=== PATIENT | female | born 1960 | race Caucasian/White ===

== ENCOUNTER 2021-10-06 11:00 | Outpatient (CLI) | payer MEDICARE, SELFPAY ==
[2021-10-06 11:40] LABS: Basophils % 0.4 %; Eosinophils % 0.1 %; Hematocrit 34.9 % (37.0-47.0); Hemoglobin 11.8 g/dL (11.5-15.3); Lymphocytes # 2.5 10^3/uL (0.8-4.8); Lymphocytes % 30.9 %; Mean Corpuscular HGB Conc 33.8 g/dL (30.0-36.0); Mean Corpuscular Hemoglobin 31.2 pg (28.0-34.0); Mean Corpuscular Volume 92.3 fl (81-99); Mean Platelet Volume 11.4 fL (7.4-10.4); Monocytes # 0.5 10^3/uL (0.2-0.9); Monocytes % 6.3 %; Neutrophils # 5.08 10^3/uL (1.8-7.7); Neutrophils % 62.2 %; Nucleated Red Blood Cells % 0 %; Platelet Count 279 10^3/cmm (130-400); Red Blood Count 3.78 10^6/uL (4.1-5.3); Red Cell Distribution Width 13.8 % (12.1-15.1); White Blood Count 8.2 10^3/uL (4.0-10.0)
[2021-10-06 12:07] LABS: Alanine Aminotransferase < 5 U/L (0-33); Albumin Level 4.3 g/dL (3.5-5.2); Alkaline Phosphatase 73 IU/L (35-105); Anion Gap 16.8 (5-19); Aspartate Amino Transferase 11 U/L (0-32); Blood Urea Nitrogen 7 mg/dL (6-20); Calcium 8.9 mg/dL (8.5-10.5); Carbon Dioxide 22 mmol/L (22-29); Chloride 103 mmol/L (98-107); Chol HDL Ratio 4.52 mg/dL (0.0-4.40); Cholesterol 199 mg/dL (0-200); Globulin 3.1 g/dL (1.3-4.6); Glomerular Filtration Rate 85.9 mL/min (90-130); Glucose 122 mg/dL (65-115); HDL Cholesterol 44 mg/dL (60-100); LDL Cholesterol Calculated 131 mg/dL (50-129); LDL HDL Ratio 2.98 RATIO (0.00-3.22); Osmolality Calculated 285 mOsm/kg (285-295); Potassium 3.8 mmol/L (3.5-5.1); Sodium 138 mmol/L (136-145); Thyroid Stimulating Hormone 0.55 uIU/mL (0.27-4.20); Total Bilirubin 0.3 mg/dL (0.15-1.2); Total Protein 7.4 g/dL (6.6-8.7); Triglycerides 120 mg/dL (0-150)
[2021-10-06 12:18] LABS: HIV 1 & 2 Antibody Non-Reactive (Non-Reactiv); HIV 1 & 2 Antigen Non-Reactive (Non-Reactiv)
[2021-10-06 14:42] LABS: Hepatitis C Virus Antibody Reactive (Nonreactive)
[2021-10-08 00:28] LABS: HEP C RNA Viral Load Quant <1.18 NOT DETECTED Log IU/mL (NOT DETECTED); HEP C RNA Viral Load Quant <15 NOT DETECTED IU/mL (NOT DETECTED)
== END 2021-10-06 11:01 | disposition home or self-care (01) ==
LOC: LAB 11:06
PROVIDERS: Family Provider Family Medicine; PCP Family Medicine; Visit Provider Family Medicine
DX: Z76.89 Persons encountering health services in other specified circumstances (principal); E78.2 Mixed hyperlipidemia; Z79.899 Other long term (current) drug therapy
CPT/HCPCS: 36415; 80053; 80061; 84443; 85025; 86803; 87522; 87806

== ENCOUNTER → 2021-10-28 09:58 | Outpatient (BNVA) | payer OTHER, SELFPAY | PROVIDERS: Family Provider Family Medicine; PCP Family Medicine; Visit Provider Psychiatry & Neurology Psychiatry | DX: F25.9 Schizoaffective disorder, unspecified (principal); F41.0 Panic disorder [episodic paroxysmal anxiety]; F41.1 Generalized anxiety disorder; M54.50 Low back pain, unspecified; Z79.899 Other long term (current) drug therapy | CPT/HCPCS: 80307 ==

== ENCOUNTER 2021-11-13 10:33 | Inpatient (IN) | payer MEDICARE, MEDICAID, SELFPAY ==
[2021-11-13 10:36] VITALS: BP 123/82; PULSE 81; RESP 16; TEMP 36.6; O2SAT 94; BMI 26.6
--- NOTE | 2021-11-13 10:50 | PC.NURSE ---
Pt reports feeling stressed and hasnt been able to keep anything down. Reports only nauseous when she drinks something. States she lives [facility] a [facility] and she feels like people are watching her in her shower and possibly putting stuff in her drinks. States she sees things in the shower drain and things go into her uterus and fire darts. Pt reports lower abdominal pain for last 4 days. Pt reports she fell off her bed a couple days ago onto the hard floor. Pt denies any hallucinations. Denies SI/Hi
[2021-11-13 11:00] LABS: Basophils # 0.1 10^3/uL (0.0-0.1); Basophils % 0.7 %; Eosinophils % 0.3 %; Hematocrit 37.2 % (37.0-47.0); Lymphocytes # 2.1 10^3/uL (0.8-4.8); Lymphocytes % 28.2 %; Mean Corpuscular HGB Conc 32.3 g/dL (30.0-36.0); Mean Corpuscular Hemoglobin 30.7 pg (28.0-34.0); Mean Corpuscular Volume 95.1 fl (81-99); Mean Platelet Volume 11.8 fL (7.4-10.4); Monocytes # 1.1 10^3/uL (0.2-0.9); Monocytes % 15.3 %; Neutrophils # 4.13 10^3/uL (1.8-7.7); Neutrophils % 55.4 %; Nucleated Red Blood Cells % 0 %; Platelet Count 227 10^3/cmm (130-400); Red Blood Count 3.91 10^6/uL (4.1-5.3); Red Cell Distribution Width 12.8 % (12.1-15.1); White Blood Count 7.5 10^3/uL (4.0-10.0)
[2021-11-13 11:08] VITALS: TEMP 36.9
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
[2021-11-13 11:29] LABS: Alanine Aminotransferase 11 U/L (0-33); Albumin Level 4.2 g/dL (3.5-5.2); Alkaline Phosphatase 89 U/L (35-105); Anion Gap 17.3 (5-19); Aspartate Amino Transferase 32 U/L (0-32); Blood Urea Nitrogen 13 mg/dL (6-20); Calcium 9.3 mg/dL (8.5-10.5); Carbon Dioxide 25 mmol/L (22-29); Chloride 97 mmol/L (98-107); Globulin 3.3 g/dL (1.3-4.6); Glomerular Filtration Rate 38.6 mL/min (90-130); Glucose 95 mg/dL (65-115); Osmolality Calculated 282 mOsm/kg (285-295); Potassium 3.3 mmol/L (3.5-5.1); Salicylate 0.5 mg/dL (3-10); Sodium 136 mmol/L (136-145); Total Bilirubin 0.4 mg/dL (0.15-1.2); Total Protein 7.5 g/dL (6.6-8.7)
[2021-11-13 11:30] LABS: Acetaminophen < 5.0 ug/mL (10-30)
--- NOTE | 2021-11-13 11:58 | PC.PHAR ---
UNABLE TO VERIFY MEDICATIONS WITH PT-MEDICATIONS ENTERED ARE MEDS THAT A [facility] WORKER HAD WROTE DOWN THAT THE PT TOOK AND ALSO WHAT EXT MED HISTORY SHOWS HAS BEEN FILLED RECENTLY-NOTES ARE MADE IN THE PHARMACY COMMENTS
[2021-11-13 12:00] VITALS: BP 139/84; RESP 14
--- NOTE | 2021-11-13 12:35 | PC.NURSE ---
Patient stated she doesn't walk, proceeded to sit on side of bed then lay back down, she was able to change out of her clothes into scrubs from lying position, personal belongings bagged and removed from room.
--- NOTE | 2021-11-13 12:50 | PC.NURSE ---
Pt requesting to see her sister who she was pointing in the [place] and yelling [place]. Pt does not have any visitors here. Informed pt she does not have any visitors here currently, pt able to be redirected.
--- NOTE | 2021-11-13 13:21 | PC.NURSE ---
report given to Bree on NPU
[2021-11-13 13:32] VITALS: BP 126/74; PULSE 70; RESP 17; TEMP 36.6; O2SAT 98
[2021-11-13 14:00] VITALS: BP 126/74; PULSE 70; RESP 17; TEMP 36.6; O2SAT 98
[2021-11-13 14:18] LABS: Alcohol Level < 10 mg/dL (0-10)
--- NOTE | 2021-11-13 14:51 | PC.ADMIT ---
[id number] Admission Note: The patient,Jade Rapp,60 y/o, was given written information regarding hospital policies, unit procedures and contact persons. Patient's smoking status: current every day smoker. Vital Signs - 8 hr 11/13/21 10:36 11/13/21 11:08 11/13/21 12:00 Temperature 98 F 98.5 F Pulse Rate 81 Respiratory Rate 16 14 Blood Pressure 123/82 139/84 Pulse Oximetry 94 Oxygen Delivery Method Room Air 11/13/21 13:32 11/13/21 14:00 Temperature 97.9 F 97.9 F Pulse Rate 70 70 Respiratory Rate 17 17 Blood Pressure 126/74 126/74 Pulse Oximetry 98 98 ADMITTED FROM ER VIA WHEELCHAIR AND SECURITY AT 1400. PT IS ON A 96 HOUR HOLD THAT ENDS ON 11/19/21 AT 1400. PT UNABLE TO GIVE ANY VIABLE INFORMATION DUE TO CURRENT ACUTE PSYCHOSIS. IT APPEARS PT IS RESPONDING TO INTERNAL AND EXTERNAL STIMULI. PT THINKS SHE IS SEEING AND HEARING HER SISTER IN THE HALLWAY.PT IS ABLE TO VERBALLY REDIRECT. PT STATES SHE IS HERE BECAUSE I THINK I FELT SICK PT DENIES SI/HI AND AVH AT THIS TIME. PT STATES I DON'T WANT TO ANSWER QUESTIONS I WANT TO EAT. PT WAS GIVEN A SANDWICH AND A DRINK. PT IS UNABLE TO REPORT WHAT MEDS SHE TAKES OR HER PHARMACY SO THIS RN CAN VERIFY. WILL CONTACT PHARMACY ON CHART TO VERIFY CURRENT MEDICATIONS. PT WAS OBSERVED RIPPING UP PAPER WORK AND 96 HOUR HOLD INFORMATION. PT WAS ORIENTATED TO UNIT. ALL QUESTIONS ANSWERED AND SUPPORT VOICED. Oxygen Delivery Method Room Air Room Air
[2021-11-13 14:58] LABS: Amphetamines Screen Urine Negative (Negative); Barbiturates Screen Urine Negative (Negative); Benzodiazepines Screen Urine Negative (Negative); Cocaine Screen Urine Negative (Negative); Opiate Screen Urine Negative (Negative); PCP Screen Urine Negative (Negative); THC Screen Urine Positive (Negative)
[2021-11-13] MEDS: hyDROXYzine 25 mg Capsule 50 MG PO (15:20)
--- NOTE | 2021-11-13 15:21 | PC.NURSE ---
PRN VISTARIL 50 MG GIVEN PO PER PT C/O STATED ANXIETY
[2021-11-13 19:48] VITALS: BP 103/69; PULSE 84; RESP 18; O2SAT 94
[2021-11-13] MEDS: ziprasidone hcl 40 mg Capsule 80 MG PO (23:16)
[2021-11-13] MEDS: carbidopa-levodopa 25-100mg Tablet 1 EACH PO (23:17)
[2021-11-13] MEDS: benztropine 1 mg Tablet PO (23:17)
[2021-11-13] MEDS: zolpidem 5 mg Tablet 10 MG PO (23:18)
[2021-11-13] MEDS: gabapentin 300 mg Capsule PO (23:18)
[2021-11-13] MEDS: ropinirole 1 mg Tablet PO (23:18)
[2021-11-13] MEDS: ibuprofen 600 mg Tablet PO (23:20)
[2021-11-14 06:00] VITALS: RESP 16
--- NOTE | 2021-11-14 09:09 | PC.OT ---
Pt sleeping and RN states pt not appropriate for eval at this time. Will attempt eval at later date.
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
[2021-11-14] MEDS: FUROsemide 20 mg Tablet PO (09:45)
[2021-11-14] MEDS: divalproex ER 500 mg Tablet (24H) PO (09:46)
[2021-11-14] MEDS: sertraline 100 mg Tablet PO (09:46)
[2021-11-14] MEDS: buprenorphine-naloxone 4-1 mg Film 2 EACH SUBLINGUAL ×3 (09:46→20:25)
[2021-11-14] MEDS: gabapentin 300 mg Capsule PO ×3 (09:46→20:25)
[2021-11-14] MEDS: ropinirole 1 mg Tablet PO ×3 (09:46→20:25)
[2021-11-14] MEDS: benztropine 1 mg Tablet PO ×3 (09:46→20:25)
[2021-11-14] MEDS: carbidopa-levodopa 25-100mg Tablet 1 EACH PO ×4 (12:25→20:26)
[2021-11-14] MEDS: diclofenac 1% Topical Gel 100 gm 4 APPLIC TOPICAL ×3 (12:29→17:05)
[2021-11-14] MEDS: ziprasidone hcl 20 mg Capsule 80 MG PO ×2 (12:39→18:51)
[2021-11-14 14:00] VITALS: BP 108/73; PULSE 76; RESP 16; O2SAT 98
[2021-11-14 16:02] VITALS: PULSE 76; RESP 16; O2SAT 98
[2021-11-14] MEDS: ibuprofen 600 mg Tablet PO (16:11)
[2021-11-14] MEDS: tizanidine 4 mg Tablet PO (16:11)
[2021-11-14] MEDS: OLANZapine 5 mg ODT PO (16:12)
[2021-11-14] MEDS: zolpidem 5 mg Tablet 10 MG PO (20:25)
[2021-11-14 22:00] VITALS: RESP 15
[2021-11-14 23:15] VITALS: PULSE 72; RESP 16; O2SAT 95
[2021-11-15 06:00] VITALS: BP 109/73; PULSE 90; RESP 17; O2SAT 93
[2021-11-15] MEDS: sertraline 100 mg Tablet PO (08:44)
[2021-11-15] MEDS: ziprasidone hcl 20 mg Capsule 80 MG PO ×2 (08:44→17:04)
[2021-11-15] MEDS: divalproex ER 500 mg Tablet (24H) PO (08:46)
[2021-11-15] MEDS: gabapentin 300 mg Capsule PO ×3 (08:46→19:59)
[2021-11-15] MEDS: benztropine 1 mg Tablet PO ×3 (08:46→19:59)
[2021-11-15] MEDS: ropinirole 1 mg Tablet PO ×3 (08:46→19:59)
[2021-11-15] MEDS: FUROsemide 20 mg Tablet PO (08:46)
[2021-11-15] MEDS: buprenorphine-naloxone 4-1 mg Film 2 EACH SUBLINGUAL ×3 (08:46→19:59)
[2021-11-15] MEDS: carbidopa-levodopa 25-100mg Tablet 1 EACH PO ×4 (08:46→19:59)
[2021-11-15] MEDS: diclofenac 1% Topical Gel 100 gm 4 APPLIC TOPICAL ×3 (12:01→17:00)
[2021-11-15 14:00] VITALS: BP 95/57; PULSE 71; RESP 16; TEMP 36.7; O2SAT 98
--- NOTE | 2021-11-15 14:16 | P.NPUPN_ITS ---
Subjective NPU Subjective: Patient presents today reporting that she is feeling a little better today. We discussed her medication adherence and she denied having any organized way that she takes her medication. Just the bottles. She is not having any pill counters or planners and reported an openness to having that so that she could avoid any missed doses and any possible recreation of the situation. We discussed the likely discharge in the next 48 hours. Mental Status Exam MSE Comments: This is an overweight white female in hospital scrubs with limited grooming and adequate eye contact. Absent dentition. No abnormal movements except for mild psychomotor retardation. Cooperative with exam in mild distress. Speech was decreased rate and volume with decreased pauses. Mood described as getting better, affect less subdued. Thought process organized, thought content: patient denies suicidal or homicidal ideation, there were no delusions reported or noted, she denied any auditory or visual hallucinations. Attention and concentration were intact and memory appeared mostly reliable but none were formally tested. She?s alert and oriented times three. Insight and judgment appeared limited but improving and impulse control appeared fair Vitals/I&O/Wt Last Vital Signs Temp 98.7 F 11/15/21 20:17 Pulse 94 11/15/21 20:17 Resp 18 11/15/21 20:17 BP 78/51 11/15/21 20:17 Pulse Ox 96 11/15/21 20:17 O2 Del Method 11/15/21 20:00 Data NPU : 11/13/21 10:50 11/13/21 10:50 A&P Assessment and plan (1) Acute psychosis: Status: Acute (2) Cannabis use disorder, moderate, dependence: Status: Acute (3) Insomnia: Status: Acute Qualifiers: Insomnia type: unspecified Qualified Code(s): G47.00 - Insomnia, unspecified (4) Schizoaffective disorder: Status: Acute (5) Opioid use disorder, severe, dependence: Status: Acute (6) Opioid dependence on agonist therapy: Status: Acute Plan This is a 60-year-old white female with a long history of mental illness and some limited addiction history who presented to the emergency department with psychosis of unknown etiology and given her history is unclear whether this represented her baseline illness exacerbation related to not taking medications or something else or some kind of exacerbation through addiction. 1. Continue current medication. We will continue medications and explore whether the psychotic symptoms are related to nonadherence. 2. Continue every 15 minute checks for safety. 3. Encourage individual, group and milieu therapies. 4. Encourage sober living treatment after discharge at the highest level of care to which he is willing to commit. Involuntary Hold Information 96 Hour Hold: 96 Hour Involuntary Admission: Yes 96 Hour Hold Ending Date: 11/19/21 96 Hour Hold Ending Time: 14:00 Attestations NPU Medical Necessity Statement*: Inpatient hospitalization is medically necessary and the clinically appropriate intervention at this time. We will monitor medication to make changes as indicated. Likely length of stay 1-3 days. 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
[2021-11-15] MEDS: tizanidine 4 mg Tablet PO (15:09)
[2021-11-15] MEDS: zolpidem 5 mg Tablet 10 MG PO (19:58)
[2021-11-15 20:00] VITALS: PULSE 94; RESP 16; O2SAT 98
[2021-11-15 20:17] VITALS: BP 78/51; PULSE 94; RESP 18; TEMP 37.1; O2SAT 96
[2021-11-16 06:00] VITALS: BP 96/54; PULSE 87; RESP 16; TEMP 36.8; O2SAT 95
[2021-11-16] MEDS: benztropine 1 mg Tablet PO ×3 (09:00→19:58)
[2021-11-16] MEDS: sertraline 100 mg Tablet PO (09:06)
[2021-11-16] MEDS: ropinirole 1 mg Tablet PO ×3 (09:06→19:57)
[2021-11-16] MEDS: buprenorphine-naloxone 4-1 mg Film 2 EACH SUBLINGUAL ×3 (09:06→19:58)
[2021-11-16] MEDS: ziprasidone hcl 20 mg Capsule 80 MG PO ×2 (09:06→15:58)
[2021-11-16] MEDS: divalproex ER 500 mg Tablet (24H) PO (09:08)
[2021-11-16] MEDS: FUROsemide 20 mg Tablet PO (09:08)
[2021-11-16] MEDS: carbidopa-levodopa 25-100mg Tablet 1 EACH PO ×4 (09:08→19:58)
[2021-11-16] MEDS: gabapentin 300 mg Capsule PO ×3 (09:09→19:58)
[2021-11-16] MEDS: diclofenac 1% Topical Gel 100 gm 4 APPLIC TOPICAL ×3 (09:10→19:59)
[2021-11-16 13:48] VITALS: BP 96/59; PULSE 61; RESP 17; TEMP 36.6; O2SAT 99
--- NOTE | 2021-11-16 14:03 | W.PM.NPUPNS ---
Subjective NPU Subjective: Patient presents today very focused on discharge. Unfortunately she has nowhere to go and seem to have limited insight on the impact of that on being discharged. We did have a another lengthy discussion about the importance of her having an organized medication dispensing process. Discussing that he is taking 1 pill out of the bottle when necessary becomes a very difficult way to contract with her medication was taken for the day given so many medications. She was agreeable to this and reports that unfortunately if she returns to [facility] they do not provide that. We discussed working with the treatment team in the morning to see if she can return to [facility] that discharge was eminent. Mental Status Exam MSE Comments: This is an overweight white female in hospital scrubs with limited grooming and adequate eye contact. Absent dentition. No abnormal movements except for mild psychomotor retardation. Cooperative with exam in no acute distress. Speech was decreased rate and volume. Mood described as getting better, affect congruent. Thought process organized, thought content: patient denies suicidal or homicidal ideation, there were no delusions reported or noted, she denied any auditory or visual hallucinations. Attention and concentration were intact and memory appeared mostly reliable but none were formally tested. She?s alert and oriented times three. Insight and judgment appeared limited but improving and impulse control appeared fair Vitals/I&O/Wt Last Vital Signs Temp 97.8 F 11/16/21 13:48 Pulse 61 11/16/21 13:48 Resp 17 11/16/21 13:48 BP 96/59 11/16/21 13:48 Pulse Ox 99 11/16/21 13:48 O2 Del Method 11/16/21 13:48 Weight last 48 hrs Weight 77.292 kg Data NPU : 11/13/21 10:50 11/13/21 10:50 A&P Assessment and plan (1) Acute psychosis: Status: Acute (2) Cannabis use disorder, moderate, dependence: Status: Acute (3) Insomnia: Status: Acute Qualifiers: Insomnia type: unspecified Qualified Code(s): G47.00 - Insomnia, unspecified (4) Schizoaffective disorder: Status: Acute (5) Opioid use disorder, severe, dependence: Status: Acute (6) Opioid dependence on agonist therapy: Status: Acute Plan This is a 60-year-old white female with a long history of mental illness and some limited addiction history who presented to the emergency department with psychosis of unknown etiology and given her history is unclear whether this represented her baseline illness exacerbation related to not taking medications or something else or some kind of exacerbation through addiction. 1. Continue current medication. We will continue medications and explore whether the psychotic symptoms are related to nonadherence. 2. Continue every 15 minute checks for safety. 3. Encourage individual, group and milieu therapies. 4. Encourage sober living treatment after discharge at the highest level of care to which he is willing to commit. Involuntary Hold Information 96 Hour Hold: 96 Hour Involuntary Admission: Yes 96 Hour Hold Ending Date: 11/19/21 96 Hour Hold Ending Time: 14:00 Attestations NPU Medical Necessity Statement*: Inpatient hospitalization is medically necessary and the clinically appropriate intervention at this time. We will monitor medication to make changes as indicated. Likely length of stay 1-2 days. Coding Level of Care Code Acute [employer] for [facility] Diagnoses Acute psychosis F23 Cannabis use disorder, moderate, dependence F12.20 Insomnia G47.00 Insomnia type: unspecified Schizoaffective disorder F25.9 Opioid use disorder, severe, dependence F11.20 Opioid dependence on agonist therapy F11.20
[2021-11-16] MEDS: zolpidem 5 mg Tablet 10 MG PO (19:58)
[2021-11-16 22:00] VITALS: BP 78/41; BP 81/50; BP 88/48; PULSE 59; RESP 19; TEMP 36.6; O2SAT 94
[2021-11-17 06:00] VITALS: BP 93/60; PULSE 53; RESP 18; TEMP 36.8; O2SAT 95
[2021-11-17] MEDS: FUROsemide 20 mg Tablet PO (07:57)
[2021-11-17] MEDS: divalproex ER 500 mg Tablet (24H) PO (07:57)
[2021-11-17] MEDS: ropinirole 1 mg Tablet PO ×2 (07:57→15:08)
[2021-11-17] MEDS: carbidopa-levodopa 25-100mg Tablet 1 EACH PO ×2 (07:58→13:18)
[2021-11-17] MEDS: buprenorphine-naloxone 4-1 mg Film 2 EACH SUBLINGUAL ×2 (07:58→15:08)
[2021-11-17] MEDS: diclofenac 1% Topical Gel 100 gm 4 APPLIC TOPICAL ×2 (07:58→13:18)
[2021-11-17] MEDS: benztropine 1 mg Tablet PO ×2 (07:58→15:08)
[2021-11-17] MEDS: ziprasidone hcl 20 mg Capsule 80 MG PO (08:01)
[2021-11-17] MEDS: sertraline 100 mg Tablet PO (08:01)
[2021-11-17] MEDS: gabapentin 300 mg Capsule PO ×2 (08:01→15:08)
--- NOTE | 2021-11-17 12:12 | DCPLANNER ---
IMM completed with pt on 11/17/21 @ [id number]. Pt was given a copy of rights and she stated she understoo rights.
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
[2021-11-17 15:13] VITALS: BP 93/60; PULSE 53; RESP 18; TEMP 36.8; O2SAT 95
== END 2021-11-17 15:25 | disposition home or self-care (01) | DRG 885 ==
LOC: ER 11:30 → NP 12:48
PROVIDERS: Admitting Provider Psychiatry & Neurology Psychiatry; Emergency Provider Family Medicine; PCP Family Medicine; Visit Provider Psychiatry & Neurology Psychiatry
DX: F20.9 Schizophrenia, unspecified (principal); F11.20 Opioid dependence, uncomplicated; Z59.01 Sheltered homelessness; J44.9 Chronic obstructive pulmonary disease, unspecified; F12.20 Cannabis dependence, uncomplicated; F17.210 Nicotine dependence, cigarettes, uncomplicated; F17.290 Nicotine dependence, other tobacco product, uncomplicated; F10.21 Alcohol dependence, in remission; G47.00 Insomnia, unspecified; Z79.51 Long term (current) use of inhaled steroids
CPT/HCPCS: 36415; 80053; 80164; 80306; 80307; 81001; 85025; 96372; 97150; 97165; 99285; J0573; J1200; J3486

== ENCOUNTER 2021-11-19 00:20 | Inpatient (IN) | payer MEDICARE, MEDICAID, SELFPAY ==
[2021-11-19] VITALS (8 sets, daily range): BP systolic 90–129; BP diastolic 59–95; PULSE 60–101; RESP 12–18; TEMP 36.3–36.9; O2SAT 93–99; BMI 27.4
--- NOTE | 2021-11-19 00:32 | ED_ITS ---
HPI - Allergic Reaction General: Chief complaint: Psychiatric Symptoms Stated complaint: HALLUCINATIONS Time Seen by Provider: 11/19/21 00:23 Source: patient and EMS Mode of arrival: EMS Limitations: no limitations History of Present Illness: HPI narrative: 60-year-old female who is here from [facility] with EMS. Patient was recently discharged from the psych unit here per EMS she supposedly not been taking her meds she is acutely psychotic here with hallucinations not making any sense she is extremely paranoid denies any suicidal homicidal ideations. Denies any worsening proving factors. Associated symptoms: Deny abdominal pain, nausea or vomiting Review of Systems Const: Denies: fever(s), chills, body aches or change in appetite Eyes: Denies: blurry vision or eye discomfort ENMT: Denies: throat pain or dental pain Card: Denies: chest pain Resp: Denies: dyspnea GI: Denies: abdominal pain, nausea, vomiting or diarrhea : Denies: dysuria Musc: Denies: neck pain or back pain Skin/Breast: Denies: rash Neuro: Denies: headache(s) Psych: Reports: irritability, paranoia and visual hallucinations Miguel/Lymph: Denies: easy bruising All/Imm: Denies: urticaria PFSH ED PFSH: Medical History Psychiatric care Social History Smoking and tobacco status: current every day smoker cigarettes Packs smoked per day: 0.40 Years cigarettes smoked: 23 and e-cigarettes E-Cigarette Details: vaporizer device and with nicotine E-cig/vape details: One refill/two months. Quit status (tobacco): not considering quitting Second hand smoke exposure: No Smoking risk assessment/counseling performed?: No Alcohol intake: former Year of sobriety/quit date alcohol: 1994 Desire information about alcohol rehabilitation?: No Counseling given: No Desire information about substance/drug rehabilitation?: No Counseling given: No Physical Exam Const: COMMON NORMALS: patient oriented x3 GENERAL APPEARANCE: disheveled HENMT: COMMON NORMALS: normocephalic and atraumatic HEAD & SCALP: normocephalic and atraumatic Eye: COMMON NORMALS: Equal, round and reactive pupils present and EOMs intact bilaterally PUPIL: Yes Equal, round and reactive pupils present Neck/C-Spine: COMMON NORMALS: full ROM and supple Chest: COMMONS NORMALS: normal inspection of the chest and normal palpation of entire chest wall Resp: COMMON NORMALS: normal respiratory effort, No retractions, No use of accessory muscles and clear to auscultation bilaterally AUSCULTATION: clear to auscultation bilaterally Cardio: COMMON NORMALS: regular rate, regular rhythm and No murmurs present (Cardio) RATE: regular rate RHYTHM: regular rhythm GI: COMMON NORMALS: Normal to inspection, nondistended, normoactive bowel sounds present, Soft to palpation, non-tender and no masses PALPATION: Yes Soft to palpation Extremity: COMMON NORMALS: normal to inspection and full ROM Neuro: COMMON NORMALS: patient oriented x3, moves all extremities and no focal motor deficits Psych: COMMON NORMALS: mental status grossly normal MOOD & AFFECT: Yes an xious THOUGHT CONTENT: Yes delusions and Yes Hallucination(s) present Skin: COMMON NORMALS: no rashes or lesions noted and no wounds GENERAL SKIN EXAM: no rashes or lesions noted Course Vital Signs: Vital signs: Vital Signs Temperature 97.3 F L 11/19/21 00:21 Pulse Rate 60 11/19/21 03:26 Respiratory Rate 15 11/19/21 03:26 Blood Pressure 124/95 11/19/21 03:26 Pulse Oximetry 93 11/19/21 03:26 Oxygen Delivery Me thod 11/19/21 03:26 MDM - Allergic Reaction Medical Decision Making Patient presents here with acute psychosis she is supposedly not been taking her meds since she is discharged from here I spoke to Dr. London patient is medically cleared will admit to the psych unit. Lab Data : 11/19/21 02:07 11/19/21 02:07 Laboratory Results WBC 8.4 10^3/uL (4.0-10.0) 11/19/21 02:07 RBC 3.77 10^6/uL (4.1-5.3) L 11/19/21 02:07 Hgb 11.6 g/dL (11.5-15.3) 11/19/21 02:07 Hct 36.3 % (37.0-47.0) L 11/19/21 02:07 MCV 96.3 fl (81-99) 11/19/21 02:07 MCH 30.8 pg (28.0-34.0) 11/19/21 02:07 MCHC 32.0 g/dL (30.0-36.0) 11/19/21 02:07 RDW 12.6 % (12.1-15.1) 11/19/21 02:07 Plt Count 272 10^3/cmm (130-400) 11/19/21 02:07 MPV 11.4 fL (7.4-10.4) H 11/19/21 02:07 Neut % (Auto) 57.9 % 11/19/21 02:07 Lymph % (Auto) 28.8 % 11/19/21 02:07 Stone % (Auto) 12.4 % 11/19/21 02:07 Eos % (Auto) 0.1 % 11/19/21 02:07 Baso % (Auto) 0.7 % 11/19/21 02:07 Neut # (Auto) 4.87 10^3/uL (1.8-7.7) 11/19/21 02:07 Lymph # (Auto) 2.4 10^3/uL (0.8-4.8) 11/19/21 02:07 Stone # (Auto) 1.0 10^3/uL (0.2-0.9) H 11/19/21 02:07 Eos # (Auto) 0.0 10^3/uL (0.0-0.8) 11/19/21 02:07 Baso # (Auto) 0.1 10^3/uL (0.0-0.1) 11/19/21 02:07 Nucleated RBC % (auto) 0 % 11/19/21 02:07 Nucleated RBCs # 0.0 /100WBC 11/19/21 02:07 Sodium 137 mmol/L (136-145) 11/19/21 02:07 Potassium 3.5 mmol/L (3.5-5.1) 11/19/21 02:07 Chloride 99 mmol/L (98-107) 11/19/21 02:07 Carbon Dioxide 26 mmol/L (22-29) 11/19/21 02:07 Anion Gap 15.5 (5-19) 11/19/21 02:07 BUN 12 mg/dL (6-20) 11/19/21 02:07 Creatinine 0.6 mg/dL (0.5-0.9) 11/19/21 02:07 GFR Calculation 102.7 mL/min (90-130) 11/19/21 02:07 Glucose 103 mg/dL (65-115) 11/19/21 02:07 Calculated Osmolality 284 mOsm/kg (285-295) L 11/19/21 02:07 Calcium 8.9 mg/dL (8.5-10.5) 11/19/21 02:07 Total Bilirubin 0.2 mg/dL (0.15-1.2) 11/19/21 02:07 AST 14 U/L (0-32) 11/19/21 02:07 ALT 13 U/L (0-33) 11/19/21 02:07 Alkaline Phosphatase 80 U/L (35-105) 11/19/21 02:07 Total Protein 7.2 g/dL (6.6-8.7) 11/19/21 02:07 Albumin 3.8 g/dL (3.5-5.2) 11/19/21 02:07 Globulin 3.4 g/dL (1.3-4.6) 11/19/21 02:07 Salicylates 0.6 mg/dL (3-10) L 11/19/21 02:07 Acetaminophen < 5.0 ug/mL (10-30) L 11/19/21 02:07 Ethyl Alcohol < 10 mg/dL (0-10) 11/19/21 02:07 Discharge Plan Discharge Patient Disposition: Admitted As Inpatient Clinical Impression: Acute psychosis Condition: Stable Prescriptions: No Action albuterol sulfate 90 mcg/actuation HFA aerosol inhaler 2 puff inhalation Q6H PRN (Reason: shortness of breath or wheezing) Qty: 8.5 2RF divalproex 500 mg tablet extended release 24 hr 500 mg PO DAILY Qty: 30 2RF furosemide 20 mg tablet 20 mg PO DAILY Qty: 30 2RF gabapentin 300 mg capsule 300 mg PO TID Qty: 90 2RF omeprazole 20 mg tablet,delayed release (DR/EC) 20 mg PO BID Qty: 60 0RF ropinirole 1 mg tablet 1 mg PO TID Qty: 90 2RF sertraline 100 mg tablet 100 mg PO DAILY Qty: 30 2RF tizanidine 4 mg tablet 4 mg PO BID PRN (Reason: muscle spasticity) Qty: 60 2RF ziprasidone HCl 80 mg capsule 80 mg PO BID Qty: 60 2RF Rx Instructions: give with food (meal/snack) zolpidem 10 mg tablet 10 mg PO DAILY Qty: 30 2RF benztropine 1 mg tablet 1 mg PO TID Qty: 90 2RF buprenorphine-naloxone [Suboxone] 8-2 mg film 1 film sublingual TID Qty: 90 0RF diclofenac sodium [Arthritis Pain (diclofenac)] 1 % gel 4 g topical QID Qty: 100 2RF Rx Instructions: apply to single knee, ankle, foot; for foot includes sole/toes/top of foot diclofenac sodium 100 mg tablet extended release 24 hr 100 mg PO DAILY Qty: 90 1RF carbidopa-levodopa 25-100 mg tablet 1 tab PO QID Qty: 120 2RF diphenhydramine HCl [Benadryl Allergy] 25 mg Tablet 25 mg PO TID PRN (Reason: Allergy Symptoms) ibuprofen 200 mg Tablet 200 - 800 mg PO Q6H PRN (Reason: Pain) potassium gluconate 595 mg (99 mg) Tablet 595 mg PO DAILY Referrals: Negrito Christy DO [Primary Care Provider] - Coding Level of Care Code ED Optical Glass Inspector for Chg Fwd Exam Comprehensive
[2021-11-19] MEDS: ziprasidone 20 mg/mL SDV IM (00:43)
[2021-11-19] MEDS: diphenhydrAMINE 50 mg/mL SDV 1mL IM (00:45)
[2021-11-19] MEDS: LORazepam 1 mg Tablet 2 MG PO (00:48)
[2021-11-19 02:19] LABS: Basophils # 0.1 10^3/uL (0.0-0.1); Basophils % 0.7 %; Eosinophils % 0.1 %; Hematocrit 36.3 % (37.0-47.0); Hemoglobin 11.6 g/dL (11.5-15.3); Lymphocytes # 2.4 10^3/uL (0.8-4.8); Lymphocytes % 28.8 %; Mean Corpuscular Hemoglobin 30.8 pg (28.0-34.0); Mean Corpuscular Volume 96.3 fl (81-99); Mean Platelet Volume 11.4 fL (7.4-10.4); Monocytes % 12.4 %; Neutrophils # 4.87 10^3/uL (1.8-7.7); Neutrophils % 57.9 %; Nucleated Red Blood Cells % 0 %; Platelet Count 272 10^3/cmm (130-400); Red Blood Count 3.77 10^6/uL (4.1-5.3); Red Cell Distribution Width 12.6 % (12.1-15.1); White Blood Count 8.4 10^3/uL (4.0-10.0)
[2021-11-19 02:46] LABS: Alanine Aminotransferase 13 U/L (0-33); Albumin Level 3.8 g/dL (3.5-5.2); Alkaline Phosphatase 80 U/L (35-105); Anion Gap 15.5 (5-19); Aspartate Amino Transferase 14 U/L (0-32); Blood Urea Nitrogen 12 mg/dL (6-20); Calcium 8.9 mg/dL (8.5-10.5); Carbon Dioxide 26 mmol/L (22-29); Chloride 99 mmol/L (98-107); Globulin 3.4 g/dL (1.3-4.6); Glomerular Filtration Rate 102.7 mL/min (90-130); Glucose 103 mg/dL (65-115); Osmolality Calculated 284 mOsm/kg (285-295); Potassium 3.5 mmol/L (3.5-5.1); Salicylate 0.6 mg/dL (3-10); Sodium 137 mmol/L (136-145); Total Bilirubin 0.2 mg/dL (0.15-1.2); Total Protein 7.2 g/dL (6.6-8.7)
[2021-11-19 03:34] LABS: Acetaminophen < 5.0 ug/mL (10-30); Alcohol Level < 10 mg/dL (0-10)
--- NOTE | 2021-11-19 03:51 | PC.NURSE ---
Patient report called to [facility] on [facility], patient moving to 150.2
[2021-11-19] MEDS: OLANZapine 5 mg ODT PO ×2 (04:48→14:12)
[2021-11-19 05:03] LABS: Amphetamines Screen Urine Negative (Negative); Barbiturates Screen Urine Negative (Negative); Benzodiazepines Screen Urine Positive (Negative); Cocaine Screen Urine Negative (Negative); Opiate Screen Urine Negative (Negative); PCP Screen Urine Negative (Negative); THC Screen Urine Positive (Negative)
[2021-11-19 05:10] LABS: Bilirubin Urine Neg (Negative); Blood Urine Neg (Negative); Glucose Urine UA Norm (Normal); Ketones Urine 1+ (Negative); Nitrate Urine Negative (Negative); Protein Urine Neg (Negative); Urine Appearance Clear (CLEAR); Urine Color Yellow (Yellow); pH Urine 6.5 (5-7)
[2021-11-19 05:11] LABS: Add Urine Microscopic? YES; Leukocyte Esterase Urine 1+ (Negative); Urobilinogen Urine Norm (Negative)
[2021-11-19 05:12] LABS: Add Urine Culture? No; Amorphous Sediment Urine 1+ /hpf; Bacteria Urine 1+ /hpf; Mucus Urine 1+ /hpf; RBC Urine 0-4 /hpf (0-2); WBC Urine 0-4 /hpf (0-5)
[2021-11-19 08:27] LABS: Valproic Acid Level 23.5 ug/mL (50-100)
--- NOTE | 2021-11-19 09:05 | PC.OT ---
OT EVALUATION ORDERS RECEIVED; EVALUATION ATTEMPTED. PATIENT IS SLEEPING SOUNDLY AND DOES NOT AWAKEN TO NAME. WILL ATTEMPT AGAIN AT A LATER TIME.
[2021-11-19] MEDS: FUROsemide 20 mg Tablet PO (09:51)
[2021-11-19] MEDS: divalproex ER 500 mg Tablet (24H) PO (09:51)
[2021-11-19] MEDS: ropinirole 1 mg Tablet PO ×3 (09:51→21:10)
[2021-11-19] MEDS: pantoprazole DR 40 mg Tablet PO ×2 (09:51→18:16)
[2021-11-19] MEDS: sertraline 100 mg Tablet PO (09:51)
[2021-11-19] MEDS: ziprasidone hcl 40 mg Capsule 80 MG PO ×2 (09:52→18:16)
[2021-11-19] MEDS: benztropine 1 mg Tablet PO ×3 (09:52→21:08)
[2021-11-19] MEDS: gabapentin 300 mg Capsule PO ×3 (09:53→21:10)
[2021-11-19] MEDS: carbidopa-levodopa 25-100mg Tablet 1 EACH PO ×4 (09:54→21:11)
[2021-11-19] MEDS: diclofenac 1% Topical Gel 100 gm 4 APPLIC TOPICAL ×4 (09:54→21:18)
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
[2021-11-19] MEDS: buprenorphine-naloxone 4-1 mg Film 2 EACH SUBLINGUAL ×2 (15:58→21:08)
[2021-11-19] MEDS: ibuprofen 600 mg Tablet PO (21:09)
--- NOTE | 2021-11-20 01:05 | PC.NURSE ---
Medicated patient with Ibuprofen 600 mg for back pain.
[2021-11-20 06:00] VITALS: BP 116/74; PULSE 66; RESP 16; TEMP 36.8; O2SAT 95
[2021-11-20] MEDS: ropinirole 1 mg Tablet PO ×3 (08:21→21:55)
[2021-11-20] MEDS: buprenorphine-naloxone 4-1 mg Film 2 EACH SUBLINGUAL ×3 (08:21→21:55)
[2021-11-20] MEDS: FUROsemide 20 mg Tablet PO (08:21)
[2021-11-20] MEDS: tizanidine 4 mg Tablet PO ×2 (08:21→22:11)
[2021-11-20] MEDS: hyDROXYzine 25 mg Capsule 50 MG PO ×2 (08:21→22:11)
[2021-11-20] MEDS: acetaminophen 325 mg Tablet 650 MG PO (08:21)
[2021-11-20] MEDS: benztropine 1 mg Tablet PO ×3 (08:21→21:55)
[2021-11-20] MEDS: sertraline 100 mg Tablet PO (08:21)
[2021-11-20] MEDS: pantoprazole DR 40 mg Tablet PO ×2 (08:22→18:01)
[2021-11-20] MEDS: divalproex ER 500 mg Tablet (24H) PO (08:22)
[2021-11-20] MEDS: gabapentin 300 mg Capsule PO ×3 (08:22→21:55)
[2021-11-20] MEDS: carbidopa-levodopa 25-100mg Tablet 1 EACH PO ×4 (08:23→21:55)
--- NOTE | 2021-11-20 09:54 | PC.NURSE ---
PT IN BED COOPERATIVE WITH ASSESSMENT. DENIES SI/HI AND AVH AT THIS TIME. REPORTED 8/10 BACK PAIN, MED NURSE WAS NOTIFIED TO GIVE TYLENOL ORDERED. PT IS VISIBLY ANXIUOS. MED NURSE INFORMED TO GIVE ANXIETY MED ORDERED. PT COMPLIANT WITH MEDS. REPORTS SHE SLEPT WELL LAST NIGHT. ALL QUESTIONS ANSWERED AND SUPPORT VOICED.
--- NOTE | 2021-11-20 11:31 | P.NPUPN_ITS ---
Subjective NPU Subjective: Patient presents today reporting that she is doing okay. She continues to have limited insight into why things went to the wrong after she was discharged. She was telling some story about trying to get some sleep and the person closest to her was watching TV late which started a conflict of some sort. Otherwise he had no clear concerns. She denies any current symptoms and reports he is sleeping more than she probably should and is eating okay. Mental Status Exam MSE Comments: This is an overweight white female in hospital scrubs with limited grooming and adequate eye contact. Absent dentition. No abnormal movements except for significant psychomotor retardation. Cooperative with exam in no acute distress. Speech was decreased rate and volume. Mood described as I feel okay, affect congruent. Thought process linear, thought content: patient denies suicidal or homicidal ideation, there were no delusions reported or noted, she denied any auditory or visual hallucinations. Attention and concentration were intact and memory appeared unreliable but none were formally tested. She?s alert and oriented times three. Insight and judgment appeared impaired and impulse control appeared limited. Vitals/I&O/Wt Last Vital Signs Temp 98.3 F 11/20/21 06:00 Pulse 66 11/20/21 06:00 Resp 16 11/20/21 06:00 BP 116/74 11/20/21 06:00 Pulse Ox 95 11/20/21 06:00 O2 Del Method 11/20/21 06:00 Data NPU : 11/19/21 02:07 11/19/21 02:07 A&P Assessment and plan (1) Acute psychosis: Status: Resolved (2) Cannabis use disorder, moderate, dependence: Status: Acute (3) Insomnia: Status: Acute Qualifiers: Insomnia type: unspecified Qualified Code(s): G47.00 - Insomnia, unspecified (4) Schizoaffective disorder: Status: Acute (5) Opioid use disorder, severe, dependence: Status: Deleted (6) Opioid dependence on agonist therapy: Status: Acute Plan This is a 60-year-old white female with a long history of mental illness and some limited addiction history who presented to the emergency department 2 days after discharge with psychosis 1. Continue current medication. We will consider medication changes. 2. Continue every 15 minute checks for safety. 3. Encourage individual, group and milieu therapies. 4. Encourage sober living treatment after discharge at the highest level of care to which he is willing to commit. Involuntary Hold Information 96 Hour Hold: 96 Hour Involuntary Admission: No Attestations NPU Medical Necessity Statement*: Inpatient hospitalization is medically necessary and the clinically appropriate intervention at this time. We will monitor medication to make changes as indicated.Likely length of stay 2-4 days. Coding Level of Care Code Acute Security Control Center Operator for [facility] Diagnoses Acute psychosis F23 Cannabis use disorder, moderate, dependence F12.20 Insomnia G47.00 Insomnia type: unspecified Schizoaffective disorder F25.9 Opioid use disorder, severe, dependence F11.20 Opioid dependence on agonist therapy F11.20
[2021-11-20] MEDS: ziprasidone hcl 40 mg Capsule 80 MG PO ×2 (12:37→18:01)
[2021-11-20] MEDS: diclofenac 1% Topical Gel 100 gm 4 APPLIC TOPICAL ×3 (12:49→21:55)
[2021-11-20 14:00] VITALS: BP 102/70; PULSE 64; RESP 20; TEMP 36.9; O2SAT 94
[2021-11-20] MEDS: zolpidem 5 mg Tablet 10 MG PO (21:55)
[2021-11-20 22:00] VITALS: BP 95/59; PULSE 70; RESP 16; TEMP 36.8; O2SAT 95
[2021-11-20] MEDS: ibuprofen 600 mg Tablet PO (22:11)
[2021-11-21 06:00] VITALS: BP 115/73; PULSE 66; RESP 18; TEMP 36.6; O2SAT 96
[2021-11-21] MEDS: buprenorphine-naloxone 4-1 mg Film 2 EACH SUBLINGUAL ×3 (08:54→23:06)
[2021-11-21] MEDS: sertraline 100 mg Tablet PO (08:55)
[2021-11-21] MEDS: FUROsemide 20 mg Tablet PO (08:55)
[2021-11-21] MEDS: carbidopa-levodopa 25-100mg Tablet 1 EACH PO ×4 (08:55→23:06)
[2021-11-21] MEDS: pantoprazole DR 40 mg Tablet PO ×2 (08:55→17:25)
[2021-11-21] MEDS: benztropine 1 mg Tablet PO ×3 (08:55→23:06)
[2021-11-21] MEDS: ropinirole 1 mg Tablet PO ×3 (08:55→23:06)
[2021-11-21] MEDS: ziprasidone hcl 40 mg Capsule 80 MG PO ×2 (08:55→17:25)
[2021-11-21] MEDS: divalproex ER 500 mg Tablet (24H) PO (08:55)
[2021-11-21] MEDS: gabapentin 300 mg Capsule PO ×3 (08:55→23:06)
[2021-11-21] MEDS: diclofenac 1% Topical Gel 100 gm 4 APPLIC TOPICAL ×3 (08:58→17:25)
[2021-11-21 14:00] VITALS: BP 103/65; PULSE 64; RESP 18; TEMP 36.8; O2SAT 97
--- NOTE | 2021-11-21 16:31 | W.PM.NPUPNS ---
Subjective NPU Subjective: Patient presents today reporting that she except the fact that it is in her best interest to return to [facility]. However she really wants to make sure that she has a long-term vision with her support team at the [facility]. She continues to deny a clear problem at [facility] but also denies that she is using any drugs there either. She has not had any issues here on the unit which we discussed argued against needing to make major changes in her treatment regimen. Mental Status Exam MSE Comments: This is an overweight white female in hospital scrubs with limited grooming and adequate eye contact. Absent dentition. No abnormal movements except for mild psychomotor retardation. Cooperative with exam in mild distress. Speech was more normal rate and decreased volume. Mood described as I all right, affect congruent. Thought process linear, thought content: patient denies suicidal or homicidal ideation, there were no delusions reported or noted, she denied any auditory or visual hallucinations. Attention and concentration were intact and memory appeared unreliable but none were formally tested. She?s alert and oriented times three. Insight and judgment appeared improving and impulse control appeared limited. Vitals/I&O/Wt Last Vital Signs Temp 98.2 F 11/21/21 14:00 Pulse 64 11/21/21 14:00 Resp 18 11/21/21 14:00 BP 103/65 11/21/21 14:00 Pulse Ox 97 11/21/21 14:00 O2 Del Method 11/21/21 06:00 Data NPU : 11/19/21 02:07 11/19/21 02:07 A&P Assessment and plan (1) Acute psychosis: Status: Resolved (2) Cannabis use disorder, moderate, dependence: Status: Acute (3) Insomnia: Status: Acute Qualifiers: Insomnia type: unspecified Qualified Code(s): G47.00 - Insomnia, unspecified (4) Schizoaffective disorder: Status: Acute (5) Opioid use disorder, severe, dependence: Status: Deleted (6) Opioid dependence on agonist therapy: Status: Acute Plan This is a 60-year-old white female with a long history of mental illness and some limited addiction history who presented to the emergency department 2 days after discharge with psychosis 1. Continue current medication. We will consider medication changes. 2. Continue every 15 minute checks for safety. 3. Encourage individual, group and milieu therapies. 4. Encourage sober living treatment after discharge at the highest level of care to which he is willing to commit. Involuntary Hold Information 96 Hour Hold: 96 Hour Involuntary Admission: No Attestations NPU Medical Necessity Statement*: Inpatient hospitalization is medically necessary and the clinically appropriate intervention at this time. We will monitor medication to make changes as indicated.Likely length of stay 1-3 days. Coding Level of Care Code Acute Political Science Research Assistant for [facility] Diagnoses Acute psychosis F23 Cannabis use disorder, moderate, dependence F12.20 Insomnia G47.00 Insomnia type: unspecified Schizoaffective disorder F25.9 Opioid use disorder, severe, dependence F11.20 Opioid dependence on agonist therapy F11.20
[2021-11-21 20:03] VITALS: BP 93/58; PULSE 63; RESP 16; TEMP 37; O2SAT 96
[2021-11-21] MEDS: zolpidem 5 mg Tablet 10 MG PO (23:07)
[2021-11-22 05:52] VITALS: BP 93/58; PULSE 63; RESP 16; TEMP 37; O2SAT 96
[2021-11-22 06:40] VITALS: BP 92/58; PULSE 54; RESP 16; TEMP 36.6; O2SAT 96
--- NOTE | 2021-11-22 08:43 | W.PM.NPUPNS ---
Subjective NPU Subjective: Patient presents today reporting that things are going a little better. She reports that she is excepting the fact that she needs to return to [facility] and that the only option is actually even available. She reports that she understands that his limitation exists and that if she wants something different she will need to work with her people at [facility] for something different. Patient reports he starting to feel little bit better we discussed the likelihood for discharge Wednesday morning. Mental Status Exam MSE Comments: This is an overweight white female in hospital scrubs with limited grooming and adequate eye contact. Absent dentition. No abnormal movements except for mild psychomotor retardation. Cooperative with exam in mild distress. Speech was more normal rate and decreased volume. Mood described as a little better, affect congruent. Thought process linear, thought content: patient denies suicidal or homicidal ideation, there were no delusions reported or noted, she denied any auditory or visual hallucinations. Attention and concentration were intact and memory appeared unreliable but none were formally tested. She?s alert and oriented times three. Insight and judgment appeared improving and impulse control appeared limited. Vitals/I&O/Wt Last Vital Signs Temp 98.6 F 11/21/21 20:03 Pulse 63 11/21/21 20:03 Resp 16 11/21/21 20:03 BP 93/58 11/21/21 20:03 Pulse Ox 96 11/21/21 20:03 O2 Del Method 11/21/21 20:03 Data NPU : 11/19/21 02:07 11/19/21 02:07 A&P Assessment and plan (1) Acute psychosis: Status: Resolved (2) Cannabis use disorder, moderate, dependence: Status: Acute (3) Insomnia: Status: Acute Qualifiers: Insomnia type: unspecified Qualified Code(s): G47.00 - Insomnia, unspecified (4) Schizoaffective disorder: Status: Acute (5) Opioid use disorder, severe, dependence: Status: Deleted (6) Opioid dependence on agonist therapy: Status: Acute Plan This is a 60-year-old white female with a long history of mental illness and some limited addiction history who presented to the emergency department 2 days after discharge with psychosis 1. Continue current medication. We will consider medication changes. 2. Continue every 15 minute checks for safety. 3. Encourage individual, group and milieu therapies. 4. Encourage sober living treatment after discharge at the highest level of care to which he is willing to commit. Involuntary Hold Information 96 Hour Hold: 96 Hour Involuntary Admission: No Attestations NPU Medical Necessity Statement*: Inpatient hospitalization is medically necessary and the clinically appropriate intervention at this time. We will monitor medication to make changes as indicated.Likely length of stay 1-2 days. Coding Level of Care Code Acute Donor Services Specialist for [facility] Diagnoses Acute psychosis F23 Cannabis use disorder, moderate, dependence F12.20 Insomnia G47.00 Insomnia type: unspecified Schizoaffective disorder F25.9 Opioid use disorder, severe, dependence F11.20 Opioid dependence on agonist therapy F11.20
[2021-11-22 09:10] VITALS: PULSE 79; RESP 16; O2SAT 94
[2021-11-22] MEDS: gabapentin 300 mg Capsule PO ×3 (09:41→20:39)
[2021-11-22] MEDS: ibuprofen 600 mg Tablet PO (09:41)
[2021-11-22] MEDS: divalproex ER 500 mg Tablet (24H) PO (09:41)
[2021-11-22] MEDS: sertraline 100 mg Tablet PO (09:41)
[2021-11-22] MEDS: ziprasidone hcl 40 mg Capsule 80 MG PO ×2 (09:41→17:23)
[2021-11-22] MEDS: ropinirole 1 mg Tablet PO ×3 (09:41→20:39)
[2021-11-22] MEDS: benztropine 1 mg Tablet PO ×3 (09:41→20:39)
[2021-11-22] MEDS: carbidopa-levodopa 25-100mg Tablet 1 EACH PO ×4 (09:41→20:39)
[2021-11-22] MEDS: diclofenac 1% Topical Gel 100 gm 4 APPLIC TOPICAL ×4 (09:42→20:40)
[2021-11-22] MEDS: pantoprazole DR 40 mg Tablet PO ×2 (09:42→17:23)
[2021-11-22] MEDS: OLANZapine 5 mg ODT PO (09:42)
[2021-11-22] MEDS: buprenorphine-naloxone 4-1 mg Film 2 EACH SUBLINGUAL ×3 (09:42→20:40)
[2021-11-22] MEDS: FUROsemide 20 mg Tablet PO (09:42)
--- NOTE | 2021-11-22 11:10 | PC.NURSE ---
PT REQUESTED IBUPROFEN FOR BACK PAIN AND SOMETHING FOR ANXIETY. ZYDIS WAS GIVEN FOR ANXIETY.
[2021-11-22 14:00] VITALS: BP 94/56; PULSE 79; RESP 15; TEMP 36.3; O2SAT 96
[2021-11-22] MEDS: hyDROXYzine 25 mg Capsule 50 MG PO (14:11)
[2021-11-22 20:08] VITALS: BP 100/67; PULSE 64; RESP 16; TEMP 36.9; O2SAT 97
[2021-11-23 06:00] VITALS: BP 108/56; PULSE 85; RESP 116; TEMP 36.8; O2SAT 98
--- NOTE | 2021-11-23 06:22 | W.PM.NPUPNS ---
Subjective NPU Subjective: Patient presents today reporting that she is going to focus on the positives of having a place to go and work with the treatment team in the morning to get back to [facility]. She reports that she is doing fine on her medication and denied any specific issues. Mental Status Exam MSE Comments: This is an overweight white female in hospital scrubs with limited grooming and adequate eye contact. Absent dentition. No abnormal movements except for mild psychomotor retardation. Cooperative with exam in mild distress. Speech was more normal rate and decreased volume. Mood described as okay, affect congruent. Thought process linear, thought content: patient denies suicidal or homicidal ideation, there were no delusions reported or noted, she denied any auditory or visual hallucinations. Attention and concentration were intact and memory appeared unreliable but none were formally tested. She?s alert and oriented times three. Insight and judgment appeared improving and impulse control appeared limited. Vitals/I&O/Wt Last Vital Signs Temp 98.4 F 11/22/21 20:08 Pulse 64 11/22/21 20:08 Resp 16 11/22/21 20:08 BP 100/67 11/22/21 20:08 Pulse Ox 97 11/22/21 20:08 O2 Del Method 11/22/21 20:08 11/22/21 11/22/21 11/23/21 14:59 22:59 06:59 Output Total 240 / 240 240 / 480 Balance -240 / -240 -240 / -480 Data NPU : 11/19/21 02:07 11/19/21 02:07 A&P Assessment and plan (1) Acute psychosis: Status: Resolved (2) Cannabis use disorder, moderate, dependence: Status: Acute (3) Insomnia: Status: Acute Qualifiers: Insomnia type: unspecified Qualified Code(s): G47.00 - Insomnia, unspecified (4) Schizoaffective disorder: Status: Acute (5) Opioid use disorder, severe, dependence: Status: Deleted (6) Opioid dependence on agonist therapy: Status: Acute Plan This is a 60-year-old white female with a long history of mental illness and some limited addiction history who presented to the emergency department 2 days after discharge with psychosis 1. Continue current medication. 2. Continue every 15 minute checks for safety. 3. Encourage individual, group and milieu therapies. 4. Encourage sober living treatment after discharge at the highest level of care to which he is willing to commit. 5. Plan for discharge in the morning. Involuntary Hold Information 96 Hour Hold: 96 Hour Involuntary Admission: No Attestations NPU Medical Necessity Statement*: Inpatient hospitalization is medically necessary and the clinically appropriate intervention at this time. We will monitor medication to make changes as indicated. Discharge in the morning. Coding Level of Care Code Acute Career Guidance Technician for [facility] Diagnoses Acute psychosis F23 Cannabis use disorder, moderate, dependence F12.20 Insomnia G47.00 Insomnia type: unspecified Schizoaffective disorder F25.9 Opioid use disorder, severe, dependence F11.20 Opioid dependence on agonist therapy F11.20
[2021-11-23 09:17] VITALS: PULSE 79; RESP 17; O2SAT 97
[2021-11-23] MEDS: sertraline 100 mg Tablet PO (09:25)
[2021-11-23] MEDS: ziprasidone hcl 40 mg Capsule 80 MG PO ×2 (09:25→17:18)
[2021-11-23] MEDS: OLANZapine 5 mg ODT PO (09:25)
[2021-11-23] MEDS: FUROsemide 20 mg Tablet PO (09:26)
[2021-11-23] MEDS: ropinirole 1 mg Tablet PO ×3 (09:26→19:39)
[2021-11-23] MEDS: gabapentin 300 mg Capsule PO ×3 (09:26→19:39)
[2021-11-23] MEDS: benztropine 1 mg Tablet PO ×3 (09:26→19:40)
[2021-11-23] MEDS: divalproex ER 500 mg Tablet (24H) PO (09:26)
[2021-11-23] MEDS: carbidopa-levodopa 25-100mg Tablet 1 EACH PO ×4 (09:26→19:40)
[2021-11-23] MEDS: pantoprazole DR 40 mg Tablet PO ×2 (09:26→17:18)
[2021-11-23] MEDS: diclofenac 1% Topical Gel 100 gm 4 APPLIC TOPICAL ×4 (09:27→20:00)
[2021-11-23] MEDS: buprenorphine-naloxone 4-1 mg Film 2 EACH SUBLINGUAL ×3 (09:27→19:39)
[2021-11-23 14:00] VITALS: RESP 18
[2021-11-23] MEDS: hyDROXYzine 25 mg Capsule 50 MG PO (19:39)
[2021-11-23 20:54] VITALS: BP 95/56; PULSE 72; RESP 18; TEMP 36.8; O2SAT 95
[2021-11-24 06:00] VITALS: BP 144/85; PULSE 78; RESP 17; TEMP 36.8; O2SAT 99
[2021-11-24] MEDS: hyDROXYzine 25 mg Capsule 50 MG PO ×2 (06:35→13:17)
[2021-11-24] MEDS: acetaminophen 325 mg Tablet 650 MG PO (07:27)
[2021-11-24] MEDS: divalproex ER 500 mg Tablet (24H) PO (08:14)
[2021-11-24] MEDS: buprenorphine-naloxone 4-1 mg Film 2 EACH SUBLINGUAL ×2 (08:14→14:14)
[2021-11-24] MEDS: ziprasidone hcl 40 mg Capsule 80 MG PO (08:15)
[2021-11-24] MEDS: gabapentin 300 mg Capsule PO ×2 (08:15→14:14)
[2021-11-24] MEDS: ropinirole 1 mg Tablet PO ×2 (08:15→14:14)
[2021-11-24] MEDS: carbidopa-levodopa 25-100mg Tablet 1 EACH PO ×2 (08:15→13:15)
[2021-11-24] MEDS: FUROsemide 20 mg Tablet PO (08:15)
[2021-11-24] MEDS: pantoprazole DR 40 mg Tablet PO (08:15)
[2021-11-24] MEDS: sertraline 100 mg Tablet PO (08:16)
[2021-11-24] MEDS: diclofenac 1% Topical Gel 100 gm 4 APPLIC TOPICAL ×2 (08:16→12:27)
[2021-11-24] MEDS: benztropine 1 mg Tablet PO ×2 (08:16→14:14)
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
--- NOTE | 2021-11-24 12:30 | W.CSC.PSA ---
[facility] Psychosocial Assessment Substance Use History Alcohol or Other Drug Used past 6 months Prior use? (lifetime) Route of Use Frequency (past 6 months) Duration (of use) Date of last use Alcohol Amphetamines (meth, ice, crank) Cocaine Heroin Opioid /Opiates (misuse or w/out prescription) Marijuana (cbd, dabs) Sedatives (Benzo, sleep meds) (misuse or w/out prescription) Hallucinogens Inhalants Over the Counter (Cough syrup, Diet) Nicotine (cigarettes, chew, vape) Other
[2021-11-24 12:58] VITALS: BP 144/85; PULSE 78; RESP 17; TEMP 36.8; O2SAT 99
--- NOTE | 2021-11-24 13:18 | PC.NURSE ---
PT CAME TO NURSES STATION MULTIPLE TIMES DURING THIS SHIFT REQUESTING MEDICATION FOR PAIN. THIS NURSE LET HER KNOW THE ONLY ORDER PLACED IS FOR TYLENOL AND IBUPROFEN. PT BECAME AGITATED AND REQUESTED MEDICATION FOR ANXIETY. VISTERIL WAS GIVEN.
--- NOTE | 2021-11-24 14:22 | DCPLANNER ---
IMM completed on 11/24/21 @ 2:02pm. Pt was given a copy of rights.
--- NOTE | 2021-11-24 17:37 | PC.NURSE ---
THIS NURSE WENT TO PT ROOM TO EXPLAIN THAT PT RIDE WAS HERE WAITING ON HER. THIS NURSE ASK PT TO COME TO NURSES STATION TO SIGN DISCHARGE PAPERWORK. PT REFUSED TO GET OUT OF BED. PT TOLD STAFF MULTIPLE TIMES THAT SHE WOULD ONLY SPEAK TO DR. DE LUNA OR JESSICA. STAFF EXPLAINED TO PT THAT DR. DE LUNA WAS NOT AVAILABLE BUT SHE DID SPEAK WITH DR. GARCIA EARLIER IN THE DAY ABOUT BEING DISCHARGED. COLLECTOR OF PORT CAME TO SPEAK TO PT AND TO EXPLAINED THAT HER RIDE WAS HERE AND TO DISCUSS THAT PT PREVIOUSLY AGREED TO GO BACK TO SALUTES. CHARGE NURSE CALLED SECURITY AND DIRECTOR OVER THE UNIT, AND PROVIDER WAS NOTIFIED. SECURITY ARRIVED TO THE UNIT AND SPOKE WITH PT. PT WAS ABLE TO BE VERBALLY DIRECTED OUT INTO THE LOBBY. ONCE IN THE LOBBY PT REFUSED TO TAKE OFF GREEN PT SCRUBS. PT ASK STAFF TO CALL 911 FOR HER. THE COMPLIANCE AIDE OFFICE WAS CONTACTED FOR THE PATIENT, THE PT DID NOT SPEAK WITH RIBBING MACHINE OPERATOR STAFF BUT HANDED THE PHONE BACK TO STAFF. PT WALKED OUT OF NPU BUT LATER RETURNED TO THE DOOR AND IS SITTING OUTSIDE OF THE NPU ENTRY WAY. SECURITY WAS NOTIFIED.
== END 2021-11-24 17:30 | disposition home or self-care (01) | DRG 885 ==
LOC: ER 03:48 → NP 03:49
PROVIDERS: Admitting Provider Psychiatry & Neurology Psychiatry; Emergency Provider Emergency Medicine; PCP Family Medicine; Visit Provider Psychiatry & Neurology Psychiatry
DX: F23 Brief psychotic disorder (principal); F25.9 Schizoaffective disorder, unspecified; F17.210 Nicotine dependence, cigarettes, uncomplicated; F17.290 Nicotine dependence, other tobacco product, uncomplicated; F12.20 Cannabis dependence, uncomplicated; G47.00 Insomnia, unspecified; Z79.899 Other long term (current) drug therapy
CPT/HCPCS: 80053; 80164; 80306; 80307; 81001; 85025; 96372; 97150; 97165; 99285; J0573; J1200; J3486

== ENCOUNTER 2021-11-24 23:57 | Inpatient (IN) | payer MEDICARE, MEDICAID, SELFPAY ==
[2021-11-25 00:04] VITALS: BMI 25.8
[2021-11-25 00:21] VITALS: BP 121/94; PULSE 87; RESP 16; TEMP 37.1; O2SAT 97
--- NOTE | 2021-11-25 00:32 | W.ED.PSYCHS ---
Documented by User: Umberto Mackenzie MD 11/25/21 05:17 HPI - Psych General: Chief Complaint: Psychiatric Symptoms Stated Complaint: CONFUSION Time Seen by Provider: 11/25/21 00:06 Source: patient and EMS Mode of arrival: EMS Limitations: no limitations History of Present Illness: 60-year-old female who is here with EMS. She is in a hotel and police showed up for possible trespassing patient here is extremely upset she is crying she denies being suicidal or homicidal. Patient here is crying in the room and is hysterical at times unable to get a full history from her she had questionable hallucinations at the hotel. Patient had been discharged from the psych unit yesterday. Associated symptoms: Deny depression Review of Systems Const: Denies: fever(s), chills, body aches or change in appetite Eyes: Denies: blurry vision or eye discomfort ENMT: Denies: throat pain or dental pain Card: Denies: chest pain Resp: Denies: dyspnea GI: Denies: abdominal pain, nausea, vomiting or diarrhea : Denies: dysuria Musc: Denies: neck pain or back pain Skin/Breast: Denies: rash Neuro: Denies: headache(s) Psych: Denies: depression Miguel/Lymph: Denies: easy bruising All/Imm: Denies: urticaria PFSH ED PFSH: Medical History Psychiatric care Social History Smoking and tobacco status: current every day smoker cigarettes Packs smoked per day: 0.40 Years cigarettes smoked: 23 and e-cigarettes E-Cigarette Details: vaporizer device and with nicotine E-cig/vape details: One refill/two months. Quit status (tobacco): not considering quitting Second hand smoke exposure: No Smoking risk assessment/counseling performed?: No Alcohol intake: former Year of sobriety/quit date alcohol: 1994 Desire information about alcohol rehabilitation?: No Counseling given: No Desire information about substance/drug rehabilitation?: No Counseling given: No Physical Exam Const: COMMON NORMALS: no acute distress, patient oriented x3 and healthy appearing HENMT: COMMON NORMALS: normocephalic and atraumatic HEAD & SCALP: normocephalic and atraumatic Eye: COMMON NORMALS: Equal, round and reactive pupils present and EOMs intact bilaterally PUPIL: Yes Equal, round and reactive pupils present Neck/C-Spine: COMMON NORMALS: full ROM and supple Chest: COMMONS NORMALS: normal inspection of the chest and normal palpation of entire chest wall Resp: COMMON NORMALS: normal respiratory effort, No retractions, No use of accessory muscles and clear to auscultation bilaterally AUSCULTATION: clear to auscultation bilaterally Cardio: COMMON NORMALS: regular rate, regular rhythm and No murmurs present (Cardio) RATE: regular rate RHYTHM: regular rhythm GI: COMMON NORMALS: Normal to inspection, nondistended, normoactive bowel sounds present, Soft to palpation, non-tender and no masses PALPATION: Yes Soft to palpation Extremity: COMMON NORMALS: normal to inspection and full ROM Neuro: COMMON NORMALS: patient oriented x3, moves all extremities and no focal motor deficits Psych: COMMON NORMALS: mental status grossly normal and cooperative MOOD & AFFECT: Yes elevated mood THOUGHT CONTENT: Yes Hallucination(s) present Skin: COMMON NORMALS: no rashes or lesions noted and no wounds GENERAL SKIN EXAM: no rashes or lesions noted Course Vital Signs: Vital signs: Vital Signs Temperature 98.8 F 11/28/21 14:00 Pulse Rate 74 11/29/21 06:00 Respiratory Rate 17 11/29/21 06:00 Blood Pressure 122/66 11/29/21 06:00 Pulse Oximetry 97 11/29/21 06:00 Oxygen Delivery Me thod 11/28/21 06:00 MDM - Psych Medical Decision Making Patient presents with hallucinations that are mild in nature she just been discharged from the psychiatric unit. I spoke to Dr. London who had spoke to patient patient has been discharged home and does not have anywhere to go ahead and went to [address] and then a hotel. He did speak to her and states that he would like to talk to the other psychiatrist this morning along with [facility] to try to set up a place for her to go, patient's care turned over to Dr. Cam. Lab Data : 11/25/21 00:48 11/25/21 00:48 Laboratory Results WBC 9.3 10^3/uL (4.0-10.0) 11/25/21 00:48 RBC 3.75 10^6/uL (4.1-5.3) L 11/25/21 00:48 Hgb 11.7 g/dL (11.5-15.3) 11/25/21 00:48 Hct 35.7 % (37.0-47.0) L 11/25/21 00:48 MCV 95.2 fl (81-99) 11/25/21 00:48 MCH 31.2 pg (28.0-34.0) 11/25/21 00:48 MCHC 32.8 g/dL (30.0-36.0) 11/25/21 00:48 RDW 12.4 % (12.1-15.1) 11/25/21 00:48 Plt Count 268 10^3/cmm (130-400) 11/25/21 00:48 MPV 11.5 fL (7.4-10.4) H 11/25/21 00:48 Neut % (Auto) 60.4 % 11/25/21 00:48 Lymph % (Auto) 26.3 % 11/25/21 00:48 [place] % (Auto) 12.2 % 11/25/21 00:48 Eos % (Auto) 0.0 % 11/25/21 00:48 Baso % (Auto) 0.9 % 11/25/21 00:48 Neut # (Auto) 5.64 10^3/uL (1.8-7.7) 11/25/21 00:48 Lymph # (Auto) 2.5 10^3/uL (0.8-4.8) 11/25/21 00:48 [place] # (Auto) 1.1 10^3/uL (0.2-0.9) H 11/25/21 00:48 Eos # (Auto) 0.0 10^3/uL (0.0-0.8) 11/25/21 00:48 Baso # (Auto) 0.1 10^3/uL (0.0-0.1) 11/25/21 00:48 Nucleated RBC % (auto) 0 % 11/25/21 00:48 Nucleated RBCs # 0.0 /100WBC 11/25/21 00:48 Sodium 135 mmol/L (136-145) L 11/25/21 00:48 Potassium 3.7 mmol/L (3.5-5.1) 11/25/21 00:48 Chloride 99 mmol/L (98-107) 11/25/21 00:48 Carbon Dioxide 24 mmol/L (22-29) 11/25/21 00:48 Anion Gap 15.7 (5-19) 11/25/21 00:48 BUN 15 mg/dL (6-20) 11/25/21 00:48 Creatinine 0.7 mg/dL (0.5-0.9) 11/25/21 00:48 GFR Calculation 85.9 mL/min (90-130) L 11/25/21 00:48 Glucose 99 mg/dL (65-115) 11/25/21 00:48 Calculated Osmolality 281 mOsm/kg (285-295) L 11/25/21 00:48 Calcium 9.0 mg/dL (8.5-10.5) 11/25/21 00:48 Total Bilirubin 0.3 mg/dL (0.15-1.2) 11/25/21 00:48 AST 14 U/L (0-32) 11/25/21 00:48 ALT 11 U/L (0-33) 11/25/21 00:48 Alkaline Phosphatase 94 U/L (35-105) 11/25/21 00:48 Total Protein 7.2 g/dL (6.6-8.7) 11/25/21 00:48 Albumin 4.0 g/dL (3.5-5.2) 11/25/21 00:48 Globulin 3.2 g/dL (1.3-4.6) 11/25/21 00:48 Salicylates < 0.3 mg/dL (3-10) L 11/25/21 00:48 Urine Opiates Screen Negative ng/mL (Negative) 11/25/21 00:48 Acetaminophen < 5.0 ug/mL (10-30) L 11/25/21 00:48 Ur Barbiturates Screen Negative ng/mL (Negative) 11/25/21 00:48 Ur Phencyclidine Scrn Negative ng/mL (Negative) 11/25/21 00:48 Ur Amphetamines Screen Negative ng/mL (Negative) 11/25/21 00:48 U Benzodiazepines Scrn Negative ng/mL (Negative) 11/25/21 00:48 Urine Cocaine Screen Negative ng/mL (Negative) 11/25/21 00:48 U Marijuana (THC) Screen Positive ng/mL (Negative) H 11/25/21 00:48 Ethyl Alcohol < 10 mg/dL (0-10) 11/25/21 00:48 Discharge Plan Discharge Patient Disposition: Admitted As Inpatient Admit Provider: Garo Armstrong Clinical Impression: Acute psychosis, Cannabis use disorder, moderate, dependence, Opioid dependence on agonist therapy, Schizoaffective disorder Condition: Stable Sign Out Sign Out Data: Patient Sign Out occurred on 11/25/21 at 06:00. Patient's care was discussed, and care was transferred from to Jamarcus Cam DO. Coding Level of Care Code ED Division Leader for Chg Fwd Exam Comprehensive Documented by User: Jamarcus Cam DO 11/29/21 06:34 HPI - Psych General: Chief Complaint: Psychiatric Symptoms Stated Complaint: CONFUSION Time Seen by Provider: 11/25/21 00:06 History of Present Illness: complaint: feels depressed Onset (ago): day(s) Duration: constant History of same: Yes Relieving factors: none Exacerbating factors: none PFSH ED PFSH: Medical History Psychiatric care Social History Smoking and tobacco status: current every day smoker cigarettes Packs smoked per day: 0.40 Years cigarettes smoked: 23 and e-cigarettes E-Cigarette Details: vaporizer device and with nicotine E-cig/vape details: One refill/two months. Quit status (tobacco): not considering quitting Second hand smoke exposure: No Smoking risk assessment/counseling performed?: No Alcohol intake: former Year of sobriety/quit date alcohol: 1994 Desire information about alcohol rehabilitation?: No Counseling given: No Desire information about substance/drug rehabilitation?: No Counseling given: No Course Vital Signs: Vital signs: Vital Signs Temperature 98.8 F 11/28/21 14:00 Pulse Rate 74 11/29/21 06:00 Respiratory Rate 17 11/29/21 06:00 Blood Pressure 122/66 11/29/21 06:00 Pulse Oximetry 97 11/29/21 06:00 Oxygen Delivery Me thod 11/28/21 06:00 MDM - Psych Medical Decision Making Patient presents with hallucinations that are mild in nature she just been discharged from the psychiatric unit. I spoke to Dr. London who had spoke to patient patient has been discharged home and does not have anywhere to go ahead and went to [address] and then a hotel. He did speak to her and states that he would like to talk to the other psychiatrist this morning along with [facility] to try to set up a place for her to go, patient's care turned over to Dr. Cam. Care assumed at change of shift patient remained in the emergency room after several hours they were able to make a bed for her on our MPU. They were familiar with [facility] just had her in the unit. Dr. Carrillo has accepted the patient orders written. Medical Records I reviewed the patient's medical records. Lab Data I reviewed the patient's lab results. : 11/25/21 00:48 11/25/21 00:48 Laboratory Results WBC 9.3 10^3/uL (4.0-10.0) 11/25/21 00:48 RBC 3.75 10^6/uL (4.1-5.3) L 11/25/21 00:48 Hgb 11.7 g/dL (11.5-15.3) 11/25/21 00:48 Hct 35.7 % (37.0-47.0) L 11/25/21 00:48 MCV 95.2 fl (81-99) 11/25/21 00:48 MCH 31.2 pg (28.0-34.0) 11/25/21 00:48 MCHC 32.8 g/dL (30.0-36.0) 11/25/21 00:48 RDW 12.4 % (12.1-15.1) 11/25/21 00:48 Plt Count 268 10^3/cmm (130-400) 11/25/21 00:48 MPV 11.5 fL (7.4-10.4) H 11/25/21 00:48 Neut % (Auto) 60.4 % 11/25/21 00:48 Lymph % (Auto) 26.3 % 11/25/21 00:48 [place] % (Auto) 12.2 % 11/25/21 00:48 Eos % (Auto) 0.0 % 11/25/21 00:48 Baso % (Auto) 0.9 % 11/25/21 00:48 Neut # (Auto) 5.64 10^3/uL (1.8-7.7) 11/25/21 00:48 Lymph # (Auto) 2.5 10^3/uL (0.8-4.8) 11/25/21 00:48 [place] # (Auto) 1.1 10^3/uL (0.2-0.9) H 11/25/21 00:48 Eos # (Auto) 0.0 10^3/uL (0.0-0.8) 11/25/21 00:48 Baso # (Auto) 0.1 10^3/uL (0.0-0.1) 11/25/21 00:48 Nucleated RBC % (auto) 0 % 11/25/21 00:48 Nucleated RBCs # 0.0 /100WBC 11/25/21 00:48 Sodium 135 mmol/L (136-145) L 11/25/21 00:48 Potassium 3.7 mmol/L (3.5-5.1) 11/25/21 00:48 Chloride 99 mmol/L (98-107) 11/25/21 00:48 Carbon Dioxide 24 mmol/L (22-29) 11/25/21 00:48 Anion Gap 15.7 (5-19) 11/25/21 00:48 BUN 15 mg/dL (6-20) 11/25/21 00:48 Creatinine 0.7 mg/dL (0.5-0.9) 11/25/21 00:48 GFR Calculation 85.9 mL/min (90-130) L 11/25/21 00:48 Glucose 99 mg/dL (65-115) 11/25/21 00:48 Calculated Osmolality 281 mOsm/kg (285-295) L 11/25/21 00:48 Calcium 9.0 mg/dL (8.5-10.5) 11/25/21 00:48 Total Bilirubin 0.3 mg/dL (0.15-1.2) 11/25/21 00:48 AST 14 U/L (0-32) 11/25/21 00:48 ALT 11 U/L (0-33) 11/25/21 00:48 Alkaline Phosphatase 94 U/L (35-105) 11/25/21 00:48 Total Protein 7.2 g/dL (6.6-8.7) 11/25/21 00:48 Albumin 4.0 g/dL (3.5-5.2) 11/25/21 00:48 Globulin 3.2 g/dL (1.3-4.6) 11/25/21 00:48 Salicylates < 0.3 mg/dL (3-10) L 11/25/21 00:48 Urine Opiates Screen Negative ng/mL (Negative) 11/25/21 00:48 Acetaminophen < 5.0 ug/mL (10-30) L 11/25/21 00:48 Ur Barbiturates Screen Negative ng/mL (Negative) 11/25/21 00:48 Ur Phencyclidine Scrn Negative ng/mL (Negative) 11/25/21 00:48 Ur Amphetamines Screen Negative ng/mL (Negative) 11/25/21 00:48 U Benzodiazepines Scrn Negative ng/mL (Negative) 11/25/21 00:48 Urine Cocaine Screen Negative ng/mL (Negative) 11/25/21 00:48 U Marijuana (THC) Screen Positive ng/mL (Negative) H 11/25/21 00:48 Ethyl Alcohol < 10 mg/dL (0-10) 11/25/21 00:48 Discharge Plan Discharge Patient Disposition: Admitted As Inpatient Admit Provider: Garo Armstrong Clinical Impression: Acute psychosis, Cannabis use disorder, moderate, dependence, Opioid dependence on agonist therapy, Schizoaffective disorder Condition: Stable Sign Out Sign Out Data: Patient Sign Out occurred on 11/25/21 at 06:00. Patient's care was discussed, and care was transferred from to Jamarcus Cam DO. Coding Level of Care Code ED Division Leader for Edmundo Fwerwin Exam Comprehensive
[2021-11-25 00:54] LABS: Basophils # 0.1 10^3/uL (0.0-0.1); Basophils % 0.9 %; Hematocrit 35.7 % (37.0-47.0); Hemoglobin 11.7 g/dL (11.5-15.3); Lymphocytes # 2.5 10^3/uL (0.8-4.8); Lymphocytes % 26.3 %; Mean Corpuscular HGB Conc 32.8 g/dL (30.0-36.0); Mean Corpuscular Hemoglobin 31.2 pg (28.0-34.0); Mean Corpuscular Volume 95.2 fl (81-99); Mean Platelet Volume 11.5 fL (7.4-10.4); Monocytes # 1.1 10^3/uL (0.2-0.9); Monocytes % 12.2 %; Neutrophils # 5.64 10^3/uL (1.8-7.7); Neutrophils % 60.4 %; Nucleated Red Blood Cells % 0 %; Platelet Count 268 10^3/cmm (130-400); Red Blood Count 3.75 10^6/uL (4.1-5.3); Red Cell Distribution Width 12.4 % (12.1-15.1); White Blood Count 9.3 10^3/uL (4.0-10.0)
[2021-11-25 01:17] LABS: Alanine Aminotransferase 11 U/L (0-33); Alkaline Phosphatase 94 U/L (35-105); Amphetamines Screen Urine Negative (Negative); Aspartate Amino Transferase 14 U/L (0-32); Barbiturates Screen Urine Negative (Negative); Benzodiazepines Screen Urine Negative (Negative); Blood Urea Nitrogen 15 mg/dL (6-20); Carbon Dioxide 24 mmol/L (22-29); Chloride 99 mmol/L (98-107); Cocaine Screen Urine Negative (Negative); Globulin 3.2 g/dL (1.3-4.6); Glomerular Filtration Rate 85.9 mL/min (90-130); Glucose 99 mg/dL (65-115); Opiate Screen Urine Negative (Negative); Osmolality Calculated 281 mOsm/kg (285-295); PCP Screen Urine Negative (Negative); Sodium 135 mmol/L (136-145); THC Screen Urine Positive (Negative); Total Bilirubin 0.3 mg/dL (0.15-1.2); Total Protein 7.2 g/dL (6.6-8.7)
[2021-11-25 01:18] LABS: Acetaminophen < 5.0 ug/mL (10-30); Alcohol Level < 10 mg/dL (0-10); Anion Gap 15.7 (5-19); Salicylate < 0.3 mg/dL (3-10)
[2021-11-25 01:19] LABS: Potassium 3.7 mmol/L (3.5-5.1)
--- NOTE | 2021-11-25 02:07 | PC.NURSE ---
Pt sitting on side of bed. Requested ice chips, which were provided. Talking about the toilet is on fire and is going to blow up. Requested us not flush the toilet so it won't blow up.
[2021-11-25] MEDS: ziprasidone 20 mg/mL SDV IM (02:21)
[2021-11-25] MEDS: LORazepam 2 mg Tablet PO (02:25)
--- NOTE | 2021-11-25 02:27 | PC.NURSE ---
Pt pacing with increased hallucinations. Offered something for her to rest, md notified and pt took meds.
[2021-11-25 06:09] VITALS: BP 138/84; PULSE 78; RESP 16; O2SAT 95
--- NOTE | 2021-11-25 06:13 | PC.NURSE ---
Pt resting quietly at this time. Woke up for vitals. Covered with blanket.
--- NOTE | 2021-11-25 07:22 | PC.NURSE ---
PT IS RESTING QUIETLY WITH EYES CLOSED SUPINE IN CHAIR. PT HAS GOOD CHEST RISE AND FALL.
--- NOTE | 2021-11-25 07:49 | PC.PHAR ---
-medications entered are medications the pharmacy has filled recently and what was on previous entered med list-notes are made in the pharmacy comments with last fill dates and d/s
--- NOTE | 2021-11-25 08:50 | PC.NURSE ---
PT PROVIDED WITH ICE WATER PER PT REQUEST. PT HAS IRRATIONAL CONCERNS ABOUT TOILET EXPLODING. VERBAL DEESCALATION ATTEMPTED.
--- NOTE | 2021-11-25 10:02 | PC.NURSE ---
WHILE AT DOORWAY PT IS RESTING QUIETLY WITH EYES CLOSED IN CHAIR THAT WAS PROVIDED.
--- NOTE | 2021-11-25 13:09 | PC.NURSE ---
WHILE AT DOORWAY PT IS IN NAD RESTING IN CHAIR IN ROOM. PT DOES NOT VERBALIZE ANY NEEDS.
--- NOTE | 2021-11-25 15:53 | PC.NURSE ---
REPORT GIVEN TO STACI PARIS.
[2021-11-25 16:54] VITALS: PULSE 85; RESP 16; O2SAT 97
[2021-11-25 17:00] VITALS: BP 133/79; PULSE 78; RESP 18; TEMP 36.7; O2SAT 97
--- NOTE | 2021-11-25 17:07 | P.NPUDS_ITS ---
Reason for Visit Reason for Visit: CONFUSION Involuntary Hold Information 96 Hour Hold: 96 Hour Involuntary Admission: No Discharge Data Studies Completed and Pending: Laboratory Results WBC 9.3 10^3/uL (4.0- 10.0) 11/25/21 00:48 RBC 3.75 10^6/uL (4.1 -5.3) L 11/25/21 00:48 Hgb 11.7 g/dL (11.5-1 5.3) 11/25/21 00:48 Hct 35.7 % (37.0-47.0 ) L 11/25/21 00:48 MCV 95.2 fl (81-99) 11/25/21 00:48 MCH 31.2 pg (28.0-34. 0) 11/25/21 00:48 MCHC 32.8 g/dL (30.0-3 6.0) 11/25/21 00:48 RDW 12.4 % (12.1-15.1 ) 11/25/21 00:48 Plt Count 268 10^3/cmm (130 -400) 11/25/21 00:48 MPV 11.5 fL (7.4-10.4 ) H 11/25/21 00:48 Neut % (Auto) 60.4 % 11/25/21 00:48 Lymph % (Auto) 26.3 % 11/25/21 00:48 [place] % (Auto) 12.2 % 11/25/21 00:48 Eos % (Auto) 0.0 % 11/25/21 00:48 Baso % (Auto) 0.9 % 11/25/21 00:48 Neut # (Auto) 5.64 10^3/uL (1.8 -7.7) 11/25/21 00:48 Lymph # (Auto) 2.5 10^3/uL (0.8- 4.8) 11/25/21 00:48 [place] # (Auto) 1.1 10^3/uL (0.2- 0.9) H 11/25/21 00:48 Eos # (Auto) 0.0 10^3/uL (0.0- 0.8) 11/25/21 00:48 Baso # (Auto) 0.1 10^3/uL (0.0- 0.1) 11/25/21 00:48 Nucleated RBC % (a uto) 0 % 11/25/21 00:48 Nucleated RBCs # 0.0 /100WBC 11/25/21 00:48 Sodium 135 mmol/L (136-1 45) L 11/25/21 00:48 Potassium 3.7 mmol/L (3.5-5 .1) 11/25/21 00:48 Chloride 99 mmol/L (98-107 ) 11/25/21 00:48 Carbon Dioxide 24 mmol/L (22-29) 11/25/21 00:48 Anion Gap 15.7 (5-19) 11/25/21 00:48 BUN 15 mg/dL (6-20) 11/25/21 00:48 Creatinine 0.7 mg/dL (0.5-0. 9) 11/25/21 00:48 GFR Calculation 85.9 mL/min (90-1 30) L 11/25/21 00:48 Glucose 99 mg/dL (65-115) 11/25/21 00:48 Calculated Osmolal ity 281 mOsm/kg (285- 295) L 11/25/21 00:48 Calcium 9.0 mg/dL (8.5-10 .5) 11/25/21 00:48 Total Bilirubin 0.3 mg/dL (0.15-1 .2) 11/25/21 00:48 AST 14 U/L (0-32) 11/25/21 00:48 ALT 11 U/L (0-33) 11/25/21 00:48 Alkaline Phosphata se 94 U/L (35-105) 11/25/21 00:48 Total Protein 7.2 g/dL (6.6-8.7 ) 11/25/21 00:48 Albumin 4.0 g/dL (3.5-5.2 ) 11/25/21 00:48 Globulin 3.2 g/dL (1.3-4.6 ) 11/25/21 00:48 Salicylates < 0.3 mg/dL (3-10 ) L 11/25/21 00:48 Urine Opiates Scre en Negative ng/mL (N egative) 11/25/21 00:48 Acetaminophen < 5.0 ug/mL (10-3 0) L 11/25/21 00:48 Ur Barbiturates Sc reen Negative ng/mL (N egative) 11/25/21 00:48 Ur Phencyclidine S crn Negative ng/mL (N egative) 11/25/21 00:48 Ur Amphetamines Sc reen Negative ng/mL (N egative) 11/25/21 00:48 U Benzodiazepines Scrn Negative ng/mL (N egative) 11/25/21 00:48 Urine Cocaine Scre en Negative ng/mL (N egative) 11/25/21 00:48 U Marijuana (THC) Screen Positive ng/mL (N egative) H 11/25/21 00:48 Ethyl Alcohol < 10 mg/dL (0-10) 11/25/21 00:48 Vitals: Last Vital Signs Temp 98.8 F 11/25/21 00:21 Pulse 85 11/25/21 16:54 Resp 16 11/25/21 16:54 BP 138/84 11/25/21 06:09 Pulse Ox 97 11/25/21 16:54 O2 Del Method 11/25/21 06:09 Discharge Plan Discharge Patient Disposition: Home Condition: Stable Prescriptions: No Action albuterol sulfate 90 mcg/actuation HFA aerosol inhaler 2 puff inhalation Q6H PRN (Reason: shortness of breath or wheezing) Qty: 8.5 2RF divalproex 500 mg tablet extended release 24 hr 500 mg PO DAILY Qty: 30 2RF furosemide 20 mg tablet 20 mg PO DAILY Qty: 30 2RF gabapentin 300 mg capsule 300 mg PO TID Qty: 90 2RF omeprazole 20 mg tablet,delayed release (DR/EC) 20 mg PO BID Qty: 60 0RF ropinirole 1 mg tablet 1 mg PO TID Qty: 90 2RF sertraline 100 mg tablet 100 mg PO DAILY Qty: 30 2RF tizanidine 4 mg tablet 4 mg PO BID PRN (Reason: muscle spasticity) Qty: 60 2RF ziprasidone HCl 80 mg capsule 80 mg PO BID Qty: 60 2RF Rx Instructions: give with food (meal/snack) zolpidem 10 mg tablet 10 mg PO DAILY Qty: 30 2RF benztropine 1 mg tablet 1 mg PO TID Qty: 90 2RF buprenorphine-naloxone [Suboxone] 8-2 mg film 1 film sublingual TID Qty: 90 0RF diclofenac sodium [Arthritis Pain (diclofenac)] 1 % gel 4 g topical QID Qty: 100 2RF Rx Instructions: apply to single knee, ankle, foot; for foot includes sole/toes/top of foot diclofenac sodium 100 mg tablet extended release 24 hr 100 mg PO DAILY Qty: 90 1RF carbidopa-levodopa 25-100 mg tablet 1 tab PO QID Qty: 120 2RF diphenhydramine HCl [Benadryl Allergy] 25 mg Tablet 25 mg PO TID PRN (Reason: Allergy Symptoms) ibuprofen 200 mg Tablet 200 - 800 mg PO Q6H PRN (Reason: Pain) potassium gluconate 595 mg (99 mg) Tablet 595 mg PO DAILY Referrals: Negrito Christy DO [Primary Care Provider] - Patient Instructions: Opioid Safety Coding Level of Care Code Acute [facility] note
--- NOTE | 2021-11-25 18:30 | PC.NURSE ---
Pt refused 80mg of Geodon PO, Pt was requesting Xanax which she doesn't have orders for.
[2021-11-25] MEDS: hyDROXYzine 25 mg Capsule 50 MG PO (18:40)
[2021-11-25] MEDS: OLANZapine 5 mg ODT PO (18:40)
[2021-11-25] MEDS: buprenorphine-naloxone 4-1 mg Film 2 EACH SUBLINGUAL (21:04)
[2021-11-25] MEDS: ropinirole 1 mg Tablet PO (21:04)
[2021-11-25] MEDS: carbidopa-levodopa 25-100mg Tablet 1 EACH PO (21:04)
[2021-11-25] MEDS: zolpidem 5 mg Tablet 10 MG PO (21:05)
[2021-11-25] MEDS: gabapentin 300 mg Capsule PO (21:05)
[2021-11-25] MEDS: benztropine 1 mg Tablet PO (21:05)
[2021-11-25 21:45] VITALS: BP 106/73; PULSE 110; RESP 18; TEMP 37.2; O2SAT 96
[2021-11-26 06:00] VITALS: RESP 16
[2021-11-26] MEDS: FUROsemide 20 mg Tablet PO (08:17)
[2021-11-26] MEDS: buprenorphine-naloxone 4-1 mg Film 2 EACH SUBLINGUAL ×3 (08:17→20:58)
[2021-11-26] MEDS: carbidopa-levodopa 25-100mg Tablet 1 EACH PO ×4 (08:18→20:59)
[2021-11-26] MEDS: pantoprazole DR 40 mg Tablet PO (08:18)
[2021-11-26] MEDS: sertraline 100 mg Tablet PO (08:18)
[2021-11-26] MEDS: ropinirole 1 mg Tablet PO ×3 (08:18→20:59)
[2021-11-26] MEDS: gabapentin 300 mg Capsule PO ×3 (08:18→20:59)
[2021-11-26] MEDS: ziprasidone hcl 40 mg Capsule 80 MG PO ×2 (08:19→16:58)
[2021-11-26] MEDS: benztropine 1 mg Tablet PO ×3 (08:19→20:59)
[2021-11-26] MEDS: divalproex ER 500 mg Tablet (24H) PO (08:21)
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
--- NOTE | 2021-11-26 08:31 | PC.NURSE ---
shift assessment, pt denies all during assessment, poor hygiene noted, pt c/o being backed up and reports last bowel movement was About 4 days ago requesting laxative, will relay info on to physician
[2021-11-26] MEDS: diclofenac 1% Topical Gel 100 gm 4 APPLIC TOPICAL ×3 (11:16→20:58)
[2021-11-26] MEDS: hyDROXYzine 25 mg Capsule 50 MG PO ×2 (13:32→18:58)
[2021-11-26 14:00] VITALS: BP 97/62; PULSE 93; RESP 20; TEMP 36.9; O2SAT 91
[2021-11-26] MEDS: blistex lip oint 7 gm Tube 1 APPLIC TOPICAL ×2 (15:01→21:05)
[2021-11-26] MEDS: magnesium hydroxide 30 mL UDC PO (19:00)
[2021-11-26] MEDS: zolpidem 5 mg Tablet 10 MG PO (21:00)
[2021-11-26 21:06] VITALS: BP 116/75; PULSE 79; RESP 17; TEMP 37; O2SAT 96
[2021-11-26] MEDS: haloperidol 5 mg Tablet PO (21:13)
[2021-11-26] MEDS: docusate sodium 100 mg Capsule PO (21:26)
[2021-11-27 06:00] VITALS: BP 112/73; PULSE 78; RESP 14; TEMP 36.8; O2SAT 96
[2021-11-27] MEDS: sertraline 100 mg Tablet PO (08:52)
[2021-11-27] MEDS: polyethylene glycol 3350 Pkt 17 gm PO ×2 (08:52→14:37)
[2021-11-27] MEDS: carbidopa-levodopa 25-100mg Tablet 1 EACH PO ×4 (08:53→21:30)
[2021-11-27] MEDS: gabapentin 300 mg Capsule PO ×3 (08:53→21:27)
[2021-11-27] MEDS: pantoprazole DR 40 mg Tablet PO (08:53)
[2021-11-27] MEDS: ziprasidone hcl 40 mg Capsule 80 MG PO ×2 (08:53→17:23)
[2021-11-27] MEDS: FUROsemide 20 mg Tablet PO (08:53)
[2021-11-27] MEDS: acetaminophen 325 mg Tablet 650 MG PO (08:54)
[2021-11-27] MEDS: benztropine 1 mg Tablet PO ×4 (08:54→21:30)
[2021-11-27] MEDS: diclofenac 1% Topical Gel 100 gm 4 APPLIC TOPICAL ×4 (08:55→21:30)
[2021-11-27] MEDS: ropinirole 1 mg Tablet PO ×3 (08:55→21:27)
[2021-11-27] MEDS: buprenorphine-naloxone 4-1 mg Film 2 EACH SUBLINGUAL ×3 (08:55→21:27)
[2021-11-27] MEDS: divalproex ER 500 mg Tablet (24H) PO (08:55)
[2021-11-27] MEDS: haloperidol 5 mg Tablet PO ×3 (09:02→21:34)
--- NOTE | 2021-11-27 10:28 | PC.NURSE ---
IN BED AROUSES TO VOICE. STATES SHE IS ANXIOUS AND NEEDS HER AM MEDS. REEASSURED P0T SHE WOULD GET HER MEDS SHORTLY. PT REPORTS SHE HAS NOT HAD A BM IN 4 DAYS. MIRALAX 17 MG WAS ORDERED TIMES ONE DOSE NOW. PT DENIES SI/HI AND AVH AT THIS TIME. PT STATES SHE IS HAVING PAIN 8/10 IN HER LOWER BACK BUT WISHES TO WAIT FOR HER SUBOXONE. PT STATES HER SUBOXONE HELPS MORE THAN ANYTHING. ALL QUESTIONS ANSWERED AND SUPPORT WAS VOICED.
[2021-11-27] MEDS: OLANZapine 5 mg ODT PO (13:00)
[2021-11-27 14:00] VITALS: BP 102/61; PULSE 81; RESP 17; TEMP 37.2; O2SAT 97
[2021-11-27] MEDS: tizanidine 4 mg Tablet PO (14:31)
--- NOTE | 2021-11-27 17:40 | W.PM.NPUPNS ---
Subjective NPU Subjective: Patient is a 60-year-old white female with schizoaffective disorder admitted with disorganized behavior and auditory hallucinations. The patient continued to isolate on the unit. She appeared to have more significant mood fluctuations particularly later in the afternoon. Patient reports a history of manic symptoms in the past with periods of irritability. She reported continued lack of motivation. She reported infrequent thoughts of hurting herself. She had reported no side effects from her medication. Mental Status Exam MSE Comments: This is an overweight white female in hospital scrubs with limited grooming and adequate eye contact. Absent dentition. No abnormal movements except for mild psychomotor retardation. Cooperative with exam in mild distress. Speech was decreased in rate and decreased volume. Mood described as down, affect was tearful. She endorsed hopelessness. Thought process linear, and superficial thought content: patient denies suicidal or homicidal ideation, there were no delusions reported or noted, she appeared to be responding to internal stimuli. Attention and concentration were intact and memory appeared unreliable but none were formally tested. She?s alert and oriented times three. Insight and judgment appeared feeble and impulse control appeared limited. Vitals/I&O/Wt Last Vital Signs Temp 98.9 F 11/27/21 14:00 Pulse 81 11/27/21 14:00 Resp 17 11/27/21 14:00 BP 102/61 11/27/21 14:00 Pulse Ox 97 11/27/21 14:00 O2 Del Method 11/27/21 06:00 Data NPU : 11/25/21 00:48 11/25/21 00:48 A&P Assessment and plan (1) Acute psychosis: Status: Resolved (2) Cannabis use disorder, moderate, dependence: Status: Acute (3) Insomnia: Status: Acute Qualifiers: Insomnia type: unspecified Qualified Code(s): G47.00 - Insomnia, unspecified (4) Schizoaffective disorder: Status: Acute (5) Opioid dependence on agonist therapy: Status: Acute Plan This is a 60-year-old white female with a long history of mental illness and some limited addiction history who presented to the emergency department 2 days after discharge with psychosis 1. Restart her medications, will reevaluate for medication changes to target psychosis, and mood symptoms. 2. Continue every 15 minute checks for safety. 3. Encourage individual, group and milieu therapies. 4. Encourage sober living treatment after discharge at the highest level of care to which he is willing to commit. 5. Consider guardianship, evaluate with OT DANIELLA examination. Involuntary Hold Information 96 Hour Hold: 96 Hour Involuntary Admission: No Attestations NPU Medical Necessity Statement*: Inpatient hospitalization is medically necessary and the clinically appropriate intervention at this time. We will monitor medications and make changes as indicated. Patient will be in the hospital with likely length of stay is 5-10 days. Coding Level of Care Code Established Pt Acute Deployment Specialist for Edmundo Larson Patient Type Established History Problem Focused Exam Problem Focused Medical Decision Making Straight Forward Diagnoses Acute psychosis F23 Cannabis use disorder, moderate, dependence F12.20 Insomnia G47.00 Insomnia type: unspecified Schizoaffective disorder F25.9 Opioid dependence on agonist therapy F11.20
[2021-11-27] MEDS: hyDROXYzine 25 mg Capsule 50 MG PO (18:11)
[2021-11-27] MEDS: zolpidem 5 mg Tablet 10 MG PO (21:28)
[2021-11-27 21:53] VITALS: BP 100/65; PULSE 73; RESP 16; TEMP 36.8; O2SAT 96
[2021-11-28 06:00] VITALS: BP 109/73; PULSE 74; RESP 17; TEMP 37; O2SAT 97
[2021-11-28] MEDS: magnesium hydroxide 30 mL UDC PO (06:08)
[2021-11-28] MEDS: ziprasidone hcl 40 mg Capsule 80 MG PO ×2 (09:32→17:39)
[2021-11-28] MEDS: ropinirole 1 mg Tablet PO ×3 (09:32→20:05)
[2021-11-28] MEDS: gabapentin 300 mg Capsule PO ×3 (09:32→20:04)
[2021-11-28] MEDS: haloperidol 5 mg Tablet PO ×2 (09:32→18:05)
[2021-11-28] MEDS: sertraline 100 mg Tablet PO (09:32)
[2021-11-28] MEDS: FUROsemide 20 mg Tablet PO (09:33)
[2021-11-28] MEDS: carbidopa-levodopa 25-100mg Tablet 1 EACH PO ×4 (09:33→20:04)
[2021-11-28] MEDS: buprenorphine-naloxone 4-1 mg Film 2 EACH SUBLINGUAL ×3 (09:33→20:04)
[2021-11-28] MEDS: pantoprazole DR 40 mg Tablet PO (09:34)
[2021-11-28] MEDS: diclofenac 1% Topical Gel 100 gm 4 APPLIC TOPICAL ×4 (09:34→20:58)
[2021-11-28] MEDS: benztropine 1 mg Tablet PO ×3 (09:34→20:04)
[2021-11-28] MEDS: divalproex ER 500 mg Tablet (24H) PO (09:41)
[2021-11-28] MEDS: tizanidine 4 mg Tablet PO (12:53)
[2021-11-28] MEDS: OLANZapine 5 mg ODT PO ×2 (12:53→20:11)
[2021-11-28 14:00] VITALS: BP 88/59; PULSE 68; RESP 17; TEMP 37.1; O2SAT 96
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
[2021-11-28] MEDS: zolpidem 5 mg Tablet 10 MG PO (20:04)
[2021-11-28 20:17] VITALS: BP 122/66; PULSE 87; RESP 16; O2SAT 96
[2021-11-28] MEDS: ibuprofen 600 mg Tablet PO (21:12)
[2021-11-28] MEDS: docusate sodium 100 mg Capsule PO (22:40)
[2021-11-29 06:00] VITALS: BP 122/66; PULSE 74; RESP 17; O2SAT 97
[2021-11-29] MEDS: carbidopa-levodopa 25-100mg Tablet 1 EACH PO ×4 (09:01→20:35)
[2021-11-29] MEDS: FUROsemide 20 mg Tablet PO (09:02)
[2021-11-29] MEDS: buprenorphine-naloxone 4-1 mg Film 2 EACH SUBLINGUAL ×3 (09:02→21:45)
[2021-11-29] MEDS: gabapentin 300 mg Capsule PO ×3 (09:03→20:36)
[2021-11-29] MEDS: ropinirole 1 mg Tablet PO ×3 (09:05→20:35)
[2021-11-29] MEDS: benztropine 1 mg Tablet PO ×3 (09:05→20:35)
[2021-11-29] MEDS: pantoprazole DR 40 mg Tablet PO (09:06)
[2021-11-29] MEDS: sertraline 50 mg Tablet 75 MG PO (09:06)
[2021-11-29] MEDS: ziprasidone hcl 40 mg Capsule 80 MG PO ×2 (09:07→17:50)
[2021-11-29] MEDS: divalproex ER 250 mg Tablet (24H) 750 MG PO (09:12)
[2021-11-29] MEDS: haloperidol 5 mg Tablet PO ×2 (09:13→14:57)
[2021-11-29] MEDS: diclofenac 1% Topical Gel 100 gm 4 APPLIC TOPICAL ×4 (12:29→21:30)
[2021-11-29] MEDS: OLANZapine 5 mg ODT PO ×2 (13:09→17:54)
[2021-11-29 13:40] VITALS: BP 102/63; PULSE 75; RESP 17; TEMP 36.7
--- NOTE | 2021-11-29 15:36 | W.PM.NPUPNS ---
Subjective NPU Subjective: Patient is a 60-year-old white female with schizoaffective disorder admitted with disorganized behavior and auditory hallucinations. Patient continues to be compliant on the milieu. She reports that the voices have been present intermittently. She reports periods of depressed mood and periods of hopelessness. She continues to struggle at times with management of activities of daily living. The patient reports chronic problems with concentration. She had endorsed being placed on Depakote for treatment of absence seizure's. She reports a history of sleep continuity disruption. She did not endorse any manic symptoms or hypomanic symptoms. She had reported having increased irritability later in the afternoon. Notes the patient has struggled with being in groups. She continued to report that she did not wish to return to her previous senior care, [facility]. Mental Status Exam MSE Comments: This is an overweight white female in hospital scrubs with limited grooming and adequate eye contact. Absent dentition. No abnormal movements except for mild psychomotor retardation with an odd wide based gait. She was cooperative with exam in mild distress. Speech was normal in rate and volume. Mood described as frustrated, affect was labile and tearful at times. She endorsed some hopelessness. Thought process linear, and superficial. thought content showed no evidence of suicidal or homicidal ideation. She continued to have paranoia and some ideas of reference. Attention and concentration were intact and memory appeared unreliable but none were formally tested. She?s alert and oriented times three. Insight and judgment appeared feeble and impulse control appeared limited. Vitals/I&O/Wt Last Vital Signs Temp 98.1 F 11/29/21 13:40 Pulse 75 11/29/21 13:40 Resp 17 11/29/21 13:40 BP 102/63 11/29/21 13:40 Pulse Ox 97 11/29/21 06:00 O2 Del Method 11/29/21 13:40 Data NPU : 11/25/21 00:48 11/25/21 00:48 A&P Assessment and plan (1) Schizoaffective disorder: Status: Acute (2) Acute psychosis: Status: Resolved (3) Cannabis use disorder, moderate, dependence: Status: Acute (4) Insomnia: Status: Acute Qualifiers: Insomnia type: unspecified Qualified Code(s): G47.00 - Insomnia, unspecified (5) Opioid dependence on agonist therapy: Status: Acute Plan This is a 60-year-old white female with a long history of mental illness and some limited addiction history who presented to the emergency department 2 days after discharge with psychosis 1. Continue Geodon 80mg bid, increase Depakote 1000mg ER in am. Continue Carbadopa/levodopa as prescribed. Decrease zoloft to 50mg in am (concern regarding increased mood fluctuations with SSRI use with patient with schizoaffective disorder bipolar type. 2. Continue every 15 minute checks for safety. 3. Encourage individual, group and milieu therapies. 4. Encourage sober living treatment after discharge at the highest level of care to which he is willing to commit. 5. Consider guardianship, evaluate with OT DANIELLA examination. Consider Latuda, Zyprexa? Involuntary Hold Information 96 Hour Hold: 96 Hour Involuntary Admission: No Attestations NPU Medical Necessity Statement*: Inpatient hospitalization is medically necessary and the clinically appropriate intervention at this time. We will monitor medications and make changes as indicated. Patient will be in the hospital with likely length of stay is 5-10 days. Coding Level of Care Code Established Pt Acute Locomotive Engineer for Edmundo Larson Patient Type Established History Problem Focused Exam Problem Focused Medical Decision Making Straight Forward Diagnoses Schizoaffective disorder F25.9 Acute psychosis F23 Cannabis use disorder, moderate, dependence F12.20 Insomnia G47.00 Insomnia type: unspecified Opioid dependence on agonist therapy F11.20
[2021-11-29 19:58] VITALS: BP 121/69; PULSE 76; RESP 18; TEMP 36.9; O2SAT 97
[2021-11-29] MEDS: docusate sodium 100 mg Capsule PO (20:36)
[2021-11-29] MEDS: zolpidem 5 mg Tablet 10 MG PO (21:46)
[2021-11-30 06:00] VITALS: BP 116/74; PULSE 65; RESP 16; TEMP 36.8; O2SAT 97
[2021-11-30] MEDS: carbidopa-levodopa 25-100mg Tablet 1 EACH PO ×4 (09:02→20:24)
[2021-11-30] MEDS: ziprasidone hcl 40 mg Capsule 80 MG PO ×2 (09:02→17:16)
[2021-11-30] MEDS: sertraline 50 mg Tablet PO (09:02)
[2021-11-30] MEDS: benztropine 1 mg Tablet PO ×3 (09:02→20:23)
[2021-11-30] MEDS: gabapentin 300 mg Capsule PO ×3 (09:02→20:25)
[2021-11-30] MEDS: pantoprazole DR 40 mg Tablet PO (09:02)
[2021-11-30] MEDS: FUROsemide 20 mg Tablet PO (09:02)
[2021-11-30] MEDS: ropinirole 1 mg Tablet PO ×3 (09:02→20:25)
[2021-11-30] MEDS: diclofenac 1% Topical Gel 100 gm 4 APPLIC TOPICAL ×4 (09:03→20:24)
[2021-11-30] MEDS: buprenorphine-naloxone 4-1 mg Film 2 EACH SUBLINGUAL ×3 (09:03→20:23)
[2021-11-30] MEDS: divalproex ER 500 mg Tablet (24H) 1000 MG PO (09:05)
[2021-11-30] MEDS: OLANZapine 5 mg ODT PO ×3 (09:10→18:51)
[2021-11-30 13:34] VITALS: BP 109/74; PULSE 84; RESP 16; TEMP 36.8; O2SAT 96
[2021-11-30] MEDS: hyDROXYzine 25 mg Capsule 50 MG PO (17:22)
--- NOTE | 2021-11-30 18:26 | P.NPUPN_ITS ---
Subjective NPU Subjective: Patient is a 60-year-old white female with schizoaffective disorder admitted with disorganized behavior and auditory hallucinations. She reported no side effects from the increase in Depakote. She has been redirectable and milieu and continue to remain isolative although she was attending groups today. She reported that the voices were less intense and less frequent. She had expressed desire to not return to [facility]. She stated that she would consider another nursing home if possible. She had expressed concern about her lack of identification. Preparatory Technician of this note reported some concern about patient being able to receive any controlled substances such as Suboxone from outpatient pharmacy without any identification. She denied any intense worsening depression and has been since tolerating the tapering of Zoloft at this time. Mental Status Exam MSE Comments: This is an overweight white female in hospital scrubs with limited grooming and adequate eye contact. Absent dentition. No abnormal movements except for mild psychomotor retardation with an odd wide based gait. She was cooperative with exam in mild distress. Speech was normal in rate and volume. Mood described as better .affect was more constricted. She endorsed no feelings of hopelessness. Thought process linear, and superficial. thought content showed no evidence of suicidal or homicidal ideation. There is no evidence of any delusional thinking today. Attention and concentration were intact and memory appeared unreliable but none were formally tested. She?s alert and oriented times three. Insight and judgment appeared feeble and impulse control appeared limited. Vitals/I&O/Wt Last Vital Signs Temp 98.2 F 11/30/21 13:34 Pulse 84 11/30/21 13:34 Resp 16 11/30/21 13:34 BP 109/74 11/30/21 13:34 Pulse Ox 96 11/30/21 13:34 O2 Del Method 11/30/21 13:34 Weight last 48 hrs Weight 79.107 kg Data NPU : 11/25/21 00:48 11/25/21 00:48 A&P Assessment and plan (1) Schizoaffective disorder: Status: Acute (2) Acute psychosis: Status: Resolved (3) Cannabis use disorder, moderate, dependence: Status: Acute (4) Insomnia: Status: Acute Qualifiers: Insomnia type: unspecified Qualified Code(s): G47.00 - Insomnia, unspecified (5) Opioid dependence on agonist therapy: Status: Acute Plan This is a 60-year-old white female with a long history of mental illness and some limited addiction history who presented to the emergency department 2 days after discharge with psychosis 1. Continue Geodon 80mg bid, increase Depakote 1000mg ER in am. Continue Carbadopa/levodopa as prescribed. Continue zoloft at 50mg in am (concern regarding increased mood fluctuations with SSRI use with patient with schizoaffective disorder bipolar type. 2. Continue every 15 minute checks for safety. 3. Encourage individual, group and milieu therapies. 4. Encourage sober living treatment after discharge at the highest level of care to which he is willing to commit. 5. Consider guardianship, evaluate with OT DANIELLA examination. Involuntary Hold Information 96 Hour Hold: 96 Hour Involuntary Admission: No Attestations NPU Medical Necessity Statement*: Inpatient hospitalization is medically necessary and the clinically appropriate intervention at this time. We will monitor medications and make changes as indicated. Patient will be in the hospital with likely length of stay is 5-10 days. Coding Level of Care Code Established Pt Acute Financial Developer for Edmundo Larson Patient Type Established History Problem Focused Exam Problem Focused Medical Decision Making Straight Forward Diagnoses Schizoaffective disorder F25.9 Acute psychosis F23 Cannabis use disorder, moderate, dependence F12.20 Insomnia G47.00 Insomnia type: unspecified Opioid dependence on agonist therapy F11.20
[2021-11-30 20:11] VITALS: BP 115/75; PULSE 83; RESP 16; TEMP 36.3; O2SAT 94
[2021-11-30] MEDS: docusate sodium 100 mg Capsule PO (20:24)
[2021-11-30] MEDS: zolpidem 5 mg Tablet 10 MG PO (20:25)
[2021-12-01] MEDS: ropinirole 1 mg Tablet PO ×3 (08:11→20:15)
[2021-12-01] MEDS: gabapentin 300 mg Capsule PO ×3 (08:11→20:15)
[2021-12-01] MEDS: benztropine 1 mg Tablet PO ×2 (08:11→20:16)
[2021-12-01] MEDS: ziprasidone hcl 40 mg Capsule 80 MG PO ×2 (08:12→17:48)
[2021-12-01] MEDS: divalproex ER 500 mg Tablet (24H) 1000 MG PO (08:12)
[2021-12-01] MEDS: pantoprazole DR 40 mg Tablet PO (08:12)
[2021-12-01] MEDS: buprenorphine-naloxone 4-1 mg Film 2 EACH SUBLINGUAL ×3 (08:12→20:16)
[2021-12-01] MEDS: carbidopa-levodopa 25-100mg Tablet 1 EACH PO ×4 (08:12→20:15)
[2021-12-01] MEDS: FUROsemide 20 mg Tablet PO (08:12)
[2021-12-01] MEDS: sertraline 50 mg Tablet 25 MG PO (08:18)
[2021-12-01] MEDS: OLANZapine 5 mg ODT PO ×3 (08:24→20:21)
[2021-12-01] MEDS: diclofenac 1% Topical Gel 100 gm 4 APPLIC TOPICAL ×4 (08:38→20:24)
[2021-12-01] MEDS: blistex lip oint 7 gm Tube 1 APPLIC TOPICAL (12:41)
[2021-12-01 13:57] VITALS: BP 104/79; PULSE 84; RESP 18; TEMP 36.6; O2SAT 95
[2021-12-01] MEDS: haloperidol 5 mg Tablet PO (15:12)
--- NOTE | 2021-12-01 16:12 | W.PM.NPUPNS ---
Subjective NPU Subjective: Patient is a 60-year-old white female with schizoaffective disorder admitted with disorganized behavior and auditory hallucinations and a history of disorganized thinking. She reported no side effects from her medication adjustment. She denied any worsening in regards to her mood. She continued to isolate herself on the milieu. She reports that she some improved sleep with continued use of Ambien at night. She reports less frequency in racing thoughts since the Depakote was increased. She denies any suicidal thoughts at this time. She had reported a prior history of depressed mood but did not report any worsening in her mood as the Zoloft remained at 25mg a day. She had reported issues with chronic pain and reports reduction in pain on suboxone 24mg/day. Mental Status Exam MSE Comments: This is an overweight white female in hospital scrubs with limited grooming and adequate eye contact. Absent dentition. No abnormal movements except for mild psychomotor retardation with a wide based gait. She was cooperative with exam in no acute distress. Speech was normal in rate and volume. Mood described as okay. Her affect was more constricted. She endorsed no feelings of hopelessness. Thought process linear, and superficial. thought content showed no evidence of suicidal or homicidal ideation. There is no evidence of any delusional thinking today. Attention and concentration were intact and memory appeared unreliable but none were formally tested. She?s alert and oriented times three. Insight and judgment appeared feeble and impulse control appeared limited. Vitals/I&O/Wt Last Vital Signs Temp 98 F 12/01/21 13:57 Pulse 84 12/01/21 13:57 Resp 18 12/01/21 13:57 BP 104/79 12/01/21 13:57 Pulse Ox 95 12/01/21 13:57 O2 Del Method 12/01/21 13:57 Weight last 48 hrs Weight 79.107 kg Data NPU : 11/25/21 00:48 11/25/21 00:48 A&P Assessment and plan (1) Schizoaffective disorder: Status: Acute (2) Acute psychosis: Status: Resolved (3) Cannabis use disorder, moderate, dependence: Status: Acute (4) Insomnia: Status: Acute Qualifiers: Insomnia type: unspecified Qualified Code(s): G47.00 - Insomnia, unspecified (5) Opioid dependence on agonist therapy: Status: Acute Plan This is a 60-year-old white female with a long history of mental illness and some limited addiction history who presented to the emergency department 2 days after discharge with psychosis 1. Continue Geodon 80mg bid, continue Depakote 1000mg ER in am. Continue Carbadopa/levodopa as prescribed. Continue zoloft at 25mg in am (concern regarding increased mood fluctuations with SSRI use with patient with schizoaffective disorder bipolar type. Continue ambien 10mg at night and suboxone 24mg/day. 2. Continue every 15 minute checks for safety. 3. Encourage individual, group and milieu therapies. 4. Encourage sober living treatment after discharge at the highest level of care to which he is willing to commit. 5. Consider guardianship, evaluate with OT DANIELLA examination. Involuntary Hold Information 96 Hour Hold: 96 Hour Involuntary Admission: No Attestations NPU Medical Necessity Statement*: Inpatient hospitalization is medically necessary and the clinically appropriate intervention at this time. We will monitor medications and make changes as indicated. Patient will be in the hospital with likely length of stay is 5-10 days. Coding Level of Care Code Established Pt Acute Specification Writer for Edmundo Larson Patient Type Established History Problem Focused Exam Problem Focused Medical Decision Making Straight Forward Diagnoses Schizoaffective disorder F25.9 Acute psychosis F23 Cannabis use disorder, moderate, dependence F12.20 Insomnia G47.00 Insomnia type: unspecified Opioid dependence on agonist therapy F11.20
[2021-12-01] MEDS: zolpidem 5 mg Tablet 10 MG PO (20:14)
[2021-12-01 21:22] VITALS: BP 121/77; PULSE 68; RESP 20; TEMP 36.7; O2SAT 98
[2021-12-01 22:00] VITALS: TEMP 36.7
[2021-12-02 06:00] VITALS: BP 92/59; PULSE 61; RESP 18; TEMP 36.7; O2SAT 98
[2021-12-02] MEDS: carbidopa-levodopa 25-100mg Tablet 1 EACH PO ×4 (08:10→20:56)
[2021-12-02] MEDS: sertraline 50 mg Tablet 25 MG PO (08:10)
[2021-12-02] MEDS: gabapentin 300 mg Capsule PO ×3 (08:11→20:57)
[2021-12-02] MEDS: ziprasidone hcl 40 mg Capsule 80 MG PO ×2 (08:11→17:45)
[2021-12-02] MEDS: FUROsemide 20 mg Tablet PO (08:11)
[2021-12-02] MEDS: buprenorphine-naloxone 4-1 mg Film 2 EACH SUBLINGUAL ×3 (08:11→20:57)
[2021-12-02] MEDS: divalproex ER 500 mg Tablet (24H) 1000 MG PO (08:11)
[2021-12-02] MEDS: ropinirole 1 mg Tablet PO ×3 (08:11→20:56)
[2021-12-02] MEDS: pantoprazole DR 40 mg Tablet PO (08:11)
[2021-12-02] MEDS: benztropine 1 mg Tablet PO ×3 (08:11→20:55)
[2021-12-02] MEDS: diclofenac 1% Topical Gel 100 gm 4 APPLIC TOPICAL ×2 (08:11→17:46)
[2021-12-02] MEDS: OLANZapine 5 mg ODT PO ×4 (08:12→19:22)
[2021-12-02] MEDS: blistex lip oint 7 gm Tube 1 APPLIC TOPICAL ×2 (12:02→18:17)
[2021-12-02 14:00] VITALS: BP 89/56; PULSE 69; RESP 16; TEMP 36.9; O2SAT 98
--- NOTE | 2021-12-02 16:27 | W.PM.NPUPNS ---
Subjective NPU Subjective: Patient is a 60-year-old white female with schizoaffective disorder admitted with disorganized behavior and auditory hallucinations and a history of disorganized thinking. She reported no side effects from her medication adjustment. The patient reports that she does not wish to continue to remain here in the hospital but was concerned about guardianship. She reports that she did not wish to lose her freedoms. She reports that she feels that she may be able to take care of herself but reported that there was potential barriers including being able to get her medications without identification. She reported no feelings of hopelessness. She had reported that her moods had been more stable with the increase in Depakote. She had acknowledged having difficulties with compliance with medications. She reports reasonable management of her pain with buprenorphine on a regular basis. Mental Status Exam MSE Comments: This is an overweight white female in hospital scrubs with limited grooming and adequate eye contact. Absent dentition. No abnormal movements except for mild psychomotor retardation with a wide based gait. She was cooperative with exam in no acute distress. Speech was normal in rate and volume. Mood described as allright. Her affect remained flat. She endorsed no feelings of hopelessness. Thought process was linear, and superficial. thought content showed no evidence of suicidal or homicidal ideation. There is no evidence of any delusional thinking today. Attention and concentration were intact and memory appeared fair to a but none were formally tested. She?s alert and oriented times three. Insight and judgment appeared feeble and impulse control appeared limited. Vitals/I&O/Wt Last Vital Signs Temp 98.4 F 12/02/21 14:00 Pulse 69 12/02/21 14:00 Resp 16 12/02/21 14:00 BP 89/56 12/02/21 14:00 Pulse Ox 98 12/02/21 14:00 O2 Del Method 12/02/21 06:00 Data NPU : 11/25/21 00:48 11/25/21 00:48 A&P Assessment and plan (1) Schizoaffective disorder: Status: Acute (2) Acute psychosis: Status: Resolved (3) Cannabis use disorder, moderate, dependence: Status: Acute (4) Insomnia: Status: Acute Qualifiers: Insomnia type: unspecified Qualified Code(s): G47.00 - Insomnia, unspecified (5) Opioid dependence on agonist therapy: Status: Acute Plan This is a 60-year-old white female with a long history of mental illness and some limited addiction history who presented to the emergency department 2 days after discharge with psychosis 1. Continue Geodon 80mg bid, continue Depakote 1000mg ER in am. Continue Carbadopa/levodopa as prescribed. Discontinue zoloft. Continue ambien 10mg at night and suboxone 24mg/day. 2. Continue every 15 minute checks for safety. 3. Encourage individual, group and milieu therapies. 4. Encourage sober living treatment after discharge at the highest level of care to which he is willing to commit. 5. DANIELLA evaluation supported that patient is able to live independently but may benefit from a comp field case manager. Involuntary Hold Information 96 Hour Hold: 96 Hour Involuntary Admission: No Attestations NPU Medical Necessity Statement*: Inpatient hospitalization is medically necessary and the clinically appropriate intervention at this time. We will monitor medications and make changes as indicated. Patient will be in the hospital with likely length of stay is 2-4 days. Coding Level of Care Code Established Pt Acute Student Counsellor for Edmundo Larson Patient Type Established History Problem Focused Exam Problem Focused Medical Decision Making Straight Forward Diagnoses Schizoaffective disorder F25.9 Acute psychosis F23 Cannabis use disorder, moderate, dependence F12.20 Insomnia G47.00 Insomnia type: unspecified Opioid dependence on agonist therapy F11.20
[2021-12-02] MEDS: tizanidine 4 mg Tablet PO (18:14)
[2021-12-02] MEDS: zolpidem 5 mg Tablet 10 MG PO (20:55)
[2021-12-02] MEDS: hyDROXYzine 25 mg Capsule 50 MG PO (21:01)
[2021-12-02 22:00] VITALS: BP 97/64; PULSE 71; RESP 15; TEMP 36.7; O2SAT 99
--- NOTE | 2021-12-02 22:50 | NUR.SHIFT ---
2000: pt assessment at bedside. pt reports 9/10 anxiety 4/10 depression. pt manner is incongruent with the anxiety level described. pt was lying in bed when this nurse entered room, reading with her reading glasses on. when this nurse entered room, pt sat up, removed reading glasses and smiled. pt appeared calm and content. pt reports mood is down this is also incongruent with appearance. pt denies si/hi/avh at this time and reports a bm today. took all meds as prescribed. q15 min safety checks continued in milieu
[2021-12-03 06:00] VITALS: BP 136/84; PULSE 83; RESP 16; TEMP 36.8; O2SAT 99
[2021-12-03] MEDS: divalproex ER 500 mg Tablet (24H) 1000 MG PO (08:41)
[2021-12-03] MEDS: ropinirole 1 mg Tablet PO ×3 (08:42→20:37)
[2021-12-03] MEDS: sertraline 50 mg Tablet 25 MG PO (08:42)
[2021-12-03] MEDS: tizanidine 4 mg Tablet PO (08:42)
[2021-12-03] MEDS: benztropine 1 mg Tablet PO ×4 (08:42→20:38)
[2021-12-03] MEDS: ziprasidone hcl 40 mg Capsule 80 MG PO ×2 (08:42→16:31)
[2021-12-03] MEDS: FUROsemide 20 mg Tablet PO (08:42)
[2021-12-03] MEDS: carbidopa-levodopa 25-100mg Tablet 1 EACH PO ×4 (08:42→20:37)
[2021-12-03] MEDS: pantoprazole DR 40 mg Tablet PO (08:42)
[2021-12-03] MEDS: gabapentin 300 mg Capsule PO ×3 (08:42→20:38)
[2021-12-03] MEDS: buprenorphine-naloxone 4-1 mg Film 2 EACH SUBLINGUAL ×3 (08:43→20:38)
[2021-12-03] MEDS: OLANZapine 5 mg ODT PO ×3 (08:50→20:49)
[2021-12-03] MEDS: diclofenac 1% Topical Gel 100 gm 4 APPLIC TOPICAL ×2 (09:33→16:35)
[2021-12-03 14:00] VITALS: BP 96/65; PULSE 73; RESP 16; TEMP 36.6; O2SAT 98
--- NOTE | 2021-12-03 16:36 | P.NPUPN_ITS ---
Subjective NPU Subjective: Patient is a 60-year-old white female with schizoaffective disorder admitted with disorganized behavior and auditory hallucinations and a history of disorganized thinking. The patient continues to report her lack of desire of having guardianship with placement in a locked facility. She reports that she should be given a chance to succeed while residing at [facility] with intensive outpatient services available. The patient reported no side effects from her medication. She reports no feelings of hopelessness. She had reported having some distrust of others but states that she feels that she can manage her own behaviors and moods. Staff notes the patient has at times isolated herself but appears to be engaged in self-care appropriately. Mental Status Exam MSE Comments: This is an overweight white female in hospital scrubs with limited grooming and adequate eye contact. Absent dentition. No abnormal movements except for mild psychomotor retardation with a wide based gait. She was cooperative with exam in no acute distress. Speech was normal in rate and volume. Mood described as okay. Her affect remained somewhat constricted. She endorsed no feelings of hopelessness. Thought process was linear, and superficial. thought content showed no evidence of suicidal or homicidal idea tion. There is no evidence of any delusional thinking today. Attention and concentration were intact and memory appeared fair to a but none were formally tested. She?s alert and oriented times three. Insight and judgment appeared feeble and impulse control appeared limited. Vitals/I&O/Wt Last Vital Signs Temp 98 F 12/03/21 14:00 Pulse 73 12/03/21 14:00 Resp 16 12/03/21 14:00 BP 96/65 12/03/21 14:00 Pulse Ox 98 12/03/21 14:00 O2 Del Method 12/03/21 06:00 Data NPU : 11/25/21 00:48 11/25/21 00:48 A&P Assessment and plan (1) Schizoaffective disorder: Status: Acute (2) Acute psychosis: Status: Resolved (3) Cannabis use disorder, moderate, dependence: Status: Acute (4) Insomnia: Status: Acute Qualifiers: Insomnia type: unspecified Qualified Code(s): G47.00 - Insomnia, unspecified (5) Opioid dependence on agonist therapy: Status: Acute Plan This is a 60-year-old white female with a long history of mental illness and some limited addiction history who presented to the emergency department 2 days after discharge with psychosis 1. Continue Geodon 80mg bid, continue Depakote 1000mg ER in am. Continue Carbadopa/levodopa as prescribed. Continue ambien 10mg at night and suboxone 24mg/day. 2. Continue every 15 minute checks for safety. 3. Encourage individual, group and milieu therapies. 4. Encourage sober living treatment after discharge at the highest level of care to which he is willing to commit. 5. DANIELLA evaluation supported that patient is able to live independently but may benefit from a family preservation caseworker. Will attempt to have patient placed in [facility] in interim, and outpatient follow up acutely if not pursuing guardianship. 6. Check depakote level, ast/alt/cbc with diff Involuntary Hold Information 96 Hour Hold: 96 Hour Involuntary Admission: No Attestations NPU Medical Necessity Statement*: Inpatient hospitalization is medically necessary and the clinically appropriate intervention at this time. We will monitor medications and make changes as indicated. Patient will be in the hospital with likely length of stay is 2-4 days. Coding Level of Care Code Established Pt Acute Front End Drupal Developer for Edmundo Larson Patient Type Established History Problem Focused Exam Problem Focused Medical Decision Making Straight Forward Diagnoses Schizoaffective disorder F25.9 Acute psychosis F23 Cannabis use disorder, moderate, dependence F12.20 Insomnia G47.00 Insomnia type: unspecified Opioid dependence on agonist therapy F11.20
[2021-12-03] MEDS: haloperidol 5 mg Tablet PO (16:59)
[2021-12-03 19:54] VITALS: BP 111/66; PULSE 72; RESP 18; O2SAT 98
[2021-12-03] MEDS: zolpidem 5 mg Tablet 10 MG PO (20:37)
[2021-12-03] MEDS: docusate sodium 100 mg Capsule PO (20:38)
[2021-12-04 06:00] VITALS: BP 105/58; PULSE 66; RESP 16; TEMP 36.6; O2SAT 98
[2021-12-04 08:19] LABS: Valproic Acid Level 50.8 ug/mL (50-100)
[2021-12-04] MEDS: pantoprazole DR 40 mg Tablet PO (08:27)
[2021-12-04] MEDS: divalproex ER 500 mg Tablet (24H) 1000 MG PO (08:31)
[2021-12-04] MEDS: ziprasidone hcl 40 mg Capsule 80 MG PO ×2 (08:31→17:56)
[2021-12-04] MEDS: OLANZapine 5 mg ODT PO ×2 (08:32→21:56)
[2021-12-04] MEDS: tizanidine 4 mg Tablet PO ×2 (08:32→21:55)
[2021-12-04] MEDS: FUROsemide 20 mg Tablet PO (08:32)
[2021-12-04] MEDS: carbidopa-levodopa 25-100mg Tablet 1 EACH PO ×4 (08:32→20:23)
[2021-12-04] MEDS: gabapentin 300 mg Capsule PO ×3 (08:32→20:22)
[2021-12-04] MEDS: ropinirole 1 mg Tablet PO ×3 (08:32→20:22)
[2021-12-04] MEDS: buprenorphine-naloxone 4-1 mg Film 2 EACH SUBLINGUAL ×3 (08:33→20:22)
[2021-12-04] MEDS: benztropine 1 mg Tablet PO ×3 (08:33→20:23)
--- NOTE | 2021-12-04 08:35 | PC.NURSE ---
REFUSED SCHEDULED VOLTAREN GEL
--- NOTE | 2021-12-04 08:35 | PC.NURSE ---
PRN ZYPREXA ZYDIS 5 MG GIVEN PO PER PT REQUEST
--- NOTE | 2021-12-04 10:37 | PC.NURSE ---
Nursing Assessment Patient is washing her hands upon entering room and sat on bed for assessment. Patient states she slept well and is in no pain this morning. Patient denies homicidal or suicidal ideations. Also denies any visual or audio hallucinations. Patient states she was anxious this morning and already went to nurse's station and rn administered zydus and zyprexa. States no other concerns at this time.
[2021-12-04] MEDS: diclofenac 1% Topical Gel 100 gm 4 APPLIC TOPICAL ×2 (11:10→18:44)
[2021-12-04] MEDS: haloperidol 5 mg Tablet PO (13:23)
--- NOTE | 2021-12-04 13:24 | PC.NURSE ---
PRN MEDICATIONS PT REQUEST HALDOL FOR ANXIETY. HALDDOL 5 MG GIVEN ORDERED.
[2021-12-04 14:00] VITALS: BP 96/56; PULSE 69; RESP 16; TEMP 36.8; O2SAT 94
--- NOTE | 2021-12-04 17:21 | P.NPUPN_ITS ---
Subjective NPU Subjective: Patient presents today reporting [place]. She is willing to discharge and may come back tomorrow. Talk somewhat about guardianship which she was not thrilled about. However spoke with the treatment team in person today and they talked about the story over the last 6 months to a year that challenges her capacity for independent living. Prior to being at [employer] recently, she was at a [facility] where she failed to adjust and ended up just walking away and ending up homeless. Prior to that he was in [place] where she had 8 hours of FIRE CONTROL TECHNICIAN G assistance every day of the week and 3 hours of nursing 3 days a week and she was unable to manage her apartment and affairs at that time which led to the placement in a fci. Mental Status Exam MSE Comments: This is an overweight white female in hospital scrubs with limited grooming and adequate eye contact. Absent dentition. No abnormal movements except for mild psychomotor retardation with a wide based gait. She was cooperative with exam in no acute distress. Speech was normal in rate and volume. Mood described as okay. Her affect remained somewhat constricted. She endorsed no feelings of hopelessness. Thought process was linear, and superficial. thought content, she denied suicidal or homicidal ideation. There is no evidence of any delusional thinking today. She denied auditory or visual hallucinations. Attention and concentration were intact and memory appeared fair to a but none were formally tested. She?s alert and oriented times three. Insight and judgment appeared limited and impulse control appeared limited. Vitals/I&O/Wt Last Vital Signs Temp 98.2 F 12/04/21 14:00 Pulse 69 12/04/21 14:00 Resp 16 12/04/21 14:00 BP 96/56 12/04/21 14:00 Pulse Ox 94 12/04/21 14:00 O2 Del Method 12/04/21 14:00 Data NPU : 11/25/21 00:48 11/25/21 00:48 A&P Assessment and plan (1) Schizoaffective disorder: Status: Acute (2) Acute psychosis: Status: Resolved (3) Cannabis use disorder, moderate, dependence: Status: Acute (4) Insomnia: Status: Acute Qualifiers: Insomnia type: unspecified Qualified Code(s): G47.00 - Insomnia, un specified (5) Opioid dependence on agonist therapy: Status: Acute Plan This is a 60-year-old white female with a long history of mental illness and some limited addiction history who presented to the emergency department 2 days after discharge with psychosis 1. Continue Geodon 80mg bid, continue Depakote 1000mg ER in am. Continue Carbadopa/levodopa as prescribed. Continue ambien 10mg at night and suboxone 24mg/day. 2. Continue every 15 minute checks for safety. 3. Encourage individual, group and milieu therapies. 4. Encourage sober living treatment after discharge at the highest level of care to which he is willing to commit. 5. [facility] evaluation supported that patient is able to live independently but may benefit from a case monitor. However, recent history described individual who is incapable of managing her self and make decisions that are so sanitizing at the very least so we will be pursuing guardianship. Involuntary Hold Information 96 Hour Hold: 96 Hour Involuntary Admission: No Attestations NPU Medical Necessity Statement*: Inpatient hospitalization is medically necessary and the clinically appropriate intervention at this time. We will monitor medications and make changes as indicated. Patient will be in the hospital with likely length of stay is 2-4 days. This likely will be quite prolonged based on pursuit of guardianship. Coding Level of Care Code Acute Coat Hanger Shaper Machine Operator for Edmundo Larson Diagnoses Schizoaffective disorder F25.9 Acute psychosis F23 Cannabis use disorder, moderate, dependence F12.20 Insomnia G47.00 Insomnia type: unspecified Opioid dependence on agonist therapy F11.20
[2021-12-04] MEDS: docusate sodium 100 mg Capsule PO (20:22)
[2021-12-04] MEDS: zolpidem 5 mg Tablet 10 MG PO (20:23)
[2021-12-04 21:33] VITALS: BP 95/61; PULSE 80; RESP 14; TEMP 37; O2SAT 95
[2021-12-05 06:00] VITALS: BP 122/85; PULSE 84; RESP 15; TEMP 37; O2SAT 96
[2021-12-05] MEDS: buprenorphine-naloxone 4-1 mg Film 2 EACH SUBLINGUAL ×3 (08:12→21:24)
[2021-12-05] MEDS: benztropine 1 mg Tablet PO ×3 (08:12→21:23)
[2021-12-05] MEDS: divalproex ER 500 mg Tablet (24H) 1000 MG PO (08:12)
[2021-12-05] MEDS: pantoprazole DR 40 mg Tablet PO (08:12)
[2021-12-05] MEDS: hyDROXYzine 25 mg Capsule 50 MG PO (08:13)
[2021-12-05] MEDS: ropinirole 1 mg Tablet PO ×3 (08:13→21:23)
[2021-12-05] MEDS: gabapentin 300 mg Capsule PO ×3 (08:13→21:24)
[2021-12-05] MEDS: ziprasidone hcl 40 mg Capsule 80 MG PO ×2 (08:13→18:13)
[2021-12-05] MEDS: carbidopa-levodopa 25-100mg Tablet 1 EACH PO ×4 (08:13→21:23)
[2021-12-05] MEDS: FUROsemide 20 mg Tablet PO (08:14)
--- NOTE | 2021-12-05 08:14 | PC.NURSE ---
PRN VISTARIL 50 MG GIVEN PO PER PT C/O STATED ANXIETY, MED SEEKING ASKING FOR ZYPREXA OR HALDOL
[2021-12-05 14:00] VITALS: BP 112/73; PULSE 87; RESP 18; O2SAT 99
[2021-12-05] MEDS: haloperidol 5 mg Tablet PO (15:22)
--- NOTE | 2021-12-05 15:23 | PC.NURSE ---
PRN HALDOL 5 MG GIVEN PO PER PT C/O STATED AGITATION. PT DEMANDING ANY AND ALL PRN MEDICATIONS SHE CAN HAVE AT ALL TIMES
--- NOTE | 2021-12-05 18:13 | PC.NURSE ---
refused scheduled Voltaren gel
--- NOTE | 2021-12-05 19:19 | W.PM.NPUPNS ---
Subjective NPU Subjective: Patient presents today having some sadness and frustration about the treatment plan. We did discuss her having a family member in [place] with whom she feels she can return and live with their assistance. She relates she will attempt to get the number and make sure she has the address so we can confirm and assist in seeing if this is a viable option. We were clear however that based on her history in the last couple of years independent living as a plan is unreasonable. Mental Status Exam MSE Comments: This is an overweight white female in hospital scrubs with limited grooming and adequate eye contact. Absent dentition. No abnormal movements except for mild psychomotor retardation with a wide based gait. She was cooperative with exam in no acute distress. Speech was normal in rate and volume. Mood described as okay. Her affect remained somewhat constricted. She endorsed no feelings of hopelessness. Thought process was linear, and superficial. thought content, she denied suicidal or homicidal ideation. There is no evidence of any delusional thinking today. She denied auditory or visual hallucinations. Attention and concentration were intact and memory appeared fair to a but none were formally tested. She?s alert and oriented times three. Insight and judgment appeared limited and impulse control appeared limited. Vitals/I&O/Wt Last Vital Signs Temp 98 F 12/05/21 22:00 Pulse 73 12/05/21 22:00 Resp 16 12/05/21 22:00 BP 104/61 12/05/21 22:00 Pulse Ox 96 12/05/21 22:00 O2 Del Method 12/05/21 22:00 Data NPU : 11/25/21 00:48 11/25/21 00:48 A&P Assessment and plan (1) Schizoaffective disorder: Status: Acute (2) Acute psychosis: Status: Resolved (3) Cannabis use disorder, moderate, dependence: Status: Acute (4) Insomnia: Status: Acute Qualifiers: Insomnia type: unspecified Qualified Code(s): G47.00 - Insomnia, unspecified (5) Opioid dependence on agonist therapy: Status: Acute Plan This is a 60-year-old white female with a long history of mental illness and some limited addiction history who presented to the emergency department 2 days after discharge with psychosis 1. Continue Geodon 80mg bid, continue Depakote 1000mg ER in am. Continue Carbadopa/levodopa as prescribed. Continue ambien 10mg at night and suboxone 24mg/day. 2. Continue every 15 minute checks for safety. 3. Encourage individual, group and milieu therapies. 4. Encourage sober living treatment after discharge at the highest level of care to which he is willing to commit. 5. [facility] evaluation supported that patient is able to live independently but may benefit from a case management coordinator. However, recent history described individual who is incapable of managing her self and make decisions that are so sanitizing at the very least so we will be pursuing guardianship. Involuntary Hold Information 96 Hour Hold: 96 Hour Involuntary Admission: No Attestations NPU Medical Necessity Statement*: Inpatient hospitalization is medically necessary and the clinically appropriate intervention at this time. We will monitor medications and make changes as indicated. Patient will be in the hospital with likely length of stay is 2-4 days. This likely will be quite prolonged based on pursuit of guardianship if this family member does not materialize. Coding Level of Care Code Acute Job Superintendent for Edmundo Larson Diagnoses Schizoaffective disorder F25.9 Acute psychosis F23 Cannabis use disorder, moderate, dependence F12.20 Insomnia G47.00 Insomnia type: unspecified Opioid dependence on agonist therapy F11.20
[2021-12-05] MEDS: docusate sodium 100 mg Capsule PO (21:23)
[2021-12-05] MEDS: zolpidem 5 mg Tablet 10 MG PO (21:23)
[2021-12-05 22:00] VITALS: BP 104/61; PULSE 73; RESP 16; TEMP 36.6; O2SAT 96
[2021-12-06 05:59] VITALS: BP 106/60; PULSE 74; RESP 14; TEMP 36.5; O2SAT 97
--- NOTE | 2021-12-06 07:15 | P.NPUPN_ITS ---
Subjective NPU Subjective: Patient presents today reporting that she is doing okay. She gave the name and address of the family number but did not have a phone number. She is hopeful to be that process will be viable but does understand our plan for guardianship. Otherwise she denies any issues and is eating sleeping well. Mental Status Exam MSE Comments: This is an overweight white female in hospital scrubs with limited grooming and adequate eye contact. Absent dentition. No abnormal movements except for mild psychomotor retardation with a wide based gait. She was cooperative with exam in no acute distress. Speech was normal in rate and volume. Mood described as fine. Her affect remained somewhat constricted. She endorsed no feelings of hopelessness. Thought process was linear, and superficial. thought content, she denied suicidal or homicidal ideation. There is no evidence of any delusional thinking today. She denied auditory or visual hallucinations. Attention and concentration were intact and memory appeared fair to a but none were formally tested. She?s alert and oriented times three. Insight and judgment appeared limited and impulse control appeared limited. Vitals/I&O/Wt Last Vital Signs Temp 97.7 F 12/06/21 05:59 Pulse 74 12/06/21 05:59 Resp 14 12/06/21 05:59 BP 106/60 12/06/21 05:59 Pulse Ox 97 12/06/21 05:59 O2 Del Method 12/06/21 05:59 Data NPU : 11/25/21 00:48 11/25/21 00:48 A&P Assessment and plan (1) Schizoaffective disorder: Status: Acute (2) Acute psychosis: Status: Resolved (3) Cannabis use disorder, moderate, dependence: Status: Acute (4) Insomnia: Status: Acute Qualifiers: Insomnia type: unspecified Qualified Code(s): G47.00 - Insomnia, unspecified (5) Opioid dependence on agonist therapy: Status: Acute Plan This is a 60-year-old white female with a long history of mental illness and some limited addiction history who presented to the emergency department 2 days after discharge with psychosis 1. Continue Geodon 80mg bid, continue Depakote 1000mg ER in am. Continue Carbadopa/levodopa as prescribed. Continue ambien 10mg at night and suboxone 24mg/day. 2. Continue every 15 minute checks for safety. 3. Encourage individual, group and milieu therapies. 4. Encourage sober living treatment after discharge at the highest level of care to which he is willing to commit. 5. [facility] evaluation supported that patient is able to live independently but may benefit from a director case management. However, recent history described individual who is incapable of managing her self and make decisions that are so sanitizing at the very least so we will be pursuing guardianship. Involuntary Hold Information 96 Hour Hold: 96 Hour Involuntary Admission: No Attestations NPU Medical Necessity Statement*: Inpatient hospitalization is medically necessary and the clinically appropriate intervention at this time. We will monitor medications and make changes as indicated. Patient will be in the hospital with likely length of stay is 2-4 days. This likely will be quite prolonged based on pursuit of guardianship if this family member does not materialize. Coding Level of Care Code Acute Solar Business Developer for Edmundo Larson Diagnoses Schizoaffective disorder F25.9 Acute psychosis F23 Cannabis use disorder, moderate, dependence F12.20 Insomnia G47.00 Insomnia type: unspecified Opioid dependence on agonist therapy F11.20
[2021-12-06] MEDS: ziprasidone hcl 40 mg Capsule 80 MG PO ×2 (08:42→17:06)
[2021-12-06] MEDS: buprenorphine-naloxone 4-1 mg Film 2 EACH SUBLINGUAL ×3 (08:43→20:17)
[2021-12-06] MEDS: hyDROXYzine 25 mg Capsule 50 MG PO ×2 (08:43→13:24)
[2021-12-06] MEDS: divalproex ER 500 mg Tablet (24H) 1000 MG PO (08:43)
[2021-12-06] MEDS: tizanidine 4 mg Tablet PO ×2 (08:43→20:17)
[2021-12-06] MEDS: carbidopa-levodopa 25-100mg Tablet 1 EACH PO ×4 (08:43→20:17)
[2021-12-06] MEDS: FUROsemide 20 mg Tablet PO (08:44)
[2021-12-06] MEDS: ropinirole 1 mg Tablet PO ×3 (08:44→20:17)
[2021-12-06] MEDS: gabapentin 300 mg Capsule PO ×3 (08:44→20:17)
[2021-12-06] MEDS: benztropine 1 mg Tablet PO ×3 (08:44→20:18)
[2021-12-06] MEDS: haloperidol 5 mg Tablet PO (08:47)
[2021-12-06] MEDS: albuterol 8 gm MDI 2 PUFF INHALATION ×2 (09:51→15:10)
[2021-12-06 09:52] VITALS: PULSE 74; RESP 18; O2SAT 95
[2021-12-06 14:00] VITALS: BP 104/63; PULSE 84; RESP 18; TEMP 36.6; O2SAT 98
[2021-12-06] MEDS: OLANZapine 5 mg ODT PO ×2 (14:18→20:18)
[2021-12-06 15:11] VITALS: PULSE 81; RESP 18; O2SAT 96
[2021-12-06] MEDS: diclofenac 1% Topical Gel 100 gm 4 APPLIC TOPICAL ×2 (17:06→20:20)
[2021-12-06 19:56] VITALS: BP 105/69; PULSE 83; RESP 16; TEMP 36.4; O2SAT 98
[2021-12-06] MEDS: docusate sodium 100 mg Capsule PO (20:17)
[2021-12-06] MEDS: zolpidem 5 mg Tablet 10 MG PO (20:17)
[2021-12-07 06:00] VITALS: BP 88/54; PULSE 70; RESP 18; TEMP 36.4; O2SAT 96; BMI 26.2
[2021-12-07] MEDS: ziprasidone hcl 40 mg Capsule 80 MG PO ×2 (08:24→17:24)
[2021-12-07] MEDS: divalproex ER 500 mg Tablet (24H) 1000 MG PO (08:24)
[2021-12-07] MEDS: gabapentin 300 mg Capsule PO ×3 (08:24→20:10)
[2021-12-07] MEDS: benztropine 1 mg Tablet PO ×3 (08:24→20:11)
[2021-12-07] MEDS: pantoprazole DR 40 mg Tablet PO (08:24)
[2021-12-07] MEDS: ropinirole 1 mg Tablet PO ×3 (08:24→20:10)
[2021-12-07] MEDS: carbidopa-levodopa 25-100mg Tablet 1 EACH PO ×4 (08:25→20:10)
[2021-12-07] MEDS: FUROsemide 20 mg Tablet PO (08:25)
[2021-12-07] MEDS: buprenorphine-naloxone 4-1 mg Film 2 EACH SUBLINGUAL ×3 (08:25→20:13)
[2021-12-07] MEDS: tizanidine 4 mg Tablet PO (08:25)
[2021-12-07] MEDS: OLANZapine 5 mg ODT PO ×4 (08:29→20:24)
[2021-12-07] MEDS: diclofenac 1% Topical Gel 100 gm 4 APPLIC TOPICAL ×4 (09:21→20:11)
[2021-12-07] MEDS: ibuprofen 600 mg Tablet PO ×3 (09:46→20:24)
--- NOTE | 2021-12-07 10:45 | P.NPUPN_ITS ---
Subjective NPU Subjective: Patient presents today reporting that she is continuing to do leg work to find opportunities other than the ones we may have. At this point identified 2 other possible family resources for her to go to but unfortunately she does not have the number for any of them. We agreed that we will work with the treatment team tomorrow to see if any of these could be identified but we continue to be clear that there is significant evidence supporting the fact that discharge independently would not be a functional plan. Mental Status Exam MSE Comments: This is an overweight white female in hospital scrubs with limited grooming and adequate eye contact. Absent dentition. No abnormal movements except for mild psychomotor retardation with a wide based gait. She was cooperative with exam in no acute distress. Speech was normal in rate and volume. Mood described as I feel better. Her affect remained somewhat constricted. She endorsed no feelings of hopelessness. Thought process was linear, and superficial. thought content, she denied suicidal or homicidal ideation. There is no evidence of any delusional thinking today. She denied auditory or visual hallucinations. Attention and concentration were intact and memory appeared fair to a but none were formally tested. She?s alert and oriente d times three. Insight and judgment appeared limited and impulse control appeared limited. Vitals/I&O/Wt Last Vital Signs Temp 98 F 12/07/21 14:00 Pulse 77 12/07/21 20:10 Resp 18 12/07/21 20:10 BP 103/68 12/07/21 20:10 Pulse Ox 100 12/07/21 20:10 O2 Del Method 12/06/21 15:11 Weight last 48 hrs Weight 80.739 kg Data NPU : 11/25/21 00:48 11/25/21 00:48 A&P Assessment and plan (1) Schizoaffective disorder: Status: Acute (2) Acute psychosis: Status: Resolved (3) Cannabis use disorder, moderate, dependence: Status: Acute (4) Insomnia: Status: Acute Qualifiers: Insomnia type: unspecified Qualified Code(s): G47.00 - Insomnia, unspecified (5) Opioid dependence on agonist therapy: Status: Acute Plan This is a 60-year-old white female with a long history of mental illness and some limited addiction history who presented to the emergency department 2 days after discharge with psychosis 1. Continue Geodon 80mg bid, continue Depakote 1000mg ER in am. Continue Carbadopa/levodopa as prescribed. Continue ambien 10mg at night and suboxone 24mg/day. 2. Continue every 15 minute checks for safety. 3. Encourage individual, group and milieu therapies. 4. Encourage sober living treatment after discharge at the highest level of care to which he is willing to commit. 5. [facility] evaluation supported that patient is able to live independently but may benefit from a director of casework department. However, recent history described individual who is incapable of managing her self and make decisions that are so sanitizing at the very least so we will be pursuing guardianship. Involuntary Hold Information 96 Hour Hold: 96 Hour Involuntary Admission: No Attestations NPU Medical Necessity Statement*: Inpatient hospitalization is medically necessary and the clinically appropriate intervention at this time. We will monitor medications and make changes as indicated. Patient will be in the hospital with likely length of stay is 2-4 days. This likely will be quite prolonged based on pursuit of guardianship if this family member does not materialize. Coding Level of Care Code Acute Hand Splitter for Edmundo Larson Diagnoses Schizoaffective disorder F25.9 Acute psychosis F23 Cannabis use disorder, moderate, dependence F12.20 Insomnia G47.00 Insomnia type: unspecified Opioid dependence on agonist therapy F11.20
[2021-12-07 14:00] VITALS: BP 94/64; PULSE 64; RESP 18; TEMP 36.6; O2SAT 100
[2021-12-07] MEDS: blistex lip oint 7 gm Tube 1 APPLIC TOPICAL (15:12)
[2021-12-07 20:10] VITALS: BP 103/68; PULSE 77; RESP 18; O2SAT 100
[2021-12-07] MEDS: diphenhydrAMINE 25 mg Capsule PO (20:10)
[2021-12-07] MEDS: docusate sodium 100 mg Capsule PO (20:10)
[2021-12-07] MEDS: zolpidem 5 mg Tablet 10 MG PO (20:14)
[2021-12-08] MEDS: hyDROXYzine 25 mg Capsule 50 MG PO ×2 (04:22→13:34)
--- NOTE | 2021-12-08 04:23 | PC.NURSE ---
PT CAME TO DESK REQUESTING ADDITIONAL SLEEP MED. PT ADVISED THAT IT IS AFTER 4AM AND THAT SLEEP MEDS CAN NOT BE GIVEN AFTER 2AM. PT THEN REQUESTED, WELL IS THERE ANYTHING I CAN HAVE FOR ANXIETY. I JUST CAN'T SLEEP! PT HAS BEEN IN HER ROOM RESTING WITH BOTH EYES CLOSED SINCE 2100 LAST EVENING, ONLY GETTING UP TWICE TO USE THE BATHROOM AND GET SOMETHING TO DRINK OR EAT. vISTARIL 50MG PO GIVEN.
[2021-12-08 06:00] VITALS: BP 101/70; PULSE 74; RESP 18; TEMP 36.8; O2SAT 97
[2021-12-08] MEDS: divalproex ER 500 mg Tablet (24H) 1000 MG PO (08:04)
[2021-12-08] MEDS: ziprasidone hcl 40 mg Capsule 80 MG PO ×2 (08:04→18:06)
[2021-12-08] MEDS: pantoprazole DR 40 mg Tablet PO (08:04)
[2021-12-08] MEDS: ropinirole 1 mg Tablet PO ×3 (08:04→20:53)
[2021-12-08] MEDS: benztropine 1 mg Tablet PO ×3 (08:05→20:50)
[2021-12-08] MEDS: buprenorphine-naloxone 4-1 mg Film 2 EACH SUBLINGUAL ×3 (08:05→20:50)
[2021-12-08] MEDS: FUROsemide 20 mg Tablet PO (08:05)
[2021-12-08] MEDS: gabapentin 300 mg Capsule PO ×3 (08:05→20:53)
[2021-12-08] MEDS: carbidopa-levodopa 25-100mg Tablet 1 EACH PO ×4 (08:05→20:50)
[2021-12-08] MEDS: OLANZapine 5 mg ODT PO (08:33)
--- NOTE | 2021-12-08 12:55 | PC.NURSE ---
refused scheduled Voltaren gel
[2021-12-08] MEDS: ibuprofen 600 mg Tablet PO (13:34)
[2021-12-08 14:00] VITALS: BP 99/62; PULSE 78; RESP 16; O2SAT 98
[2021-12-08] MEDS: propranolol 20 mg Tablet PO ×2 (15:03→21:00)
--- NOTE | 2021-12-08 15:04 | PC.NURSE ---
Addendum entered by Vaishali Dye LPN 12/08/21 18:08: prn med effective no further c/o anxiety currently, pt reading book in room during rounding, no further c/o anxiety Original Note: PRN INDERAL 20 MG GIVEN PO PER PT C/O STATED ANXIETY. ALSO REQUESTING HER INHALER, RESPIRATORY CALLED BY THIS NURSE. ASSURED PATIENT THAT THEY WOULD BE BY SHORTLY TO DO TREATMENT. NO S/S OF ACUTE DISTRESS CURRENTLY
[2021-12-08 16:04] VITALS: PULSE 78; RESP 16; O2SAT 98
[2021-12-08] MEDS: albuterol 8 gm MDI 2 PUFF INHALATION (16:04)
--- NOTE | 2021-12-08 17:01 | P.NPUPN_ITS ---
Subjective NPU Subjective: Patient presents today somewhat tearful. After calls are made to the people on her list she was left with the reality that she has burned a lot of bridges and no one is open to taking her. Additionally she discovered that one of the people that she thought might take her . We agreed just to get back to where began which is guardianship. She was really struggling with excepting that this is what brings have gotten both agreeable that her leaving and replaying the same patterns will not be helpful. Mental Status Exam MSE Comments: This is an overweight white female in hospital scrubs with limited grooming and adequate eye contact. Absent dentition. No abnormal movements except for mild psychomotor retardation with a wide based gait. She was cooperative with exam in mild distress. Speech was normal in rate and volume. Mood described as I am sad. Her affect remained somewhat constricted, and tearful. Thought process was linear, and superficial. thought content, she denied suicidal or homicidal ideation. There is no evidence of any delusional thinking today. She denied auditory or visual hallucinations. Attention and concentration were intact and memory appeared fair to a but none were formally tested. She?s alert and oriented times three. Insight and judgment appeared limited and impulse control appeared limited. Vitals/I&O/Wt Last Vital Signs Temp 98.2 F 12/08/21 06:00 Pulse 78 12/08/21 16:04 Resp 16 12/08/21 16:04 BP 99/62 12/08/21 14:00 Pulse Ox 98 12/08/21 16:04 O2 Del Method 12/08/21 16:04 Weight last 48 hrs Weight 80.739 kg Data NPU : 11/25/21 00:48 11/25/21 00:48 A&P Assessment and plan (1) Schizoaffective disorder: Status: Acute (2) Acute psychosis: Status: Resolved (3) Cannabis use disorder, moderate, dependence: Status: Acute (4) Insomnia: Status: Acute Qualifiers: Insomnia type: unspecified Qualified Code(s): G47.00 - Insomnia, unspecified (5) Opioid dependence on agonist therapy: Status: Acute Plan This is a 60-year-old white female with a long history of mental illness and some limited addiction history who presented to the emergency department 2 days after discharge with psychosis 1. Continue Geodon 80mg bid, continue Depakote 1000mg ER in am. Continue Carbadopa/levodopa as prescribed. Continue ambien 10mg at night and suboxone 24mg/day. 2. Continue every 15 minute checks for safety. 3. Encourage individual, group and milieu therapies. 4. Encourage sober living treatment after discharge at the highest level of car e to which he is willing to commit. 5. [facility] evaluation supported that patient is able to live independently but may benefit from a director case management. However, recent history described individual who is incapable of managing her self and make decisions that are so sanitizing at the very least so we will be pursuing guardianship. Involuntary Hold Information 96 Hour Hold: 96 Hour Involuntary Admission: No Attestations NPU Medical Necessity Statement*: Inpatient hospitalization is medically necessary and the clinically appropriate intervention at this time. We will monitor medications and make changes as indicated. Patient will be in the hospital with likely length of stay is 6-10 days. This likely will be quite prolonged based on pursuit of guardianship if this family member does not materialize. Coding Level of Care Code Acute Animal Pathologist for Edmundo Larson Diagnoses Schizoaffective disorder F25.9 Acute psychosis F23 Cannabis use disorder, moderate, dependence F12.20 Insomnia G47.00 Insomnia type: unspecified Opioid dependence on agonist therapy F11.20
[2021-12-08] MEDS: diclofenac 1% Topical Gel 100 gm 4 APPLIC TOPICAL (18:24)
[2021-12-08 20:16] VITALS: RESP 18
[2021-12-08] MEDS: docusate sodium 100 mg Capsule PO (20:52)
[2021-12-08] MEDS: zolpidem 5 mg Tablet 10 MG PO (20:53)
[2021-12-09] MEDS: ibuprofen 600 mg Tablet PO ×2 (01:13→17:53)
[2021-12-09] MEDS: hyDROXYzine 25 mg Capsule 50 MG PO ×2 (01:14→08:23)
--- NOTE | 2021-12-09 02:59 | PC.NURSE ---
Medicated with prn's this shift;Inderal,Ibuprofen and Vistaril.
[2021-12-09 06:00] VITALS: BP 91/58; PULSE 73; RESP 17; O2SAT 100
[2021-12-09] MEDS: divalproex ER 500 mg Tablet (24H) 1000 MG PO (07:54)
[2021-12-09] MEDS: carbidopa-levodopa 25-100mg Tablet 1 EACH PO ×4 (07:54→19:53)
[2021-12-09] MEDS: FUROsemide 20 mg Tablet PO (07:55)
[2021-12-09] MEDS: pantoprazole DR 40 mg Tablet PO (07:55)
[2021-12-09] MEDS: gabapentin 300 mg Capsule PO ×3 (07:55→19:53)
[2021-12-09] MEDS: benztropine 1 mg Tablet PO ×3 (07:55→19:53)
[2021-12-09] MEDS: ropinirole 1 mg Tablet PO ×3 (07:55→19:53)
[2021-12-09] MEDS: ziprasidone hcl 40 mg Capsule 80 MG PO ×2 (07:56→17:18)
[2021-12-09] MEDS: buprenorphine-naloxone 4-1 mg Film 2 EACH SUBLINGUAL ×3 (07:56→19:52)
[2021-12-09] MEDS: diclofenac 1% Topical Gel 100 gm 4 APPLIC TOPICAL ×2 (07:57→19:54)
[2021-12-09 09:05] VITALS: PULSE 75; RESP 17; O2SAT 98
[2021-12-09] MEDS: magnesium hydroxide 30 mL UDC PO (09:14)
[2021-12-09] MEDS: propranolol 20 mg Tablet PO ×2 (09:54→15:00)
[2021-12-09] MEDS: tizanidine 4 mg Tablet PO (13:23)
[2021-12-09 14:00] VITALS: BP 96/63; PULSE 68; RESP 18; TEMP 36.9; O2SAT 99
--- NOTE | 2021-12-09 15:54 | W.PM.NPUPNS ---
Subjective NPU Subjective: Patient presents today continue to be quite tearful as she processes the of her sister and the reality of her situation. She endorsed trying to be positive overall and wanting to prevent this from being a situation brings her down. We discussed that he had filed the guardianship papers and are hopeful that this will be something that his sister and given things that she desires not just having someone in charge of me. She denied any additional cognitive issues. Mental Status Exam MSE Comments: This is an overweight white female in hospital scrubs with limited grooming and adequate eye contact. Absent dentition. No abnormal movements except for mild psychomotor retardation with a wide based gait. She was cooperative with exam in mild distress. Speech was normal in rate and volume. Mood described as still depressed. Her affect remained somewhat constricted, and tearful. Thought process was linear, and superficial. thought content, she denied suicidal or homicidal ideation. There is no evidence of any delusional thinking today. She denied auditory or visual hallucinations. Attention and concentration were intact and memory appeared fair to a but none were formally tested. She?s alert and oriented times three. Insight and judgment appeared limited and impulse control appeared limited. Vitals/I&O/Wt Last Vital Signs Temp 98.4 F 12/09/21 14:00 Pulse 68 12/09/21 14:00 Resp 18 12/09/21 14:00 BP 96/63 12/09/21 14:00 Pulse Ox 99 12/09/21 14:00 O2 Del Method 12/09/21 14:00 Data NPU : 11/25/21 00:48 11/25/21 00:48 A&P Assessment and plan (1) Schizoaffective disorder: Status: Acute (2) Acute psychosis: Status: Resolved (3) Cannabis use disorder, moderate, dependence: Status: Acute (4) Insomnia: Status: Acute Qualifiers: Insomnia type: unspecified Qualified Code(s): G47.00 - Insomnia, unspecified (5) Opioid dependence on agonist therapy: Status: Acute Plan This is a 60-year-old white female with a long history of mental illness and some limited addiction history who presented to the emergency department 2 days after discharge with psychosis 1. Continue Geodon 80mg bid, continue Depakote 1000mg ER in am. Continue Carbadopa/levodopa as prescribed. Continue ambien 10mg at night and suboxone 24mg/day. 2. Continue every 15 minute checks for safety. 3. Encourage individual, group and milieu therapies. 4. Encourage sober living treatment after discharge at the highest level of care to which he is willing to commit. 5. [facility] evaluation supported that patient is able to live independently but may benefit from a family caseworker. However, recent history described individual who is incapable of managing her self and making decisions that destabilized her. We filed for guardianship and will await hearing. Involuntary Hold Information 96 Hour Hold: 96 Hour Involuntary Admission: No Attestations NPU Medical Necessity Statement*: Inpatient hospitalization is medically necessary and the clinically appropriate intervention at this time. We will monitor medications and make changes as indicated. Patient will be in the hospital with likely length of stay is 6-10 days. This likely will be quite prolonged based on pursuit of guardianship if this family member does not materialize. Coding Level of Care Code Acute Geophysical Computer for Edmundo Larson Diagnoses Schizoaffective disorder F25.9 Acute psychosis F23 Cannabis use disorder, moderate, dependence F12.20 Insomnia G47.00 Insomnia type: unspecified Opioid dependence on agonist therapy F11.20
[2021-12-09] MEDS: zolpidem 5 mg Tablet 10 MG PO (19:53)
[2021-12-09] MEDS: docusate sodium 100 mg Capsule PO (19:53)
[2021-12-09 21:08] VITALS: BP 93/65; PULSE 72; RESP 16; O2SAT 97
[2021-12-10] MEDS: propranolol 20 mg Tablet PO ×3 (04:19→20:17)
[2021-12-10 06:00] VITALS: BP 100/68; PULSE 66; RESP 20; TEMP 36.8; O2SAT 99
--- NOTE | 2021-12-10 07:54 | PC.NURSE ---
shift assessment pt c/o constipation, last reported Bowel movement was 2 days ago on 12/08/21, pt also reports some trouble urinating, saying she has had this problem for 6 years ever since she was diagnosed with acute kidney disease. assured patient that this nurse would relay into to physician during morning report. pt stated she was put on Flexeril for the urinary hesitancy/retention
[2021-12-10] MEDS: FUROsemide 20 mg Tablet PO (08:22)
[2021-12-10] MEDS: gabapentin 300 mg Capsule PO ×3 (08:22→20:16)
[2021-12-10] MEDS: ropinirole 1 mg Tablet PO ×3 (08:22→20:17)
[2021-12-10] MEDS: carbidopa-levodopa 25-100mg Tablet 1 EACH PO ×4 (08:22→20:18)
[2021-12-10] MEDS: pantoprazole DR 40 mg Tablet PO (08:22)
[2021-12-10] MEDS: benztropine 1 mg Tablet PO ×3 (08:22→20:18)
[2021-12-10] MEDS: ziprasidone hcl 40 mg Capsule 80 MG PO ×2 (08:22→17:51)
[2021-12-10] MEDS: divalproex ER 500 mg Tablet (24H) 1000 MG PO (08:22)
[2021-12-10] MEDS: buprenorphine-naloxone 4-1 mg Film 2 EACH SUBLINGUAL ×3 (08:23→20:18)
[2021-12-10] MEDS: diclofenac 1% Topical Gel 100 gm 4 APPLIC TOPICAL ×2 (08:23→17:51)
[2021-12-10 10:35] VITALS: PULSE 72; RESP 17; O2SAT 98
[2021-12-10] MEDS: albuterol 8 gm MDI 2 PUFF INHALATION (10:37)
[2021-12-10] MEDS: tizanidine 4 mg Tablet PO (12:13)
--- NOTE | 2021-12-10 12:14 | PC.NURSE ---
PRN TIZANIDINE 4 MG GIVEN PO PER PT C/O SPASMS
--- NOTE | 2021-12-10 12:23 | PC.NURSE ---
REFUSED SCHEDULED VOLTAREN GEL
[2021-12-10 14:00] VITALS: BP 93/66; PULSE 80; RESP 18; TEMP 36.7; O2SAT 98
--- NOTE | 2021-12-10 14:58 | PC.NURSE ---
PRN INDERAL 20 MG GIVEN PO PER PT C/O STATED ANXIEITY
--- NOTE | 2021-12-10 16:56 | P.NPUPN_ITS ---
Subjective NPU Subjective: Patient presents today reporting that she has accepted this process with guardianship as she learned more about it. She reports that she thought the person lived with her and was making decisions in a daily fashion like that. We discussed this being collaborative based on how functional she is and that he does not determine by default which might live. Whether that is an apartment or some kind of residential treatment environment. The report has been filed and we agreed that the timeframe to the hearing can be variable. Mental Status Exam MSE Comments: This is an overweight white female in hospital scrubs with limited grooming and adequate eye contact. Absent dentition. No abnormal mo vements except for mild psychomotor retardation with a wide based gait. She was cooperative with exam in mild but resolving distress. Speech was normal in rate and volume. Mood described as still better than yesterday, affect appears groomed. Thought process was linear, and superficial. thought content, she denied suicidal or homicidal ideation. There is no evidence of any delusional thinking today. She denied auditory or visual hallucinations. Attention and concentration were intact and memory appeared fair to a but none were formally tested. She?s alert and oriented times three. Insight and judgment appeared limited and impulse control appeared limited. Vitals/I&O/Wt Last Vital Signs Temp 98.1 F 12/10/21 14:00 Pulse 80 12/10/21 14:00 Resp 18 12/10/21 22:00 BP 93/66 12/10/21 14:00 Pulse Ox 98 12/10/21 14:00 O2 Del Method 12/10/21 14:00 Data NPU : 11/25/21 00:48 11/25/21 00:48 A&P Assessment and plan (1) Schizoaffective disorder: Status: Acute (2) Acute psychosis: Status: Resolved (3) Cannabis use disorder, moderate, dependence: Status: Acute (4) Insomnia: Status: Acute Qualifiers: Insomnia type: unspecified Qualified Code(s): G47.00 - Insomnia, unspecified (5) Opioid dependence on agonist therapy: Status: Acute Plan This is a 60-year-old white female with a long history of mental illness and some limited addiction history who presented to the emergency department 2 days after discharge with psychosis 1. Continue Geodon 80mg bid, continue Depakote 1000mg ER in am. Continue Carbadopa/levodopa as prescribed. Continue ambien 10mg at night and suboxone 24mg/day. 2. Continue every 15 minute checks for safety. 3. Encourage individual, group and milieu therapies. 4. Encourage sober living treatment after discharge at the highest level of care to which he is willing to commit. 5. DANIELLA evaluation supported that patient is able to live independently but may benefit from a comp field case manager. However, recent history described individual who is incapable of managing her self and making decisions that destabilized her. We filed for guardianship and will await hearing. Involuntary Hold Information 96 Hour Hold: 96 Hour Involuntary Admission: No Attestations NPU Medical Necessity Statement*: Inpatient hospitalization is medically necessary and the clinically appropriate intervention at this time. We will monitor medications and make changes as indicated. Patient will be in the hospital with likely length of stay is 6-10 days. This likely will be quite prolonged based on pursuit of guardianship if this family member does not materialize. Coding Level of Care Code Acute Departure Clerk for Edmundo Larson Diagnoses Schizoaffective disorder F25.9 Acute psychosis F23 Cannabis use disorder, moderate, dependence F12.20 Insomnia G47.00 Insomnia type: unspecified Opioid dependence on agonist therapy F11.20
[2021-12-10] MEDS: diphenhydrAMINE 25 mg Capsule PO (20:16)
[2021-12-10] MEDS: magnesium hydroxide 30 mL UDC PO (20:16)
[2021-12-10] MEDS: docusate sodium 100 mg Capsule PO (20:17)
[2021-12-10] MEDS: zolpidem 5 mg Tablet 10 MG PO (20:17)
[2021-12-10] MEDS: psyllium powder Pkt 1 PACKET PO (21:08)
[2021-12-10 22:00] VITALS: RESP 18
[2021-12-11 06:00] VITALS: BP 113/73; PULSE 60; RESP 17; TEMP 37; O2SAT 92
[2021-12-11] MEDS: ropinirole 1 mg Tablet PO ×3 (08:24→23:15)
[2021-12-11] MEDS: ziprasidone hcl 40 mg Capsule 80 MG PO ×2 (08:24→17:26)
[2021-12-11] MEDS: carbidopa-levodopa 25-100mg Tablet 1 EACH PO ×4 (08:24→20:39)
[2021-12-11] MEDS: gabapentin 300 mg Capsule PO ×3 (08:24→20:39)
[2021-12-11] MEDS: buprenorphine-naloxone 4-1 mg Film 2 EACH SUBLINGUAL ×3 (08:24→20:37)
[2021-12-11] MEDS: FUROsemide 20 mg Tablet PO (08:24)
[2021-12-11] MEDS: divalproex ER 500 mg Tablet (24H) 1000 MG PO (08:24)
[2021-12-11] MEDS: diclofenac 1% Topical Gel 100 gm 4 APPLIC TOPICAL ×3 (08:24→17:27)
[2021-12-11] MEDS: pantoprazole DR 40 mg Tablet PO (08:24)
[2021-12-11] MEDS: benztropine 1 mg Tablet PO ×3 (08:24→20:39)
[2021-12-11] MEDS: hyDROXYzine 25 mg Capsule 50 MG PO ×2 (08:26→12:54)
[2021-12-11] MEDS: ibuprofen 600 mg Tablet PO ×2 (10:20→18:39)
[2021-12-11] MEDS: tizanidine 4 mg Tablet PO ×2 (10:23→18:39)
[2021-12-11 10:47] LABS: Add Urine Microscopic? NO; Charge for UA Resulting for Rev
[2021-12-11 11:19] LABS: Bilirubin Urine Neg (Negative); Blood Urine Neg (Negative); Glucose Urine UA Norm (Normal); Ketones Urine Negative (Negative); Leukocyte Esterase Urine Negative (Negative); Nitrate Urine Negative (Negative); Protein Urine Neg (Negative); Urine Appearance Clear (CLEAR); Urine Color Yellow (Yellow); Urobilinogen Urine Norm (Negative); pH Urine 7 (5-7)
[2021-12-11 14:00] VITALS: BP 88/54; PULSE 74; RESP 18; TEMP 36.9; O2SAT 96
[2021-12-11] MEDS: albuterol 8 gm MDI 2 PUFF INHALATION (15:46)
[2021-12-11 15:47] VITALS: PULSE 74; RESP 18; O2SAT 96
--- NOTE | 2021-12-11 15:55 | P.NPUPN_ITS ---
Subjective NPU Subjective: Patient presents today continuing to struggle with the reality of her current situation. He was tearful as she discussed her lack of options. We discussed the guardianship process and our continued pursuit thereof. Otherwise she denies any changes or any problems. Mental Status Exam MSE Comments: This is an overweight white female in hospital scrubs with limited grooming and adequate eye contact. Absent dentition. No abnormal movements except for mild psychomotor retardation with a wide based gait. She was cooperative with exam in mild but resolving distress. Speech was normal in rate and volume. Mood described all right, affect appears congruent and occasionally tearful. Thought process was linear, and superficial. thought content, she denied suicidal or homicidal ideation. There is no evidence of any delusional thinking today. She denied auditory or visual hallucinations. Attention and concentration were intact and memory appeared fair to a but none were formally tested. She?s alert and oriented times three. Insight and judgment appeared limited and impulse control appeared limited. Vitals/I&O/Wt Last Vital Signs Temp 98.0 F 12/11/21 20:48 Pulse 79 12/11/21 20:48 Resp 17 12/11/21 20:48 BP 132/80 12/11/21 20:48 Pulse Ox 100 12/11/21 20:48 O2 Del Method 12/11/21 20:48 Data NPU : 11/25/21 00:48 11/25/21 00:48 A&P Assessment and plan (1) Schizoaffective disorder: Status: Acute (2) Acute psychosis: Status: Resolved (3) Cannabis use disorder, moderate, dependence: Status: Acute (4) Insomnia: Status: Acute Qualifiers: Insomnia type: unspecified Qualified Code(s): G47.00 - Insomnia, unspecified (5) Opioid dependence on agonist therapy: Status: Acute Plan This is a 60-year-old white female with a long history of mental illness and some limited addiction history who presented to the emergency department 2 days after discharge with psychosis 1. Continue Geodon 80mg bid, continue Depakote 1000mg ER in am. Continue Carbadopa/levodopa as prescribed. Continue ambien 10mg at night and suboxone 24mg/day. 2. Continue every 15 minute checks for safety. 3. Encourage individual, group and milieu therapies. 4. Encourage sober living treatment after discharge at the highest level of care to which he is willing to commit. 5. DANIELLA evaluation supported that patient is able to live independently but may benefit from a pillowcase cleaner. However, recent history described individual who is incapable of managing her self and making decisions that destabilized her. We filed for guardianship and will await hearing. Involuntary Hold Information 96 Hour Hold: 96 Hour Involuntary Admission: No Attestations NPU Medical Necessity Statement*: Inpatient hospitalization is medically necessary and the clinically appropriate intervention at this time. We will monitor medications and make changes as indicated. Patient will be in the hospital with likely length of stay is 6-10 days. This likely will be quite prolonged based on pursuit of guardianship if this family member does not materialize. Coding Level of Care Code Acute Cube Machine Tender for Edmundo Fwd Diagnoses Schizoaffective disorder F25.9 Acute psychosis F23 Cannabis use disorder, moderate, dependence F12.20 Insomnia G47.00 Insomnia type: unspecified Opioid dependence on agonist therapy F11.20
[2021-12-11] MEDS: psyllium powder Pkt 1 PACKET PO (16:43)
[2021-12-11] MEDS: propranolol 20 mg Tablet PO (16:43)
[2021-12-11] MEDS: blistex lip oint 7 gm Tube 1 APPLIC TOPICAL (17:26)
[2021-12-11] MEDS: haloperidol 5 mg Tablet PO (18:39)
[2021-12-11] MEDS: zolpidem 5 mg Tablet 10 MG PO (20:38)
[2021-12-11] MEDS: docusate sodium 100 mg Capsule PO (20:39)
[2021-12-11 20:48] VITALS: BP 132/80; PULSE 79; RESP 17; TEMP 36.7; O2SAT 100
[2021-12-12 06:00] VITALS: BP 100/66; PULSE 69; RESP 16; TEMP 36.7; O2SAT 98
[2021-12-12] MEDS: ziprasidone hcl 40 mg Capsule 80 MG PO ×2 (08:43→17:33)
[2021-12-12] MEDS: pantoprazole DR 40 mg Tablet PO (08:43)
[2021-12-12] MEDS: gabapentin 300 mg Capsule PO ×3 (08:43→20:11)
[2021-12-12] MEDS: divalproex ER 500 mg Tablet (24H) 1000 MG PO (08:43)
[2021-12-12] MEDS: tizanidine 4 mg Tablet PO ×2 (08:44→21:00)
[2021-12-12] MEDS: benztropine 1 mg Tablet PO ×3 (08:44→20:11)
[2021-12-12] MEDS: FUROsemide 20 mg Tablet PO (08:44)
[2021-12-12] MEDS: ropinirole 1 mg Tablet PO ×3 (08:44→20:11)
[2021-12-12] MEDS: propranolol 20 mg Tablet PO ×2 (08:44→15:32)
[2021-12-12] MEDS: carbidopa-levodopa 25-100mg Tablet 1 EACH PO ×4 (08:44→20:11)
[2021-12-12] MEDS: buprenorphine-naloxone 4-1 mg Film 2 EACH SUBLINGUAL ×3 (08:44→20:12)
[2021-12-12] MEDS: ibuprofen 600 mg Tablet PO ×2 (08:48→15:32)
[2021-12-12] MEDS: haloperidol 5 mg Tablet PO ×3 (08:48→21:00)
[2021-12-12] MEDS: diclofenac 1% Topical Gel 100 gm 4 APPLIC TOPICAL ×2 (09:48→17:33)
[2021-12-12 11:19] VITALS: PULSE 65; RESP 18; O2SAT 98
[2021-12-12] MEDS: albuterol 8 gm MDI 2 PUFF INHALATION (11:19)
[2021-12-12 11:25] VITALS: PULSE 68
[2021-12-12] MEDS: hyDROXYzine 25 mg Capsule 50 MG PO (13:18)
--- NOTE | 2021-12-12 13:45 | P.NPUPN_ITS ---
Subjective NPU Subjective: Patient presents today seeming much more frustrated and adversarial in our conversations. She eventually was able to acknowledge that the situation in a lady improved by finding appropriate residential circumstances after the guardianship hearing. We discussed alternatives but were stuck with the fact that there were no good alternatives Mental Status Exam MSE Comments: This is an overweight white female in hospital scrubs with limited grooming and adequate eye contact. Absent dentition. No abnormal movements except for mild psychomotor retardation with a wide based gait. She was cooperative with exam in mild but resolving distress. Speech was normal in rate and volume. Mood described all right, affect appears frustrated/irritable. Thought process was linear, and superficial. thought content, she denied suicidal or homicidal ideation. There is no evidence of any delusional thinkin g today. She denied auditory or visual hallucinations. Attention and concentration were intact and memory appeared fair to a but none were formally tested. She?s alert and oriented times three. Insight and judgment appeared limited and impulse control appeared limited. Vitals/I&O/Wt Last Vital Signs Temp 98.0 F 12/12/21 06:00 Pulse 68 12/12/21 11:25 Resp 18 12/12/21 11:19 BP 100/66 12/12/21 06:00 Pulse Ox 98 12/12/21 11:19 O2 Del Method 12/12/21 11:19 Data NPU : 11/25/21 00:48 11/25/21 00:48 A&P Assessment and plan (1) Schizoaffective disorder: Status: Acute (2) Acute psychosis: Status: Resolved (3) Cannabis use disorder, moderate, dependence: Status: Acute (4) Insomnia: Status: Acute Qualifiers: Insomnia type: unspecified Qualified Code(s): G47.00 - Insomnia, unspecified (5) Opioid dependence on agonist therapy: Status: Acute Plan This is a 60-year-old white female with a long history of mental illness and some limited addiction history who presented to the emergency department 2 days after discharge with psychosis 1. Continue Geodon 80mg bid, continue Depakote 1000mg ER in am. Continue Carbadopa/levodopa as prescribed. Continue ambien 10mg at night and suboxone 24mg/day. 2. Continue every 15 minute checks for safety. 3. Encourage individual, group and milieu therapies. 4. Encourage sober living treatment after discharge at the highest level of care to which he is willing to commit. 5. DANIELLA evaluation supported that patient is able to live independently but may benefit from a case assistant. However, recent history described individual who is incapable of managing her self and making decisions that destabilized her. We filed for guardianship and will await hearing. Involuntary Hold Information 96 Hour Hold: 96 Hour Involuntary Admission: No Attestations NPU Medical Necessity Statement*: Inpatient hospitalization is medically necessary and the clinically appropriate intervention at this time. We will monitor medications and make changes as indicated. Patient will be in the hospital with likely length of stay is 6-10 days. This likely will be quite prolonged based on pursuit of guardianship if this family member does not materialize. Coding Level of Care Code Acute Steak Tenderizer Machine for Edmundo Larson Diagnoses Schizoaffective disorder F25.9 Acute psychosis F23 Cannabis use disorder, moderate, dependence F12.20 Insomnia G47.00 Insomnia type: unspecified Opioid dependence on agonist therapy F11.20
[2021-12-12 14:00] VITALS: BP 112/65; PULSE 72; RESP 18; TEMP 36.9; O2SAT 99
[2021-12-12] MEDS: diphenhydrAMINE 25 mg Capsule PO (15:33)
[2021-12-12] MEDS: psyllium powder Pkt 1 PACKET PO (18:27)
[2021-12-12] MEDS: artificial tears Op Soln 15 mL Btl 1 DROP EYE-BOTH (18:41)
[2021-12-12] MEDS: docusate sodium 100 mg Capsule PO (20:11)
[2021-12-12] MEDS: zolpidem 5 mg Tablet 10 MG PO (20:12)
[2021-12-12 21:00] VITALS: BP 100/64; PULSE 66; RESP 14; TEMP 36.4; O2SAT 100
[2021-12-13 06:00] VITALS: BP 135/80; PULSE 71; RESP 16; TEMP 36.4; O2SAT 100
[2021-12-13] MEDS: FUROsemide 20 mg Tablet PO (08:42)
[2021-12-13] MEDS: divalproex ER 500 mg Tablet (24H) 1000 MG PO (08:42)
[2021-12-13] MEDS: ropinirole 1 mg Tablet PO ×3 (08:42→20:32)
[2021-12-13] MEDS: ziprasidone hcl 40 mg Capsule 80 MG PO ×2 (08:42→17:36)
[2021-12-13] MEDS: pantoprazole DR 40 mg Tablet PO (08:43)
[2021-12-13] MEDS: carbidopa-levodopa 25-100mg Tablet 1 EACH PO ×4 (08:43→20:32)
[2021-12-13] MEDS: benztropine 1 mg Tablet PO ×3 (08:43→20:32)
[2021-12-13] MEDS: buprenorphine-naloxone 4-1 mg Film 2 EACH SUBLINGUAL ×3 (08:43→20:32)
[2021-12-13] MEDS: gabapentin 300 mg Capsule PO ×3 (08:43→20:31)
[2021-12-13] MEDS: hyDROXYzine 25 mg Capsule 50 MG PO ×3 (08:47→20:36)
[2021-12-13] MEDS: albuterol 8 gm MDI 2 PUFF INHALATION ×2 (09:41→17:48)
[2021-12-13 09:42] VITALS: PULSE 78; RESP 16; O2SAT 98
[2021-12-13] MEDS: diclofenac 1% Topical Gel 100 gm 4 APPLIC TOPICAL (12:40)
[2021-12-13] MEDS: ibuprofen 600 mg Tablet PO ×2 (12:41→20:35)
[2021-12-13] MEDS: artificial tears Op Soln 15 mL Btl 1 DROP EYE-BOTH (12:41)
[2021-12-13 13:00] VITALS: BP 138/82; PULSE 72; RESP 16; TEMP 36.5; O2SAT 100
[2021-12-13] MEDS: haloperidol 5 mg Tablet PO ×2 (13:18→17:39)
--- NOTE | 2021-12-13 17:10 | W.PM.NPUPNS ---
Subjective NPU Subjective: Patient presents today still frustrated but slightly less adversarial in our conversation. She denied any new issues and reported pessimism about things getting better. We discussed alternatives but were stuck with the fact that there were no good alternatives Mental Status Exam MSE Comments: This is an overweight white female in hospital scrubs with limited grooming and adequate eye contact. Absent dentition. No abnormal movements except for mild psychomotor retardation with a wide based gait. She was cooperative with exam in mild but resolving distress. Speech was normal in rate and volume. Mood described as down, affect appears frustrated. Thought process was linear, and superficial. thought content, she denied suicidal or homicidal ideation. There is no evidence of any delusional thinking today. She denied auditory or visual hallucinations. Attention and concentration were intact and memory appeared fair to a but none were formally tested. She?s alert and oriented times three. Insight and judgment appeared limited and impulse control appeared limited. Vitals/I&O/Wt Last Vital Signs Temp 97.7 F 12/13/21 13:00 Pulse 72 12/13/21 13:00 Resp 16 12/13/21 13:00 BP 138/82 12/13/21 13:00 Pulse Ox 100 12/13/21 13:00 O2 Del Method 12/13/21 13:00 Data NPU : 11/25/21 00:48 11/25/21 00:48 A&P Assessment and plan (1) Schizoaffective disorder: Status: Acute (2) Acute psychosis: Status: Resolved (3) Cannabis use disorder, moderate, dependence: Status: Acute (4) Insomnia: Status: Acute Qualifiers: Insomnia type: unspecified Qualified Code(s): G47.00 - Insomnia, unspecified (5) Opioid dependence on agonist therapy: Status: Acute Plan This is a 60-year-old white female with a long history of mental illness and some limited addiction history who presented to the emergency department 2 days after discharge with psychosis 1. Continue Geodon 80mg bid, continue Depakote 1000mg ER in am. Continue Carbadopa/levodopa as prescribed. Continue ambien 10mg at night and suboxone 24mg/day. 2. Continue every 15 minute checks for safety. 3. Encourage individual, group and milieu therapies. 4. Encourage sober living treatment after discharge at the highest level of care to which he is willing to commit. 5. DANIELLA evaluation supported that patient is able to live independently but may benefit from a director of casework department. However, recent history described individual who is incapable of managing her self and making decisions that destabilized her. We filed for guardianship and will await hearing. Involuntary Hold Information 96 Hour Hold: 96 Hour Involuntary Admission: No Attestations NPU Medical Necessity Statement*: Inpatient hospitalization is medically necessary and the clinically appropriate intervention at this time. We will monitor medications and make changes as indicated. Patient will be in the hospital with likely length of stay is 5-9 days. This likely will be quite prolonged based on pursuit of guardianship if this family member does not materialize. Coding Level of Care Code Acute Client Relations Associate for Edmundo Fwd Diagnoses Schizoaffective disorder F25.9 Acute psychosis F23 Cannabis use disorder, moderate, dependence F12.20 Insomnia G47.00 Insomnia type: unspecified Opioid dependence on agonist therapy F11.20
[2021-12-13 17:54] VITALS: PULSE 79; RESP 16; O2SAT 98
[2021-12-13 19:50] VITALS: BP 121/75; PULSE 95; RESP 16; TEMP 36.7; O2SAT 94
[2021-12-13] MEDS: docusate sodium 100 mg Capsule PO (20:31)
[2021-12-13] MEDS: zolpidem 5 mg Tablet 10 MG PO (20:32)
[2021-12-13] MEDS: tizanidine 4 mg Tablet PO (20:35)
[2021-12-14] MEDS: hyDROXYzine 25 mg Capsule 50 MG PO ×3 (05:00→21:13)
[2021-12-14 06:00] VITALS: BP 153/85; PULSE 84; RESP 18; TEMP 36.7; O2SAT 100
[2021-12-14] MEDS: diphenhydrAMINE 25 mg Capsule PO (08:39)
[2021-12-14] MEDS: gabapentin 300 mg Capsule PO ×3 (08:39→19:55)
[2021-12-14] MEDS: divalproex ER 500 mg Tablet (24H) 1000 MG PO (08:39)
[2021-12-14] MEDS: FUROsemide 20 mg Tablet PO (08:39)
[2021-12-14] MEDS: propranolol 20 mg Tablet PO (08:40)
[2021-12-14] MEDS: carbidopa-levodopa 25-100mg Tablet 1 EACH PO ×4 (08:40→19:55)
[2021-12-14] MEDS: tizanidine 4 mg Tablet PO ×2 (08:40→16:54)
[2021-12-14] MEDS: ziprasidone hcl 40 mg Capsule 80 MG PO ×2 (08:40→17:06)
[2021-12-14] MEDS: buprenorphine-naloxone 4-1 mg Film 2 EACH SUBLINGUAL ×3 (08:40→19:54)
[2021-12-14] MEDS: benztropine 1 mg Tablet PO ×3 (08:40→19:55)
[2021-12-14] MEDS: ropinirole 1 mg Tablet PO ×3 (08:40→19:55)
[2021-12-14] MEDS: albuterol 8 gm MDI 2 PUFF INHALATION ×2 (08:42→14:57)
[2021-12-14] MEDS: pantoprazole DR 40 mg Tablet PO (08:42)
[2021-12-14 08:43] VITALS: PULSE 84; RESP 16; O2SAT 100
[2021-12-14] MEDS: diclofenac 1% Topical Gel 100 gm 4 APPLIC TOPICAL ×3 (12:56→19:56)
--- NOTE | 2021-12-14 13:38 | W.PM.NPUPNS ---
Subjective NPU Subjective: Patient presents today seeming more upbeat than the past couple days. She reports that she is not frustrated but except that she cannot do anything other than try to assist us to find her the best option. She denies any domestic issues and agreed to work with the treatment team tomorrow to see if any new options exist. Mental Status Exam MSE Comments: This is an overweight white female in hospital scrubs with limited grooming and adequate eye contact. Absent dentition. No abnormal movements except for mild psychomotor retardation with a wide based gait. She was cooperative with exam in mild but resolving distress. Speech was normal in rate and volume. Mood described as a little better, affect appears less frustrated. Thought process was linear, and superficial. thought content, she denied suicidal or homicidal ideation. There is no evidence of any delusional thinking today. She denied auditory or visual hallucinations. Attention and concentration were intact and memory appeared fair to a but none were formally tested. She?s alert and oriented times three. Insight and judgment appeared limited and impulse control appeared limited. Vitals/I&O/Wt Last Vital Signs Temp 98.1 F 12/14/21 06:00 Pulse 84 12/14/21 06:00 Resp 18 12/14/21 06:00 BP 153/85 12/14/21 06:00 Pulse Ox 100 12/14/21 06:00 O2 Del Method 12/14/21 06:00 Data NPU : 11/25/21 00:48 11/25/21 00:48 A&P Assessment and plan (1) Schizoaffective disorder: Status: Acute (2) Acute psychosis: Status: Resolved (3) Cannabis use disorder, moderate, dependence: Status: Acute (4) Insomnia: Status: Acute Qualifiers: Insomnia type: unspecified Qualified Code(s): G47.00 - Insomnia, unspecified (5) Opioid dependence on agonist therapy: Status: Acute Plan This is a 60-year-old white female with a long history of mental illness and some limited addiction history who presented to the emergency department 2 days after discharge with psychosis 1. Continue Geodon 80mg bid, continue Depakote 1000mg ER in am. Continue Carbadopa/levodopa as prescribed. Continue ambien 10mg at night and suboxone 24mg/day. 2. Continue every 15 minute checks for safety. 3. Encourage individual, group and milieu therapies. 4. Encourage sober living treatment after discharge at the highest level of care to which he is willing to commit. 5. DANIELLA evaluation supported that patient is able to live independently but may benefit from a case preparer and liner. However, recent history described individual who is incapable of managing her self and making decisions that destabilized her. We filed for guardianship and will await hearing. Involuntary Hold Information 96 Hour Hold: 96 Hour Involuntary Admission: No Attestations NPU Medical Necessity Statement*: Inpatient hospitalization is medically necessary and the clinically appropriate intervention at this time. We will monitor medications and make changes as indicated. Patient will be in the hospital with likely length of stay is 4-8 days. This likely will be quite prolonged based on pursuit of guardianship if this family member does not materialize. Coding Level of Care Code Acute Embalmer/Funeral Director for Edmundo Larson Diagnoses Schizoaffective disorder F25.9 Acute psychosis F23 Cannabis use disorder, moderate, dependence F12.20 Insomnia G47.00 Insomnia type: unspecified Opioid dependence on agonist therapy F11.20
[2021-12-14 14:00] VITALS: BP 95/62; PULSE 68; RESP 18; TEMP 36.7; O2SAT 98
[2021-12-14] MEDS: artificial tears Op Soln 15 mL Btl 1 DROP EYE-BOTH (14:41)
[2021-12-14 14:58] VITALS: PULSE 86; RESP 16; O2SAT 97
[2021-12-14] MEDS: acetaminophen 325 mg Tablet 650 MG PO (15:13)
[2021-12-14] MEDS: blistex lip oint 7 gm Tube 1 APPLIC TOPICAL (16:56)
[2021-12-14] MEDS: zolpidem 5 mg Tablet 10 MG PO (19:56)
[2021-12-14] MEDS: docusate sodium 100 mg Capsule PO (19:56)
[2021-12-14] MEDS: ibuprofen 600 mg Tablet PO (20:01)
[2021-12-14 20:10] VITALS: BP 93/59; PULSE 70; RESP 18; TEMP 36.7; O2SAT 97
[2021-12-15 06:00] VITALS: BP 100/67; PULSE 69; RESP 17; TEMP 36.7; O2SAT 98
[2021-12-15] MEDS: pantoprazole DR 40 mg Tablet PO (08:19)
[2021-12-15] MEDS: gabapentin 300 mg Capsule PO ×3 (08:19→19:46)
[2021-12-15] MEDS: FUROsemide 20 mg Tablet PO (08:19)
[2021-12-15] MEDS: benztropine 1 mg Tablet PO ×3 (08:20→19:47)
[2021-12-15] MEDS: carbidopa-levodopa 25-100mg Tablet 1 EACH PO ×4 (08:20→19:45)
[2021-12-15] MEDS: ziprasidone hcl 40 mg Capsule 80 MG PO ×2 (08:20→16:54)
[2021-12-15] MEDS: divalproex ER 500 mg Tablet (24H) 1000 MG PO (08:20)
[2021-12-15] MEDS: ropinirole 1 mg Tablet PO ×3 (08:20→19:46)
[2021-12-15] MEDS: ibuprofen 600 mg Tablet PO ×3 (08:21→19:56)
[2021-12-15] MEDS: hyDROXYzine 25 mg Capsule 50 MG PO ×3 (08:22→19:55)
[2021-12-15] MEDS: buprenorphine-naloxone 4-1 mg Film 2 EACH SUBLINGUAL ×3 (08:22→19:45)
[2021-12-15] MEDS: diclofenac 1% Topical Gel 100 gm 4 APPLIC TOPICAL ×3 (08:29→19:47)
[2021-12-15 09:20] VITALS: PULSE 90; RESP 16; O2SAT 95
[2021-12-15] MEDS: albuterol 8 gm MDI 2 PUFF INHALATION ×2 (09:20→18:29)
[2021-12-15] MEDS: artificial tears Op Soln 15 mL Btl 1 DROP EYE-BOTH ×2 (12:18→16:44)
[2021-12-15] MEDS: haloperidol 5 mg Tablet PO (12:42)
[2021-12-15] MEDS: magnesium hydroxide 30 mL UDC PO (13:55)
[2021-12-15 14:00] VITALS: BP 116/78; PULSE 78; RESP 18; TEMP 36.5; O2SAT 99
--- NOTE | 2021-12-15 14:36 | W.PM.NPUPNS ---
Subjective NPU Subjective: Patient presents today continuing in a positive direction from yesterday. She continues to endorse being hopeful that things will resolve quickly and she does not have to sit on the unit for another 3 weeks. She denies any challenges with her medication. She was eating and sleeping better. Mental Status Exam MSE Comments: This is an overweight white female in hospital scrubs with limited grooming and adequate eye contact. Absent dentition. No abnormal movements except for mild psychomotor retardation with a wide based gait. She was cooperative with exam in no acute distress. Speech was normal in rate and volume. Mood described as better, affect appears less frustrated. Thought process was linear, and superficial. thought content, she denied suicidal or homicidal ideation. There is no evidence of any delusional thinking today. She denied auditory or visual hallucinations. Attention and concentration were intact and memory appeared fair to a but none were formally tested. She?s alert and oriented times three. Insight and judgment appeared limited and impulse control appeared limited. Vitals/I&O/Wt Last Vital Signs Temp 97.7 F 12/15/21 14:00 Pulse 78 12/15/21 14:00 Resp 18 12/15/21 14:00 BP 116/78 12/15/21 14:00 Pulse Ox 99 12/15/21 14:00 O2 Del Method 12/15/21 14:00 Data NPU : 11/25/21 00:48 11/25/21 00:48 A&P Assessment and plan (1) Schizoaffective disorder: Status: Acute (2) Acute psychosis: Status: Resolved (3) Cannabis use disorder, moderate, dependence: Status: Acute (4) Insomnia: Status: Acute Qualifiers: Insomnia type: unspecified Qualified Code(s): G47.00 - Insomnia, unspecified (5) Opioid dependence on agonist therapy: Status: Acute Plan This is a 60-year-old white female with a long history of mental illness and some limited addiction history who presented to the emergency department 2 days after discharge with psychosis 1. Continue Geodon 80mg bid, continue Depakote 1000mg ER in am. Continue Carbadopa/levodopa as prescribed. Continue ambien 10mg at night and suboxone 24mg/day. 2. Continue every 15 minute checks for safety. 3. Encourage individual, group and milieu therapies. 4. Encourage sober living treatment after discharge at the highest level of care to which he is willing to commit. 5. DANIELLA evaluation supported that patient is able to live independently but may benefit from a manager of case management. However, recent history described individual who is incapable of managing her self and making decisions that destabilized her. We filed for guardianship and will await hearing. Involuntary Hold Information 96 Hour Hold: 96 Hour Involuntary Admission: No Attestations NPU Medical Necessity Statement*: Inpatient hospitalization is medically necessary and the clinically appropriate intervention at this time. We will monitor medications and make changes as indicated. Patient will be in the hospital with likely length of stay is 4-8 days. This likely will be quite prolonged based on pursuit of guardianship if this family member does not materialize. Coding Level of Care Code Acute Ride Assembly Supervisor for Edmundo Fwd Diagnoses Schizoaffective disorder F25.9 Acute psychosis F23 Cannabis use disorder, moderate, dependence F12.20 Insomnia G47.00 Insomnia type: unspecified Opioid dependence on agonist therapy F11.20
[2021-12-15 18:29] VITALS: PULSE 89; RESP 16; O2SAT 95
[2021-12-15] MEDS: docusate sodium 100 mg Capsule PO (19:46)
[2021-12-15] MEDS: zolpidem 5 mg Tablet 10 MG PO (19:47)
[2021-12-15] MEDS: tizanidine 4 mg Tablet PO (19:55)
[2021-12-15 21:24] VITALS: BP 98/63; PULSE 72; RESP 18; TEMP 36.7; O2SAT 98
[2021-12-16] MEDS: acetaminophen 325 mg Tablet 650 MG PO (02:14)
[2021-12-16] MEDS: propranolol 20 mg Tablet PO ×2 (02:14→15:08)
[2021-12-16 02:15] VITALS: BP 114/78
[2021-12-16 06:00] VITALS: BP 118/82; PULSE 69; RESP 17; TEMP 36.3; O2SAT 100
[2021-12-16] MEDS: gabapentin 300 mg Capsule PO ×3 (08:25→20:13)
[2021-12-16] MEDS: benztropine 1 mg Tablet PO ×3 (08:25→20:13)
[2021-12-16] MEDS: ropinirole 1 mg Tablet PO ×3 (08:25→20:13)
[2021-12-16] MEDS: carbidopa-levodopa 25-100mg Tablet 1 EACH PO ×4 (08:25→20:13)
[2021-12-16] MEDS: divalproex ER 500 mg Tablet (24H) 1000 MG PO (08:25)
[2021-12-16] MEDS: FUROsemide 20 mg Tablet PO (08:25)
[2021-12-16] MEDS: buprenorphine-naloxone 4-1 mg Film 2 EACH SUBLINGUAL ×3 (08:25→20:13)
[2021-12-16] MEDS: pantoprazole DR 40 mg Tablet PO (08:25)
[2021-12-16] MEDS: ziprasidone hcl 40 mg Capsule 80 MG PO ×2 (08:25→17:07)
[2021-12-16] MEDS: diclofenac 1% Topical Gel 100 gm 4 APPLIC TOPICAL ×2 (08:26→17:08)
[2021-12-16] MEDS: ibuprofen 600 mg Tablet PO ×2 (08:29→18:18)
[2021-12-16] MEDS: hyDROXYzine 25 mg Capsule 50 MG PO ×3 (08:29→22:26)
[2021-12-16] MEDS: albuterol 8 gm MDI 2 PUFF INHALATION ×2 (08:39→14:45)
[2021-12-16 08:41] VITALS: PULSE 82; RESP 18; O2SAT 97
[2021-12-16 14:00] VITALS: BP 91/60; PULSE 71; RESP 17; TEMP 36.8; O2SAT 96
[2021-12-16 14:47] VITALS: PULSE 63; PULSE 65; RESP 18; O2SAT 98
[2021-12-16] MEDS: tizanidine 4 mg Tablet PO (15:08)
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
[2021-12-16] MEDS: docusate sodium 100 mg Capsule PO (20:13)
[2021-12-16] MEDS: zolpidem 5 mg Tablet 10 MG PO (20:13)
[2021-12-16 21:23] VITALS: BP 118/75; PULSE 66; RESP 20; TEMP 36.4; O2SAT 99
[2021-12-17 06:00] VITALS: BP 113/73; PULSE 76; RESP 18; TEMP 36.6; O2SAT 99
[2021-12-17] MEDS: propranolol 20 mg Tablet PO ×3 (08:44→20:20)
[2021-12-17] MEDS: buprenorphine-naloxone 4-1 mg Film 2 EACH SUBLINGUAL ×3 (08:45→20:17)
[2021-12-17] MEDS: FUROsemide 20 mg Tablet PO (08:45)
[2021-12-17] MEDS: pantoprazole DR 40 mg Tablet PO (08:45)
[2021-12-17] MEDS: benztropine 1 mg Tablet PO ×3 (08:45→20:17)
[2021-12-17] MEDS: ropinirole 1 mg Tablet PO ×3 (08:45→20:19)
[2021-12-17] MEDS: gabapentin 300 mg Capsule PO ×3 (08:45→20:19)
[2021-12-17] MEDS: divalproex ER 500 mg Tablet (24H) 1000 MG PO (08:46)
[2021-12-17] MEDS: ziprasidone hcl 40 mg Capsule 80 MG PO ×2 (08:46→17:42)
[2021-12-17] MEDS: carbidopa-levodopa 25-100mg Tablet 1 EACH PO ×4 (08:46→20:18)
[2021-12-17] MEDS: ibuprofen 600 mg Tablet PO ×3 (08:48→21:18)
[2021-12-17] MEDS: hyDROXYzine 25 mg Capsule 50 MG PO ×2 (08:48→18:02)
[2021-12-17] MEDS: haloperidol 5 mg Tablet PO (12:14)
[2021-12-17] MEDS: tizanidine 4 mg Tablet PO (12:14)
[2021-12-17] MEDS: blistex lip oint 7 gm Tube 1 APPLIC TOPICAL (12:14)
[2021-12-17] MEDS: diclofenac 1% Topical Gel 100 gm 4 APPLIC TOPICAL ×3 (12:15→20:18)
[2021-12-17 14:00] VITALS: BP 90/55; PULSE 70; RESP 18; TEMP 37; O2SAT 96
[2021-12-17] MEDS: artificial tears Op Soln 15 mL Btl 1 DROP EYE-BOTH (14:45)
--- NOTE | 2021-12-17 14:50 | P.NPUPN_ITS ---
Subjective NPU Subjective: Patient presents today reporting that she is feeling nervous but excited that her hearing date is upon us. She is deaf and planning on going to the hearing and continues to work with the production planner on some of the options that are materializing for a place for her to go. She is optimistic that this will support of her guardian that she can have a functional existence in a supportive environment. Mental Status Exam MSE Comments: This is an overweight white female in hospital scrubs with limited grooming and adequate eye contact. Absent dentition. No abnormal movements except for mild psychomotor retardation with a wide based gait. She was cooperative with exam in no acute distress. Speech was normal in rate and volume. Mood described as happy and nervous, affect appears congruent. Thought process was more organized. thought content, she denied suicidal or homicidal ideation. There were no delusions reported or noted, and she denied auditory or visual hallucinations. Attention and concentration were intact and memory appeared fair to a but none were formally tested. She?s alert and oriented times three. Insight and judgment appeared limited but improving and impulse control appeared improving. Vitals/I&O/Wt Last Vital Signs Temp 98.6 F 12/17/21 14:00 Pulse 70 12/17/21 14:00 Resp 18 12/17/21 14:00 BP 90/55 12/17/21 14:00 Pulse Ox 96 12/17/21 14:00 O2 Del Method 12/17/21 06:00 Data NPU : 11/25/21 00:48 11/25/21 00:48 A&P Assessment and plan (1) Schizoaffective disorder: Status: Acute (2) Acute psychosis: Status: Resolved (3) Cannabis use disorder, moderate, dependence: Status: Acute (4) Insomnia: Status: Acute Qualifiers: Insomnia type: unspecified Qualified Code(s): G47.00 - Insomnia, unspecified (5) Opioid dependence on agonist therapy: Status: Acute Plan This is a 60-year-old white female with a long history of mental illness and some limited addiction history who presented to the emergency department 2 days after discharge with psychosis 1. Continue Geodon 80mg bid, continue Depakote 1000mg ER in am. Continue Carbadopa/levodopa as prescribed. Continue ambien 10mg at night and suboxone 24mg/day. 2. Continue every 15 minute checks for safety. 3. Encourage individual, group and milieu therapies. 4. Encourage sober living treatment after discharge at the highest level of care to which he is willing to commit. 5. DANIELLA evaluation supported that patient is able to live independently but may benefit from a case repairer. However, recent history described individual who is incapable of managing her self and making decisions that destabilized her. Guardianship hearing later today. Plan for discharge in the next few days once placement is secured. Involuntary Hold Information 96 Hour Hold: 96 Hour Involuntary Admission: No Attestations NPU Medical Necessity Statement*: Inpatient hospitalization is medically necessary and the clinically appropriate intervention at this time. We will monitor medications and make changes as indicated. Patient will be in the hospital with likely length of stay is 2-5 days. Coding Level of Care Code Acute Distribution Sales Representative for Edmundo Larson Diagnoses Schizoaffective disorder F25.9 Acute psychosis F23 Cannabis use disorder, moderate, dependence F12.20 Insomnia G47.00 Insomnia type: unspecified Opioid dependence on agonist therapy F11.20
[2021-12-17] MEDS: docusate sodium 100 mg Capsule PO (20:19)
[2021-12-17] MEDS: zolpidem 5 mg Tablet 10 MG PO (20:19)
[2021-12-17 20:22] VITALS: BP 118/73; PULSE 69; RESP 18; TEMP 36.8; O2SAT 99
[2021-12-18 06:00] VITALS: BP 113/62; PULSE 65; RESP 18; TEMP 37; O2SAT 96
[2021-12-18] MEDS: FUROsemide 20 mg Tablet PO (08:25)
[2021-12-18] MEDS: ropinirole 1 mg Tablet PO ×3 (08:25→20:42)
[2021-12-18] MEDS: benztropine 1 mg Tablet PO ×3 (08:25→20:42)
[2021-12-18] MEDS: gabapentin 300 mg Capsule PO ×3 (08:25→20:42)
[2021-12-18] MEDS: propranolol 20 mg Tablet PO ×3 (08:25→20:42)
[2021-12-18] MEDS: ziprasidone hcl 40 mg Capsule 80 MG PO ×2 (08:25→17:12)
[2021-12-18] MEDS: carbidopa-levodopa 25-100mg Tablet 1 EACH PO ×4 (08:26→20:42)
[2021-12-18] MEDS: pantoprazole DR 40 mg Tablet PO (08:26)
[2021-12-18] MEDS: divalproex ER 500 mg Tablet (24H) 1000 MG PO (08:26)
[2021-12-18] MEDS: buprenorphine-naloxone 4-1 mg Film 2 EACH SUBLINGUAL ×3 (08:26→20:44)
[2021-12-18] MEDS: diclofenac 1% Topical Gel 100 gm 4 APPLIC TOPICAL ×3 (08:26→17:07)
[2021-12-18] MEDS: ibuprofen 600 mg Tablet PO ×3 (08:28→20:43)
[2021-12-18] MEDS: hyDROXYzine 25 mg Capsule 50 MG PO (12:46)
[2021-12-18 14:00] VITALS: BP 99/71; PULSE 68; RESP 18; TEMP 36.8; O2SAT 96
--- NOTE | 2021-12-18 17:36 | W.PM.NPUPNS ---
Subjective NPU Subjective: Patient was in today reporting that she is feeling very excited about having her guardianship hearing behind her and having a location for discharge identified. We discussed that there was an initial issue due to her Medicaid needing to be switched from [place] to [place]. The place receiving her was worried about her not having access to her medication during that period between the discontinuation of [place] and the initiation of [place] Medicaid. We discussed that he problem solved with the pharmacy and there was agreement that 90-day supplies of the medication would be given to avoid this. We discussed discharge tomorrow. Mental Status Exam MSE Comments: This is an overweight white female in hospital scrubs with limited grooming and adequate eye contact. Absent dentition. No abnormal movements except for mild psychomotor retardation with a wide based gait. She was cooperative with exam in no acute distress. Speech was normal in rate and volume. Mood described as excited about leaving, affect appears congruent. Thought process was more organized. thought content, she denied suicidal or homicidal ideation. There were no delusions reported or noted, and she denied auditory or visual hallucinations. Attention and concentration were intact and memory appeared fair to a but none were formally tested. She?s alert and oriented times three. Insight and judgment appeared limited but improving and impulse control appeared improving. Vitals/I&O/Wt Last Vital Signs Temp 97.8 F 12/18/21 20:40 Pulse 66 12/18/21 20:40 Resp 18 12/18/21 20:40 BP 92/54 12/18/21 20:40 Pulse Ox 99 12/18/21 20:40 O2 Del Method 12/17/21 06:00 Data NPU : 11/25/21 00:48 11/25/21 00:48 A&P Assessment and plan (1) Schizoaffective disorder: Status: Acute (2) Acute psychosis: Status: Resolved (3) Cannabis use disorder, moderate, dependence: Status: Acute (4) Insomnia: Status: Acute Qualifiers: Insomnia type: unspecified Qualified Code(s): G47.00 - Insomnia, unspecified (5) Opioid dependence on agonist therapy: Status: Acute Plan This is a 60-year-old white female with a long history of mental illness and some limited addiction history who presented to the emergency department 2 days after discharge with psychosis 1. Continue Geodon 80mg bid, continue Depakote 1000mg ER in am. Continue Carbadopa/levodopa as prescribed. Continue ambien 10mg at night and suboxone 24mg/day. 2. Continue every 15 minute checks for safety. 3. Encourage individual, group and milieu therapies. 4. Encourage sober living treatment after discharge at the highest level of care to which he is willing to commit. 5. DANIELLA evaluation supported that patient is able to live independently but may benefit from a disease case manager. However, recent history described individual who is incapable of managing her self and making decisions that destabilized her. Guardianship granted and established. Plan for discharge tomorrow.. Involuntary Hold Information 96 Hour Hold: 96 Hour Involuntary Admission: No Attestations NPU Medical Necessity Statement*: Inpatient hospitalization is medically necessary and the clinically appropriate intervention at this time. We will monitor medications and make changes as indicated. Tentative plan for discharge tomorrow. Coding Level of Care Code Acute Supervisor Estimator And Drafter for Edmundo Larson Diagnoses Schizoaffective disorder F25.9 Acute psychosis F23 Cannabis use disorder, moderate, dependence F12.20 Insomnia G47.00 Insomnia type: unspecified Opioid dependence on agonist therapy F11.20
[2021-12-18 20:40] VITALS: BP 92/54; PULSE 66; RESP 18; TEMP 36.6; O2SAT 99
[2021-12-18] MEDS: zolpidem 5 mg Tablet 10 MG PO (20:43)
[2021-12-18] MEDS: docusate sodium 100 mg Capsule PO (20:43)
[2021-12-19 07:30] VITALS: BP 123/71; PULSE 75; RESP 16; TEMP 36.6; O2SAT 98
[2021-12-19] MEDS: diclofenac 1% Topical Gel 100 gm 4 APPLIC TOPICAL (08:33)
[2021-12-19] MEDS: divalproex ER 500 mg Tablet (24H) 1000 MG PO (08:34)
[2021-12-19] MEDS: ropinirole 1 mg Tablet PO (08:34)
[2021-12-19] MEDS: acetaminophen 325 mg Tablet 650 MG PO (08:34)
[2021-12-19] MEDS: benztropine 1 mg Tablet PO (08:35)
[2021-12-19] MEDS: tizanidine 4 mg Tablet PO (08:35)
[2021-12-19] MEDS: ziprasidone hcl 40 mg Capsule 80 MG PO (08:35)
[2021-12-19] MEDS: carbidopa-levodopa 25-100mg Tablet 1 EACH PO ×2 (08:35→12:45)
[2021-12-19] MEDS: propranolol 20 mg Tablet PO (08:35)
[2021-12-19] MEDS: gabapentin 300 mg Capsule PO (08:36)
[2021-12-19] MEDS: FUROsemide 20 mg Tablet PO (08:36)
[2021-12-19] MEDS: buprenorphine-naloxone 4-1 mg Film 2 EACH SUBLINGUAL (08:36)
[2021-12-19] MEDS: ibuprofen 600 mg Tablet PO (08:37)
[2021-12-19] MEDS: pantoprazole DR 40 mg Tablet PO (08:40)
[2021-12-19] MEDS: hyDROXYzine 25 mg Capsule 50 MG PO (08:40)
[2021-12-19] MEDS: albuterol 8 gm MDI 2 PUFF INHALATION (10:06)
[2021-12-19 10:07] VITALS: PULSE 66; RESP 18; O2SAT 96
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
[2021-12-19 12:06] VITALS: PULSE 66; RESP 18; O2SAT 96
--- NOTE | 2021-12-19 12:18 | DCPLANNER ---
IMM completed on 12/19/21 @ 1204pm. Pt was given a copy of rights and she stated she understands her rights.
[2021-12-19] MEDS: haloperidol 5 mg Tablet PO (12:50)
== END 2021-12-19 14:01 | disposition home or self-care (01) | DRG 885 ==
LOC: ER 11-25 06:00 → NP 11-25 17:08
PROVIDERS: Emergency Medicine; Admitting Provider Psychiatry & Neurology Psychiatry; Emergency Provider Family Medicine; PCP Family Medicine; Visit Provider Psychiatry & Neurology Psychiatry
DX: F25.9 Schizoaffective disorder, unspecified (principal); F11.20 Opioid dependence, uncomplicated; F43.20 Adjustment disorder, unspecified; F12.20 Cannabis dependence, uncomplicated; G47.00 Insomnia, unspecified; F17.210 Nicotine dependence, cigarettes, uncomplicated
CPT/HCPCS: 80053; 80164; 80306; 80307; 81003; 85025; 94640; 96372; 97150; 97165; 99285; J0573; J3486; J3535